=== PATIENT | male | born 1975 | race African-American/Black ===

== ENCOUNTER 2016-12-29 05:11 | Emergency (ER) | payer MEDICARE ==
[~2016-12-29] VITALS: Ht 177.8 cm; Wt 95.0 kg
[~2016-12-29 05:11] MED LIST: ALBU17AE26 IH; ALPR2TAB2 PO; CARI350T PO; DIPH25CA83 PO; FLOV22; INSLAN SQ; INSU100C3 SQ; LEVE1000 PO; LISI40TA4 PO; WARF10TA21 PO
[2016-12-29] MEDS ORDERED: SODIUM CHLORIDE 0.9% 1,000 ML IV ONE (06:04)
[2016-12-29] MEDS ORDERED: LEVETIRACETAM 500MG PREMIX 100 ML IV ONE (06:15)
[2016-12-29] MEDS ORDERED: NITROGLYCERIN OINT 1GM/INCH UDPKT TD ONE (06:15)
[2016-12-29 06:21] LABS: HEMATOCRIT. 30.1 % (42.0-52.0); HEMOGLOBIN. 9.7 g/dL (14.0-18.0); MEAN CORPUSCULAR HEMOGLOBIN 25.3 pg (28.0-32.0); MEAN CORPUSCULAR HGB CONC 32.2 g/dL (31.0-37.0); MEAN CORPUSCULAR VOLUME 78.8 fL (80.0-94.0); RED BLOOD CELL COUNT 3.82 mill/uL (4.7-6.1); RED CELL DISTRIBUTION WIDTH 16.3 % (11.6-14.6); WHITE BLOOD COUNT 7.3 x1000/uL (4.5-11.0)
[2016-12-29 06:34] LABS: DIFFERENTIAL COMMENT 1
[2016-12-29 06:38] LABS: ALANINE AMINOTRANSFERASE 15 IU/L (13-61); ANION GAP 9; CALCIUM 8.6 mg/dL (8.5-10.1); CARBON DIOXIDE 21 mEq/L (21-32); CHLORIDE 113 mEq/L (98-107); INDEX HEMOLYSI 1 (1-3); INDEX ICTERIC 1 (1-4); INDEX LIPEMIC 1 (1-3); LIPASE 235 IU/L (73-393); NT PRO B-TYPE NATRIURETIC PEP 134 pg/mL (5-125); TROPONIN I 0.13 ng/mL (0.00-0.04); UREA NITROGEN BLOOD 30 mg/dL (7-21); eGFR 50 mL/min (>60)
[2016-12-29] MEDS ORDERED: LORAZEPAM 2MG/ML CPJ IV ONE (06:45)
[2016-12-29 07:30] VITALS: BP 156/90
== END 2016-12-29 08:02 | disposition left against medical advice (07) ==
LOC: ER 05:13
DX: R07.89 Other chest pain (principal); C71.9 Malignant neoplasm of brain, unspecified; G40.909 Epilepsy, unspecified, not intractable, without status epilepticus; E11.65 Type 2 diabetes mellitus with hyperglycemia; E11.22 Type 2 diabetes mellitus with diabetic chronic kidney disease; N18.9 Chronic kidney disease, unspecified; I12.9 Hypertensive chronic kidney disease with stage 1 through stage 4 chronic kidney disease, or unspecified chronic kidney disease; I50.9 Heart failure, unspecified; D50.9 Iron deficiency anemia, unspecified; D56.3 Thalassemia minor; E87.8 Other disorders of electrolyte and fluid balance, not elsewhere classified; E87.5 Hyperkalemia; Z88.6 Allergy status to analgesic agent; Z88.8 Allergy status to other drugs, medicaments and biological substances; Z88.5 Allergy status to narcotic agent; Z88.0 Allergy status to penicillin; Z88.1 Allergy status to other antibiotic agents; Z91.012 Allergy to eggs; Z89.611 Acquired absence of right leg above knee; Z79.4 Long term (current) use of insulin; Z79.01 Long term (current) use of anticoagulants; J40 Bronchitis, not specified as acute or chronic; Z79.899 Other long term (current) drug therapy
CPT/HCPCS: 36415; 71010; 80053; 83690; 83880; 84484; 85025; 87804; 93005; 96360; 99285; J1953; J2060; J7030; Z7610

== ENCOUNTER 2017-01-21 18:29 | Observation (INO) | payer MEDICAID, MEDICARE ==
[~2017-01-21] VITALS: Ht 185.4 cm; Wt 119.7 kg
[2017-01-21] MEDS ORDERED: SODIUM CHLORIDE 0.9% 1,000 ML IV ONE (19:13)
[2017-01-21] MEDS ORDERED: METRONIDAZOLE 500 MG PREMIX 100 ML IV ONE (19:15)
[2017-01-21] MEDS ORDERED: AZTREONAM 2 GM in DEXT 5% WATER 100 ML IV ONE (19:15)
[2017-01-21] MEDS ORDERED: VANCOMYCIN 1,500 MG in DEXT 5% WATER 250 ML IV ONE (19:15)
[2017-01-21 19:50] LABS: PROTHROMBIN TIME 10.7 sec
[2017-01-21 19:54] LABS: BASOPHILS % 0.3 % (0.0-2.0); DIFFERENTIAL COMMENT 0; EOSINOPHILS % 0.5 % (0.0-5.0); HEMATOCRIT. 25.9 % (42.0-52.0); HEMOGLOBIN. 8.3 g/dL (14.0-18.0); LYMPHOCYTES % 49.5 % (20.0-50.0); MEAN CORPUSCULAR HEMOGLOBIN 24.4 pg (28.0-32.0); MEAN CORPUSCULAR HGB CONC 32.1 g/dL (31.0-37.0); MEAN CORPUSCULAR VOLUME 75.9 fL (80.0-94.0); NEUTROPHILS % 42.7 % (40.0-76.0); PLATELET 179 x1000/uL (130-400); RED BLOOD CELL COUNT 3.42 mill/uL (4.7-6.1); RED CELL DISTRIBUTION WIDTH 17.2 % (11.6-14.6); WHITE BLOOD COUNT 4.9 x1000/uL (4.5-11.0)
[2017-01-21 19:57] LABS: ALANINE AMINOTRANSFERASE 10 IU/L (13-61); ALBUMIN 2.7 g/dL (3.4-5.0); ANION GAP 13; CALCIUM 8.9 mg/dL (8.5-10.1); CARBON DIOXIDE 24 mEq/L (21-32); CHLORIDE 113 mEq/L (98-107); INDEX HEMOLYSI 1 (1-3); INDEX ICTERIC 1 (1-4); INDEX LIPEMIC 1 (1-3); UREA NITROGEN BLOOD 14 mg/dL (7-21); eGFR > 60 mL/min (>60)
[2017-01-21] MEDS ORDERED: MORPHINE SULFATE 4 MG/ML CPJ (NOT FOR IM USE) IV ONE (20:00)
[2017-01-21] MEDS ORDERED: ONDANSETRON HCL 4MG/2ML VIAL IV ONE (20:00)
[2017-01-21] MEDS ORDERED: LEVETIRACETAM 1,000 MG in SODIUM CHLORIDE 0.9% 100 ML IV ONE (21:00)
[2017-01-21 22:22] LABS: CLARITY URINE CLEAR (CLEAR); COLOR URINE YELLOW (YELLOW); GLUCOSE URINE NEGATIVE (NEGATIVE); KETONES URINE NEGATIVE (NEGATIVE); LEUKOCYTE ESTERASE URINE NEGATIVE (NEGATIVE); NITRITE URINE NEGATIVE (NEGATIVE); OCCULT BLOOD URINE 1+ (NEGATIVE); PROTEIN URINE 3+ (NEGATIVE); SPECIFIC GRAVITY URINE 1.012 (1.005-1.030); UROBILINOGEN URINE 0.2 E.U./dL (0.2-1.0)
[2017-01-21 22:55] LABS: BACTERIA URINE 1+; SQUAMOUS EPITHELIAL CELL URINE NONE SEEN /lpf (RARE/1+)
[2017-01-22] VITALS: BP 130/98
[2017-01-22 00:30] VITALS: BP 130/98
[2017-01-22] MEDS ORDERED: MORP60TA6 PO (00:54)
[2017-01-22] MEDS ORDERED: DEXTROSE 50% WATER 50ML SYRINGE IV PRN (01:15)
[2017-01-22] MEDS: MORPHINE SULFATE 2 MG/ML CPJ (NOT FOR IM USE) IV PRN ×3 (01:50→10:47)
[2017-01-22 04:00] VITALS: BP 111/60
[2017-01-22 06:15] LABS: HEMATOCRIT. 22.7 % (42.0-52.0); HEMOGLOBIN. 7.2 g/dL (14.0-18.0); MEAN CORPUSCULAR HEMOGLOBIN 24.6 pg (28.0-32.0); MEAN CORPUSCULAR HGB CONC 31.9 g/dL (31.0-37.0); MEAN CORPUSCULAR VOLUME 77.3 fL (80.0-94.0); MEAN PLATELET VOLUME 7.3 fl (7.4-10.4); PLATELET 139 x1000/uL (130-400); RED BLOOD CELL COUNT 2.93 mill/uL (4.7-6.1); RED CELL DISTRIBUTION WIDTH 17.2 % (11.6-14.6); WHITE BLOOD COUNT 4.5 x1000/uL (4.5-11.0)
[2017-01-22] MEDS: BLOOD SUGAR DIAGNOSTIC STRIP TEST SCH ×2 (06:17→12:40)
[2017-01-22 07:03] LABS: DIFFERENTIAL COMMENT 1
[2017-01-22] MEDS: INSULIN LISPRO 100 UNITS/ML SUBCUT SCH ×2 (07:25→13:10)
[2017-01-22 08:00] VITALS: BP 152/88
[2017-01-22 08:22] LABS: ALANINE AMINOTRANSFERASE 9 IU/L (13-61); ALBUMIN 2.3 g/dL (3.4-5.0); ANION GAP 11; CALCIUM 8.2 mg/dL (8.5-10.1); CARBON DIOXIDE 26 mEq/L (21-32); CHLORIDE 113 mEq/L (98-107); HDL CHOLESTEROL 24 mg/dL (40-59); INDEX HEMOLYSI 1 (1-3); INDEX ICTERIC 1 (1-4); INDEX LIPEMIC 1 (1-3); LDL CHOLESTEROL 65 mg/dL (5-100); TRIGLYCERIDE 111 mg/dL (0-150); UREA NITROGEN BLOOD 13 mg/dL (7-21); eGFR > 60 mL/min (>60)
[2017-01-22] MEDS ORDERED: ENOXAPARIN 30MG/0.3ML SYR SUBCUT SCH (09:00)
[2017-01-22] MEDS ORDERED: ASPIRIN 81MG TABLET PO SCH (09:00)
[2017-01-22] MEDS ORDERED: CELECOXIB 200MG CAPSULE PO SCH (09:00)
[2017-01-22] MEDS ORDERED: LEVETIRACETAM 500MG TABLET PO SCH (09:00)
[2017-01-22 11:21] LABS: ANISOCYTOSIS 2+; PLATELET ESTIMATE NORMAL
[2017-01-22 11:22] LABS: HYPOCHROMASIA 1+
[2017-01-22] MEDS ORDERED: PIPERACILLIN SODIUM/TAZOBACTAM 4.5 G in DEXT 5% WATER 100 ML IV SCH (11:30)
[2017-01-22 12:00] VITALS: BP 152/99
[2017-01-22] MEDS ORDERED: MEROPENEM 500 MG in SODIUM CHLORIDE 0.9% 50 ML IV SCH (13:30)
[2017-01-22] MEDS ORDERED: VANCOMYCIN 2,000 MG in DEXT 5% WATER 500 ML IV SCH (14:00)
== END 2017-01-22 14:00 | disposition left against medical advice (07) ==
LOC: ER 18:30 → 7WST 21:07 → INTOOBSV 21:07
PROVIDERS: ADMIT Internal Medicine; ATTEND Internal Medicine
DX: G40.909 Epilepsy, unspecified, not intractable, without status epilepticus (principal); J44.9 Chronic obstructive pulmonary disease, unspecified; J45.909 Unspecified asthma, uncomplicated; I50.9 Heart failure, unspecified; I11.0 Hypertensive heart disease with heart failure; E11.628 Type 2 diabetes mellitus with other skin complications; L08.9 Local infection of the skin and subcutaneous tissue, unspecified; D64.9 Anemia, unspecified; I73.9 Peripheral vascular disease, unspecified; Z86.718 Personal history of other venous thrombosis and embolism
CPT/HCPCS: 36415; 71010; 73630; 80053; 80061; 81001; 82962; 83036; 83605; 85025; 85610; 86850; 86900; 86901; 86920; 87040; 87086; 93005; 96365; 96366; 96367; 96375; 96376; 99285; G0378; J1953; J2185; J2270; J2405; J3370; J3490; J7030; J7050; J7060

== ENCOUNTER 2017-02-17 20:15 | Emergency (ER) | payer MEDICAID, MEDICARE ==
[~2017-02-17] VITALS: Ht 185.4 cm; Wt 118.0 kg
[~2017-02-17 20:15] MED LIST changes: +MORP60TA6 PO
[2017-02-17 22:25] VITALS: BP 170/81
[2017-02-17] MEDS ORDERED: VANCOMYCIN 1 G PREMIX 200 ML IV SCH (22:45)
== END 2017-02-18 00:32 | disposition left against medical advice (07) ==
LOC: ER 20:15
DX: R55 Syncope and collapse (principal); E11.9 Type 2 diabetes mellitus without complications; J45.909 Unspecified asthma, uncomplicated; J44.9 Chronic obstructive pulmonary disease, unspecified; I11.0 Hypertensive heart disease with heart failure; I50.9 Heart failure, unspecified; R51 Headache; Z79.4 Long term (current) use of insulin; Z79.01 Long term (current) use of anticoagulants; Z88.0 Allergy status to penicillin; Z88.5 Allergy status to narcotic agent; Z88.1 Allergy status to other antibiotic agents; Z88.6 Allergy status to analgesic agent; Z91.012 Allergy to eggs; W05.0XXA Fall from non-moving wheelchair, initial encounter; Y93.89 Activity, other specified; Y99.8 Other external cause status; Y92.89 Other specified places as the place of occurrence of the external cause
CPT/HCPCS: 70450; 93005; 99284; Z7610; 80053; 85610

== ENCOUNTER 2017-02-24 18:43 | Emergency (ER) | payer MEDICARE ==
[~2017-02-24] VITALS: Ht 157.5 cm; Wt 100.0 kg
[2017-02-24] MEDS ORDERED: MORPHINE SULFATE 4 MG/ML CPJ (NOT FOR IM USE) IV STA (23:13)
[2017-02-24] MEDS ORDERED: ONDANSETRON HCL 4MG/2ML VIAL IV STA (23:13)
[2017-02-24] MEDS ORDERED: CLINDAMYCIN 600 MG in DEXTROSE 5% WATER 50 ML IV ONE (23:15)
[2017-02-24 23:52] LABS: DIFFERENTIAL COMMENT 1; HEMATOCRIT. 24.6 % (42.0-52.0); MEAN CORPUSCULAR HEMOGLOBIN 25.3 pg (28.0-32.0); MEAN CORPUSCULAR HGB CONC 32.4 g/dL (31.0-37.0); MEAN PLATELET VOLUME 7.7 fl (7.4-10.4); PLATELET 121 x1000/uL (130-400); RED BLOOD CELL COUNT 3.15 mill/uL (4.7-6.1); RED CELL DISTRIBUTION WIDTH 17.1 % (11.6-14.6); WHITE BLOOD COUNT 5.5 x1000/uL (4.5-11.0)
[2017-02-25 00:03] LABS: PROTHROMBIN TIME 10.6 sec
[2017-02-25 00:06] LABS: ALANINE AMINOTRANSFERASE 19 IU/L (13-61); ALBUMIN 2.6 g/dL (3.4-5.0); ANION GAP 10; CALCIUM 8.3 mg/dL (8.5-10.1); CARBON DIOXIDE 24 mEq/L (21-32); CHLORIDE 113 mEq/L (98-107); INDEX HEMOLYSI 1 (1-3); INDEX ICTERIC 1 (1-4); INDEX LIPEMIC 1 (1-3); TROPONIN I 0.16 ng/mL (0.00-0.04); UREA NITROGEN BLOOD 17 mg/dL (7-21); eGFR 50 mL/min (>60)
[2017-02-25 00:15] LABS: HYPOCHROMASIA 1+; PLATELET ESTIMATE DECREASED
[2017-02-25 00:16] LABS: ANISOCYTOSIS 1+
[2017-02-25 01:30] VITALS: BP 140/90
[2017-02-25] MEDS ORDERED: DIPHENHYDRAMINE 50MG/ML VIAL IM ONE (02:45)
== END 2017-02-25 06:15 | disposition home or self-care (01) ==
LOC: ER 18:51
DX: R55 Syncope and collapse (principal); L97.429 Non-pressure chronic ulcer of left heel and midfoot with unspecified severity; E11.9 Type 2 diabetes mellitus without complications; I10 Essential (primary) hypertension; J44.9 Chronic obstructive pulmonary disease, unspecified; I50.9 Heart failure, unspecified; J45.909 Unspecified asthma, uncomplicated; Z89.611 Acquired absence of right leg above knee; Z88.0 Allergy status to penicillin; Z88.6 Allergy status to analgesic agent; Z91.013 Allergy to seafood; Z79.4 Long term (current) use of insulin; Z86.73 Personal history of transient ischemic attack (TIA), and cerebral infarction without residual deficits
CPT/HCPCS: 36415; 70450; 71010; 73620; 80053; 83605; 84484; 85025; 85610; 87040; 93005; 96365; 96372; 96375; 99285; J1200; J2270; J2405; J3490; Z7610; J7060

== ENCOUNTER 2017-03-31 09:37 | Observation (INO) | payer MEDICAID, MEDICARE ==
[~2017-03-31] VITALS: Ht 180.3 cm; Wt 94.3 kg
[2017-03-31] MEDS ORDERED: MORPHINE SULFATE 4 MG/ML CPJ (NOT FOR IM USE) IV STA (09:49)
[2017-03-31] MEDS ORDERED: ONDANSETRON HCL 4MG/2ML VIAL IV STA (09:49)
[2017-03-31] MEDS ORDERED: NITROGLYCERIN OINT 1GM/INCH UDPKT TD STA (09:49)
[2017-03-31 10:18] LABS: BASOPHILS % 0.5 % (0.0-2.0); EOSINOPHILS % 2.5 % (0.0-5.0); HEMATOCRIT. 24.5 % (42.0-52.0); HEMOGLOBIN. 7.9 g/dL (14.0-18.0); LYMPHOCYTES % 52.6 % (20.0-50.0); MEAN CORPUSCULAR HEMOGLOBIN 26.2 pg (28.0-32.0); MEAN CORPUSCULAR VOLUME 81.1 fL (80.0-94.0); MEAN PLATELET VOLUME 7.3 fl (7.4-10.4); MONOCYTES % 8.2 % (2.0-8.0); NEUTROPHILS % 36.2 % (40.0-76.0); PLATELET 192 x1000/uL (130-400); RED BLOOD CELL COUNT 3.02 mill/uL (4.7-6.1); RED CELL DISTRIBUTION WIDTH 18.1 % (11.6-14.6)
[2017-03-31 10:22] LABS: CHLORIDE 110 mEq/L (98-107)
[2017-03-31 10:25] LABS: INR 1.1; PARTIAL THROMBOPLASTIN TIME 25.4 sec (24.0-34.0); PROTHROMBIN TIME 11.4 sec
[2017-03-31 10:36] LABS: CARBON DIOXIDE 23 mEq/L (21-32); CREATINE KINASE 75 IU/L (39-308); CREATINE KINASE MB FRACTION 4.5 ng/mL (0.5-3.6)
[2017-03-31 10:44] LABS: TROPONIN I 0.63 ng/mL (0.00-0.04)
[2017-03-31] MEDS ORDERED: FUROSEMIDE 20MG/2ML VIAL IVP ONE (11:30)
[2017-03-31 16:38] VITALS: BP 119/72
[2017-03-31] MEDS ORDERED: IPRATROPIUM/ALBUTEROL 0.5-3(2.5)MG/3ML NEB INH PRN (18:15)
[2017-03-31] MEDS ORDERED: CLONIDINE 0.1MG TABLET PO PRN (18:15)
[2017-03-31] MEDS: ENOXAPARIN 40MG/0.4ML SYR SUBCUT SCH (19:43)
[2017-03-31 20:00] VITALS: BP 137/83
[2017-03-31] MEDS ORDERED: ONDANSETRON HCL 4MG/2ML VIAL IV PRN (21:00)
[2017-03-31] MEDS ORDERED: ACETAMINOPHEN 650MG/20.3ML UDC PO PRN (21:00)
[2017-03-31 23:52] LABS: TROPONIN I 0.54 ng/mL (0.00-0.04)
[2017-04-01] VITALS: BP 140/91
[2017-04-01 04:00] VITALS: BP 160/92
[2017-04-01 08:00] VITALS: BP 142/91
[2017-04-01 08:10] LABS: BASOPHILS % 0.5 % (0.0-2.0); EOSINOPHILS % 2.5 % (0.0-5.0); HEMATOCRIT. 22.5 % (42.0-52.0); HEMOGLOBIN. 7.4 g/dL (14.0-18.0); LYMPHOCYTES % 45.3 % (20.0-50.0); MEAN CORPUSCULAR HEMOGLOBIN 26.2 pg (28.0-32.0); MEAN CORPUSCULAR VOLUME 79.8 fL (80.0-94.0); MEAN PLATELET VOLUME 7.1 fl (7.4-10.4); MONOCYTES % 6.1 % (2.0-8.0); NEUTROPHILS % 45.6 % (40.0-76.0); PLATELET 136 x1000/uL (130-400); RED BLOOD CELL COUNT 2.82 mill/uL (4.7-6.1); RED CELL DISTRIBUTION WIDTH 17.8 % (11.6-14.6)
[2017-04-01 08:23] LABS: CREATINE KINASE 48 IU/L (39-308); HDL CHOLESTEROL 28 mg/dL (40-59); LDL CHOLESTEROL 48 mg/dL (5-100); T4 FREE 1.54 ng/dL (0.76-1.46)
[2017-04-01 08:39] LABS: TROPONIN I 0.71 ng/mL (0.00-0.04)
[2017-04-01] MEDS: ENOXAPARIN 40MG/0.4ML SYR SUBCUT SCH (09:00)
[2017-04-01 12:00] VITALS: BP 158/83
[2017-04-01 13:10] VITALS: BP 158/83
== END 2017-04-01 13:45 | disposition home or self-care (01) ==
LOC: ER 09:51 → INTOOBSV 11:51 → 5WST 11:51 → EDBEDREQ 11:53 → ENRESERV 15:51 → CANBEDREQ 16:03 → 5WST 18:01
PROVIDERS: ADMIT Internal Medicine; ATTEND Internal Medicine
DX: R07.89 Other chest pain (principal); E11.22 Type 2 diabetes mellitus with diabetic chronic kidney disease; I13.0 Hypertensive heart and chronic kidney disease with heart failure and stage 1 through stage 4 chronic kidney disease, or unspecified chronic kidney disease; I50.9 Heart failure, unspecified; J44.9 Chronic obstructive pulmonary disease, unspecified; N18.9 Chronic kidney disease, unspecified; D63.8 Anemia in other chronic diseases classified elsewhere; E11.51 Type 2 diabetes mellitus with diabetic peripheral angiopathy without gangrene; Z79.4 Long term (current) use of insulin; Z86.711 Personal history of pulmonary embolism; Z86.718 Personal history of other venous thrombosis and embolism; Z86.73 Personal history of transient ischemic attack (TIA), and cerebral infarction without residual deficits; Z91.19 Patient's noncompliance with other medical treatment and regimen; Z82.49 Family history of ischemic heart disease and other diseases of the circulatory system
CPT/HCPCS: 36415; 71010; 80048; 80053; 80061; 80307; 82550; 82553; 82962; 83690; 83880; 84439; 84443; 84484; 85025; 85610; 85730; 93005; 96374; 96375; 96376; 99285; G0378; J1940; J2270; J2405; J7050

== ENCOUNTER 2017-05-21 22:54 | Emergency (ER) | payer MEDICAID, MEDICARE ==
[~2017-05-21] VITALS: Ht 188 cm; Wt 112.0 kg
[2017-05-22] MEDS ORDERED: MORPHINE SULFATE 4 MG/ML CPJ (NOT FOR IM USE) IV STA (00:55)
[2017-05-22] MEDS ORDERED: ONDANSETRON HCL 4MG/2ML VIAL IV STA (00:55)
[2017-05-22 01:20] LABS: BASOPHILS % 0.4 % (0.0-2.0); HEMATOCRIT. 25.3 % (42.0-52.0); HEMOGLOBIN. 8.2 g/dL (14.0-18.0); LYMPHOCYTES % 56.3 % (20.0-50.0); MEAN CORPUSCULAR HEMOGLOBIN 25.9 pg (28.0-32.0); MEAN CORPUSCULAR VOLUME 79.3 fL (80.0-94.0); MEAN PLATELET VOLUME 7.6 fl (7.4-10.4); MONOCYTES % 6.7 % (2.0-8.0); NEUTROPHILS % 35.6 % (40.0-76.0); PLATELET 141 x1000/uL (130-400); RED BLOOD CELL COUNT 3.18 mill/uL (4.7-6.1); RED CELL DISTRIBUTION WIDTH 16.9 % (11.6-14.6)
[2017-05-22 01:37] LABS: CARBON DIOXIDE 17 mEq/L (21-32); CHLORIDE 112 mEq/L (98-107); TROPONIN I 0.28 ng/mL (0.00-0.04)
[2017-05-22 06:05] VITALS: BP 143/84
== END 2017-05-22 06:21 | disposition home or self-care (01) ==
LOC: ER 22:54
DX: R07.9 Chest pain, unspecified (principal); R11.0 Nausea; J45.909 Unspecified asthma, uncomplicated; E11.9 Type 2 diabetes mellitus without complications; I11.0 Hypertensive heart disease with heart failure; I50.9 Heart failure, unspecified; Z91.013 Allergy to seafood; Z88.8 Allergy status to other drugs, medicaments and biological substances; Z91.018 Allergy to other foods; Z88.0 Allergy status to penicillin; Z88.6 Allergy status to analgesic agent; Z88.4 Allergy status to anesthetic agent; Z88.1 Allergy status to other antibiotic agents; Z91.012 Allergy to eggs; Z79.01 Long term (current) use of anticoagulants; Z79.4 Long term (current) use of insulin
CPT/HCPCS: 36415; 71010; 80053; 84484; 85025; 93005; 96374; 96375; 99285; J2270; J2405; Z7610

== ENCOUNTER 2018-07-16 15:27 | Inpatient (IN) | payer OTHER, MEDICAID ==
[~2018-07-16] VITALS: Ht 177.8 cm; Wt 85.7 kg
[~2018-07-16 15:27] MED LIST changes: -CARI350T PO; +S350 PO
[2018-07-16] MEDS ORDERED: SODIUM CHLORIDE 0.9% 1000ML BAG (SEPSIS BOLUS) IV ONE (16:00)
[2018-07-16] MEDS ORDERED: MEROPENEM 1,000 MG in SODIUM CHLORIDE 0.9% 100 ML IV ONE (17:00)
[2018-07-16] MEDS ORDERED: VANCOMYCIN 1 G PREMIX 200 ML IV ONE (17:00)
[2018-07-16] MEDS ORDERED: MORPHINE SULFATE 4 MG/ML CPJ (NOT FOR IM USE) IV STA ×2 (18:17→20:36)
[2018-07-16 18:26] LABS: BG BASE EXCESS -1.5 mmol/L (-2.0-2.0); BG CARBOXYHEMOGLOBIN 0.4 % (0.5-1.5); BG DEOXYHEMOGLOBIN 3.4 % (0.0-5.0); BG FRACTION INSPIRED OXYGEN 21; BG HCO3 ACT 23.3 mmol/L (22.0-26.0); BG METHEMOGLOBIN 0.3 % (0.0-1.5); BG OXYGEN SATURATION 96.6 % (92.0-98.5); BG OXYHEMOGLOBIN 95.9 % (94.0-97.0); BG PCO2 39.4 mmHg (35.0-45.0); BG PO2 97.5 mmHg (75.0-100.0); BG SAMPLE SITE RIGHT BRACHIAL; BG TOTAL HEMOGLOBIN 8.4 g/dL (12.0-18.0); BG VENT MODE ROOM AIR
[2018-07-16 18:45] LABS: CHLORIDE 98 mEq/L (98-107)
[2018-07-16 18:46] LABS: BASOPHILS % 0.7 % (0.0-2.0); HEMOGLOBIN. 7.3 g/dL (14.0-18.0); LYMPHOCYTES % 40.6 % (20.0-50.0); MEAN CORPUSCULAR HEMOGLOBIN 29.7 pg (28.0-32.0); MEAN PLATELET VOLUME 7.4 fl (7.4-10.4); MONOCYTES % 7.9 % (2.0-8.0); NEUTROPHILS % 49.8 % (40.0-76.0); PLATELET 139 x1000/uL (130-400); RED BLOOD CELL COUNT 2.47 mill/uL (4.7-6.1); RED CELL DISTRIBUTION WIDTH 14.8 % (11.6-14.6)
[2018-07-16 18:47] LABS: INR 1.3; PROTHROMBIN TIME 12.9 sec (9.1-11.1)
[2018-07-16 18:49] LABS: ETHANOL BLOOD < 10 mg/dL
[2018-07-16] MEDS ORDERED: DEXTROSE 50% WATER 50ML SYRINGE IV ONE (19:15)
[2018-07-16] MEDS ORDERED: CLONIDINE 0.1MG TABLET PO PRN (20:30)
[2018-07-16] MEDS ORDERED: GUAIFENESIN 200MG/10ML SUGAR FREE UDC PO PRN (20:30)
[2018-07-16] MEDS ORDERED: MAGNESIUM/ALUMINUM HYDROXIDE/SIMETHICONE 30ML UDC PO PRN (20:30)
[2018-07-16] MEDS ORDERED: VANCOMYCIN 1 G PREMIX 200 ML IV SCH (20:30)
[2018-07-16 22:17] LABS: BG BASE EXCESS -5.4 mmol/L (-2.0-2.0); BG CARBOXYHEMOGLOBIN 0.4 % (0.5-1.5); BG DEOXYHEMOGLOBIN 3.5 % (0.0-5.0); BG FRACTION INSPIRED OXYGEN 28; BG METHEMOGLOBIN 0.3 % (0.0-1.5); BG OXYGEN SATURATION 96.5 % (92.0-98.5); BG OXYHEMOGLOBIN 95.8 % (94.0-97.0); BG PCO2 38.1 mmHg (35.0-45.0); BG PH 7.337 (7.350-7.450); BG PO2 101.6 mmHg (75.0-100.0); BG SAMPLE SITE RIGHT BRACHIAL; BG TOTAL HEMOGLOBIN 7.8 g/dL (12.0-18.0); BG VENT MODE NASAL CANNULA
[2018-07-16] MEDS ORDERED: ENOXAPARIN 40MG/0.4ML SYR SUBCUT SCH (22:30)
[2018-07-16] MEDS ORDERED: ENOXAPARIN 30MG/0.3ML SYR SUBCUT SCH (22:32)
[2018-07-16] MEDS ORDERED: DEXTROSE 50% WATER 50ML SYRINGE IV PRN (23:30)
[2018-07-17] VITALS: BP 126/88
[2018-07-17] MEDS ORDERED: VANCOMYCIN 2,000 MG in DEXT 5% WATER 500 ML IV NR ×2
[2018-07-17 00:44] VITALS: BP 118/51
[2018-07-17] MEDS: HYDROMORPHONE HCL/PF 2MG/ML CPJ IV PRN ×4 (01:21→20:46)
[2018-07-17] MEDS: CLINDAMYCIN 600MG PREMIX 50 ML IV SCH ×3 (01:21→17:53)
[2018-07-17 03:36] LABS: CLARITY URINE CLEAR (CLEAR); COLOR URINE YELLOW (YELLOW); KETONES URINE NEGATIVE (NEGATIVE); LEUKOCYTE ESTERASE URINE 2+ (NEGATIVE); NITRITE URINE NEGATIVE (NEGATIVE); OCCULT BLOOD URINE 1+ (NEGATIVE); PROTEIN URINE 2+ (NEGATIVE); SPECIFIC GRAVITY URINE 1.016 (1.005-1.030); UROBILINOGEN URINE 0.2 E.U./dL (0.2-1.0)
[2018-07-17 04:00] VITALS: BP 131/80
[2018-07-17 04:05] LABS: *AMPHETAMINES SCREEN URINE NEGATIVE (NEGATIVE); *BARBITURATES SCREEN URINE NEGATIVE (NEGATIVE); *BENZODIAZEPINES SCREEN URINE NEGATIVE (NEGATIVE); *COCAINE SCREEN URINE NEGATIVE (NEGATIVE); METHADONE URINE SCREEN NEGATIVE (NEGATIVE); OPIATES URINE SCREEN PRESUMTIVE POSITIVE (NEGATIVE)
[2018-07-17 04:06] LABS: CANNABINOID URINE SCREEN NEGATIVE (NEGATIVE); PHENCYCLIDINE URINE SCREEN NEGATIVE (NEGATIVE)
[2018-07-17] MEDS: BLOOD SUGAR DIAGNOSTIC STRIP TEST SCH ×4 (06:25→20:57)
[2018-07-17] MEDS: INSULIN LISPRO 100 UNITS/ML SUBCUT SCH ×4 (08:06→21:03)
[2018-07-17] MEDS: DOCUSATE SODIUM 100MG CAPSULE PO SCH (08:08)
[2018-07-17] MEDS ORDERED: FLUCONAZOLE 200MG TABLET PO NR (09:00)
[2018-07-17] MEDS: DIPHENHYDRAMINE 50MG/ML VIAL IV PRN ×3 (09:19→20:52)
[2018-07-17 10:30] LABS: BASOPHILS % 0.6 % (0.0-2.0); EOSINOPHILS % 1.8 % (0.0-5.0); HEMATOCRIT. 22.3 % (42.0-52.0); HEMOGLOBIN. 7.7 g/dL (14.0-18.0); MEAN CORPUSCULAR HEMOGLOBIN 30.7 pg (28.0-32.0); MEAN CORPUSCULAR VOLUME 89.5 fL (80.0-94.0); MEAN PLATELET VOLUME 7.6 fl (7.4-10.4); MONOCYTES % 6.7 % (2.0-8.0); NEUTROPHILS % 61.9 % (40.0-76.0); PLATELET 129 x1000/uL (130-400); RED CELL DISTRIBUTION WIDTH 14.6 % (11.6-14.6)
[2018-07-17 11:16] LABS: CHLORIDE 97 mEq/L (98-107)
[2018-07-17 12:00] VITALS: BP 104/59
[2018-07-17 12:53] LABS: HEPATITIS B SURFACE ANTIGEN NEGATIVE
[2018-07-17 13:23] LABS: HEPATITIS A AB IGM NEGATIVE (NEGATIVE)
[2018-07-17 16:00] VITALS: BP 150/95
[2018-07-17] MEDS: IPRATROPIUM/ALBUTEROL 0.5-3(2.5)MG/3ML NEB HHN SCH ×3 (18:03→23:51)
[2018-07-17 20:18] VITALS: BP 92/36
[2018-07-17] MEDS: ACETAMINOPHEN 325MG TABLET PO PRN (20:47)
[2018-07-18] VITALS (10 sets, daily range): BP systolic 86–134; BP diastolic 41–68
[2018-07-18] MEDS: CLINDAMYCIN 600MG PREMIX 50 ML IV SCH ×3 (02:00→22:16)
[2018-07-18] MEDS: IPRATROPIUM/ALBUTEROL 0.5-3(2.5)MG/3ML NEB HHN SCH ×5 (04:00→20:38)
[2018-07-18] MEDS: DIPHENHYDRAMINE 50MG/ML VIAL IV PRN ×3 (05:36→22:16)
[2018-07-18] MEDS: HYDROMORPHONE HCL/PF 2MG/ML CPJ IV PRN ×2 (05:37→10:49)
[2018-07-18] MEDS: BLOOD SUGAR DIAGNOSTIC STRIP TEST SCH ×4 (06:00→20:00)
[2018-07-18 06:44] LABS: BASOPHILS % 0.2 % (0.0-2.0); EOSINOPHILS % 4.8 % (0.0-5.0); LYMPHOCYTES % 36.4 % (20.0-50.0); MEAN CORPUSCULAR HEMOGLOBIN 30.5 pg (28.0-32.0); MEAN CORPUSCULAR VOLUME 89.1 fL (80.0-94.0); MEAN PLATELET VOLUME 7.9 fl (7.4-10.4); MONOCYTES % 7.8 % (2.0-8.0); NEUTROPHILS % 50.8 % (40.0-76.0); PLATELET 131 x1000/uL (130-400); RED BLOOD CELL COUNT 2.03 mill/uL (4.7-6.1); RED CELL DISTRIBUTION WIDTH 14.3 % (11.6-14.6)
[2018-07-18 07:07] LABS: CHLORIDE 95 mEq/L (98-107)
[2018-07-18 07:38] LABS: HEMATOCRIT. 18.1 % (42.0-52.0); HEMOGLOBIN. 6.2 g/dL (14.0-18.0)
[2018-07-18] MEDS: INSULIN LISPRO 100 UNITS/ML SUBCUT SCH ×3 (07:50→17:50)
[2018-07-18] MEDS ORDERED: LIDOCAINE HCL 1% 20ML VIAL (Pyxis) INJ ONE (07:59)
[2018-07-18] MEDS: DOCUSATE SODIUM 100MG CAPSULE PO SCH (09:00)
[2018-07-18 09:19] LABS: TOTAL IRON BINDING CAPACITY 116 ug/dL (250-450)
[2018-07-18] MEDS: CALCIUM CARBONATE 1250MG TABLET (500MG ELEMENTAL CALCIUM) PO SCH (10:48)
[2018-07-18] MEDS: FOLIC ACID/VITAMIN B COMP W-C TABLET PO SCH (10:48)
[2018-07-18] MEDS ORDERED: INSULIN GLARGINE UD 100 UNITS/ML SYR SUBCUT SCH (11:00)
[2018-07-18 23:41] LABS: HEMATOCRIT 25.3 % (42.0-52.0); HEMOGLOBIN 8.6 g/dL (14.0-18.0)
[2018-07-19] VITALS: BP 161/76
[2018-07-19] MEDS: IPRATROPIUM/ALBUTEROL 0.5-3(2.5)MG/3ML NEB HHN SCH ×5 (00:20→20:33)
[2018-07-19] MEDS: INSULIN LISPRO 100 UNITS/ML SUBCUT SCH ×5 (00:44→20:32)
[2018-07-19] MEDS: HYDROMORPHONE HCL/PF 2MG/ML CPJ IV PRN ×4 (00:49→20:20)
[2018-07-19 04:00] VITALS: BP 127/63
[2018-07-19] MEDS: CLINDAMYCIN 600MG PREMIX 50 ML IV SCH ×3 (06:04→21:20)
[2018-07-19] MEDS: BLOOD SUGAR DIAGNOSTIC STRIP TEST SCH ×4 (07:29→20:39)
[2018-07-19 08:00] VITALS: BP 128/68
[2018-07-19] MEDS: FOLIC ACID/VITAMIN B COMP W-C TABLET PO SCH (08:01)
[2018-07-19] MEDS: CALCIUM CARBONATE 1250MG TABLET (500MG ELEMENTAL CALCIUM) PO SCH (08:01)
[2018-07-19] MEDS: DIPHENHYDRAMINE 50MG/ML VIAL IV PRN ×3 (08:01→21:19)
[2018-07-19] MEDS: DOCUSATE SODIUM 100MG CAPSULE PO SCH (08:11)
[2018-07-19] MEDS: INSULIN GLARGINE UD 100 UNITS/ML SYR SUBCUT SCH (09:48)
[2018-07-19 10:29] LABS: BASOPHILS % 0.4 % (0.0-2.0); EOSINOPHILS % 7.2 % (0.0-5.0); HEMATOCRIT. 26.2 % (42.0-52.0); HEMOGLOBIN. 8.9 g/dL (14.0-18.0); MEAN CORPUSCULAR HEMOGLOBIN 29.2 pg (28.0-32.0); MEAN CORPUSCULAR VOLUME 86.1 fL (80.0-94.0); MEAN PLATELET VOLUME 7.8 fl (7.4-10.4); MONOCYTES % 7.1 % (2.0-8.0); NEUTROPHILS % 61.3 % (40.0-76.0); PLATELET 162 x1000/uL (130-400); RED BLOOD CELL COUNT 3.05 mill/uL (4.7-6.1); RED CELL DISTRIBUTION WIDTH 17.5 % (11.6-14.6)
[2018-07-19 11:54] LABS: CHLORIDE 100 mEq/L (98-107)
[2018-07-19 12:00] VITALS: BP 116/59
[2018-07-19 12:19] LABS: CREATINE KINASE 1709 IU/L (39-308)
[2018-07-19] MEDS: FERROUS SULFATE 325MG TABLET PO SCH ×2 (13:33→18:27)
[2018-07-19] MEDS ORDERED: OSELTAMIVIR 30MG CAPSULE PO SCH ×2 (15:42→15:44)
[2018-07-19 16:00] VITALS: BP 98/50
[2018-07-19] MEDS ORDERED: OSELTAMIVIR 30MG CAPSULE PO NR (17:00)
[2018-07-19] MEDS: FLUCONAZOLE 100MG TABLET PO SCH (18:28)
[2018-07-19 20:00] VITALS: BP 115/56
[2018-07-19] MEDS: EPOETIN ALFA 10000UNITS/ML VIAL SUBCUT SCH (20:20)
[2018-07-20] VITALS: BP 100/50
[2018-07-20] MEDS: IPRATROPIUM/ALBUTEROL 0.5-3(2.5)MG/3ML NEB HHN SCH ×7 (00:16→21:14)
[2018-07-20 04:00] VITALS: BP 127/62
[2018-07-20] MEDS: HYDROMORPHONE HCL/PF 2MG/ML CPJ IV PRN ×5 (04:41→23:40)
[2018-07-20] MEDS: CLINDAMYCIN 600MG PREMIX 50 ML IV SCH (05:10)
[2018-07-20] MEDS: DIPHENHYDRAMINE 50MG/ML VIAL IV PRN ×3 (06:26→20:02)
[2018-07-20 06:28] LABS: BASOPHILS % 0.5 % (0.0-2.0); EOSINOPHILS % 9.6 % (0.0-5.0); HEMATOCRIT. 23.9 % (42.0-52.0); HEMOGLOBIN. 8.2 g/dL (14.0-18.0); LYMPHOCYTES % 40.8 % (20.0-50.0); MEAN CORPUSCULAR HEMOGLOBIN 29.8 pg (28.0-32.0); MEAN CORPUSCULAR VOLUME 86.8 fL (80.0-94.0); MEAN PLATELET VOLUME 7.8 fl (7.4-10.4); MONOCYTES % 9.4 % (2.0-8.0); NEUTROPHILS % 39.7 % (40.0-76.0); PLATELET 153 x1000/uL (130-400); RED BLOOD CELL COUNT 2.75 mill/uL (4.7-6.1); RED CELL DISTRIBUTION WIDTH 16.8 % (11.6-14.6)
[2018-07-20] MEDS: FERROUS SULFATE 325MG TABLET PO SCH ×3 (07:50→17:50)
[2018-07-20] MEDS: BLOOD SUGAR DIAGNOSTIC STRIP TEST SCH ×4 (07:50→21:27)
[2018-07-20] MEDS: INSULIN LISPRO 100 UNITS/ML SUBCUT SCH ×4 (07:50→21:31)
[2018-07-20] MEDS: DOCUSATE SODIUM 100MG CAPSULE PO SCH (09:00)
[2018-07-20] MEDS ORDERED: NITROGLYCERIN 0.4MG TABLET SL SL PRN (09:30)
[2018-07-20] MEDS: FOLIC ACID/VITAMIN B COMP W-C TABLET PO SCH (09:36)
[2018-07-20] MEDS: FLUCONAZOLE 100MG TABLET PO SCH (09:36)
[2018-07-20] MEDS: CALCIUM CARBONATE 1250MG TABLET (500MG ELEMENTAL CALCIUM) PO SCH (09:37)
[2018-07-20] MEDS: INSULIN GLARGINE UD 100 UNITS/ML SYR SUBCUT SCH (10:00)
[2018-07-20 12:00] VITALS: BP 135/79
[2018-07-20] MEDS ORDERED: VANCOMYCIN 750 MG PREMIX 150 ML IV SCH (18:00)
[2018-07-20 20:00] VITALS: BP 127/74
[2018-07-21] MEDS: DIPHENHYDRAMINE 50MG/ML VIAL IV PRN ×4 (02:11→21:01)
[2018-07-21] MEDS: IPRATROPIUM/ALBUTEROL 0.5-3(2.5)MG/3ML NEB HHN SCH ×5 (04:00→20:59)
[2018-07-21 04:03] VITALS: BP 114/63
[2018-07-21] MEDS: BLOOD SUGAR DIAGNOSTIC STRIP TEST SCH ×5 (06:27→22:05)
[2018-07-21] MEDS: HYDROMORPHONE HCL/PF 2MG/ML CPJ IV PRN ×4 (06:27→19:59)
[2018-07-21 06:54] LABS: BASOPHILS % 0.5 % (0.0-2.0); EOSINOPHILS % 9.6 % (0.0-5.0); LYMPHOCYTES % 39.9 % (20.0-50.0); MEAN CORPUSCULAR HEMOGLOBIN 29.1 pg (28.0-32.0); MEAN PLATELET VOLUME 7.5 fl (7.4-10.4); MONOCYTES % 9.5 % (2.0-8.0); NEUTROPHILS % 40.5 % (40.0-76.0); PLATELET 191 x1000/uL (130-400); RED BLOOD CELL COUNT 3.27 mill/uL (4.7-6.1); RED CELL DISTRIBUTION WIDTH 17.2 % (11.6-14.6)
[2018-07-21 07:08] LABS: HEMATOCRIT. 28.5 % (42.0-52.0); HEMOGLOBIN. 9.5 g/dL (14.0-18.0)
[2018-07-21] MEDS: FERROUS SULFATE 325MG TABLET PO SCH ×3 (07:55→17:16)
[2018-07-21] MEDS: INSULIN LISPRO 100 UNITS/ML SUBCUT SCH ×4 (07:56→22:05)
[2018-07-21 08:00] VITALS: BP 101/60
[2018-07-21] MEDS: FLUCONAZOLE 100MG TABLET PO SCH (08:25)
[2018-07-21] MEDS: FOLIC ACID/VITAMIN B COMP W-C TABLET PO SCH (08:25)
[2018-07-21] MEDS: DOCUSATE SODIUM 100MG CAPSULE PO SCH ×2 (08:25→08:28)
[2018-07-21] MEDS: CALCIUM CARBONATE 1250MG TABLET (500MG ELEMENTAL CALCIUM) PO SCH (08:25)
[2018-07-21] MEDS: INSULIN GLARGINE UD 100 UNITS/ML SYR SUBCUT SCH (10:16)
[2018-07-21 12:00] VITALS: BP 93/51
[2018-07-21 16:00] VITALS: BP 94/54
[2018-07-21] MEDS ORDERED: GABAPENTIN 300MG CAPSULE PO SCH (17:00)
[2018-07-21] MEDS: PREGABALIN 50 MG CAPSULE PO SCH (17:16)
[2018-07-21 18:36] LABS: CLARITY URINE CLEAR (CLEAR); COLOR URINE YELLOW (YELLOW); KETONES URINE NEGATIVE (NEGATIVE); LEUKOCYTE ESTERASE URINE 1+ (NEGATIVE); NITRITE URINE NEGATIVE (NEGATIVE); OCCULT BLOOD URINE 1+ (NEGATIVE); PH URINE 5.5 (4.5-8.0); PROTEIN URINE 2+ (NEGATIVE); SPECIFIC GRAVITY URINE 1.015 (1.005-1.030); UROBILINOGEN URINE 0.2 E.U./dL (0.2-1.0)
[2018-07-21 20:00] VITALS: BP 126/57
[2018-07-22] VITALS (8 sets, daily range): BP systolic 85–109; BP diastolic 40–57
[2018-07-22] MEDS: HYDROMORPHONE HCL/PF 2MG/ML CPJ IV PRN ×2 (01:17→09:06)
[2018-07-22] MEDS: PREGABALIN 50 MG CAPSULE PO SCH ×3 (01:25→17:50)
[2018-07-22] MEDS: EPOETIN ALFA 10000UNITS/ML VIAL SUBCUT SCH (01:27)
[2018-07-22] MEDS: DIPHENHYDRAMINE 50MG/ML VIAL IV PRN ×2 (02:53→09:06)
[2018-07-22] MEDS: IPRATROPIUM/ALBUTEROL 0.5-3(2.5)MG/3ML NEB HHN SCH ×6 (04:40→21:36)
[2018-07-22 06:52] LABS: BASOPHILS % 0.8 % (0.0-2.0); EOSINOPHILS % 8.5 % (0.0-5.0); HEMATOCRIT. 25.5 % (42.0-52.0); HEMOGLOBIN. 8.8 g/dL (14.0-18.0); LYMPHOCYTES % 38.7 % (20.0-50.0); MEAN CORPUSCULAR HEMOGLOBIN 29.9 pg (28.0-32.0); MEAN CORPUSCULAR VOLUME 87.1 fL (80.0-94.0); MEAN PLATELET VOLUME 7.4 fl (7.4-10.4); MONOCYTES % 10.5 % (2.0-8.0); NEUTROPHILS % 41.5 % (40.0-76.0); PLATELET 191 x1000/uL (130-400); RED BLOOD CELL COUNT 2.93 mill/uL (4.7-6.1); RED CELL DISTRIBUTION WIDTH 16.7 % (11.6-14.6)
[2018-07-22] MEDS: BLOOD SUGAR DIAGNOSTIC STRIP TEST SCH ×4 (07:10→21:51)
[2018-07-22] MEDS ORDERED: FLUCONAZOLE 200 MG/100ML BAG 100 ML IV ONE (08:00)
[2018-07-22] MEDS: CALCIUM CARBONATE 1250MG TABLET (500MG ELEMENTAL CALCIUM) PO SCH (08:54)
[2018-07-22] MEDS: FLUCONAZOLE 100MG TABLET PO SCH (08:54)
[2018-07-22] MEDS: FERROUS SULFATE 325MG TABLET PO SCH ×3 (08:55→17:50)
[2018-07-22] MEDS: FOLIC ACID/VITAMIN B COMP W-C TABLET PO SCH (08:55)
[2018-07-22] MEDS: TAMSULOSIN HCL 0.4MG SR CAPSULE PO SCH (08:55)
[2018-07-22] MEDS: INSULIN LISPRO 100 UNITS/ML SUBCUT SCH ×4 (08:56→22:17)
[2018-07-22] MEDS: DOCUSATE SODIUM 100MG CAPSULE PO SCH (08:56)
[2018-07-22] MEDS: INSULIN GLARGINE UD 100 UNITS/ML SYR SUBCUT SCH (11:05)
[2018-07-22] MEDS ORDERED: PREGABALIN 75MG CAPSULE PO SCH (18:00)
[2018-07-23] VITALS: BP 82/42
[2018-07-23] MEDS: DIPHENHYDRAMINE 50MG/ML VIAL IV PRN ×2 (00:14→10:35)
[2018-07-23] MEDS: IPRATROPIUM/ALBUTEROL 0.5-3(2.5)MG/3ML NEB HHN SCH ×4 (02:10→20:50)
[2018-07-23 04:00] VITALS: BP 92/50
[2018-07-23] MEDS: BLOOD SUGAR DIAGNOSTIC STRIP TEST SCH ×4 (06:04→20:16)
[2018-07-23] MEDS: PREGABALIN 50 MG CAPSULE PO SCH ×2 (06:26→17:55)
[2018-07-23] MEDS: INSULIN LISPRO 100 UNITS/ML SUBCUT SCH ×4 (07:50→20:34)
[2018-07-23] MEDS ORDERED: FLUCONAZOLE 100MG TABLET PO SCH (09:00)
[2018-07-23] MEDS: FLUCONAZOLE 100MG TABLET PO SCH (09:00)
[2018-07-23 09:04] VITALS: BP 90/47
[2018-07-23] MEDS: FOLIC ACID/VITAMIN B COMP W-C TABLET PO SCH (09:58)
[2018-07-23] MEDS: DOCUSATE SODIUM 100MG CAPSULE PO SCH (09:58)
[2018-07-23] MEDS: FERROUS SULFATE 325MG TABLET PO SCH ×3 (09:58→17:55)
[2018-07-23] MEDS: TAMSULOSIN HCL 0.4MG SR CAPSULE PO SCH (10:35)
[2018-07-23] MEDS: CALCIUM CARBONATE 1250MG TABLET (500MG ELEMENTAL CALCIUM) PO SCH (10:35)
[2018-07-23] MEDS: INSULIN GLARGINE UD 100 UNITS/ML SYR SUBCUT SCH (10:57)
[2018-07-23 11:27] LABS: BASOPHILS % 0.6 % (0.0-2.0); HEMATOCRIT. 28.3 % (42.0-52.0); HEMOGLOBIN. 9.5 g/dL (14.0-18.0); LYMPHOCYTES % 31.5 % (20.0-50.0); MEAN CORPUSCULAR HEMOGLOBIN 29.4 pg (28.0-32.0); MEAN CORPUSCULAR VOLUME 87.2 fL (80.0-94.0); MEAN PLATELET VOLUME 7.5 fl (7.4-10.4); MONOCYTES % 8.3 % (2.0-8.0); NEUTROPHILS % 53.6 % (40.0-76.0); PLATELET 188 x1000/uL (130-400); RED BLOOD CELL COUNT 3.24 mill/uL (4.7-6.1); RED CELL DISTRIBUTION WIDTH 16.4 % (11.6-14.6)
[2018-07-23 12:41] VITALS: BP 95/43
[2018-07-23 17:21] VITALS: BP 120/94
[2018-07-23] MEDS: HYDROMORPHONE HCL/PF 2MG/ML CPJ IV PRN (17:59)
[2018-07-23 19:44] VITALS: BP 92/55
[2018-07-23] MEDS ORDERED: SODIUM CHLORIDE 0.9% 200 ML IV NR (20:15)
[2018-07-23 21:13] LABS: BG BASE EXCESS -0.8 mmol/L (-2.0-2.0); BG DEOXYHEMOGLOBIN 5.4 % (0.0-5.0); BG FRACTION INSPIRED OXYGEN 21; BG METHEMOGLOBIN 0.2 % (0.0-1.5); BG OXYGEN SATURATION 94.6 % (92.0-98.5); BG OXYHEMOGLOBIN 94.4 % (94.0-97.0); BG PCO2 39.9 mmHg (35.0-45.0); BG PH 7.397 (7.350-7.450); BG PO2 81.5 mmHg (75.0-100.0); BG SAMPLE SITE RIGHT BRACHIAL; BG TOTAL HEMOGLOBIN 9.6 g/dL (12.0-18.0); BG VENT MODE ROOM AIR
[2018-07-23] MEDS: EPOETIN ALFA 10000UNITS/ML VIAL SUBCUT SCH (21:38)
[2018-07-24] VITALS (33 sets, daily range): BP systolic 87–194; BP diastolic 42–150
[2018-07-24] MEDS: IPRATROPIUM/ALBUTEROL 0.5-3(2.5)MG/3ML NEB HHN SCH ×6 (00:09→20:05)
[2018-07-24] MEDS ORDERED: LEVETIRACETAM 500 MG in SODIUM CHLORIDE 0.9% 100 ML IV NR (04:00)
[2018-07-24] MEDS: BLOOD SUGAR DIAGNOSTIC STRIP TEST SCH ×4 (06:18→21:52)
[2018-07-24] MEDS: INSULIN LISPRO 100 UNITS/ML SUBCUT SCH ×4 (07:29→21:00)
[2018-07-24] MEDS: FERROUS SULFATE 325MG TABLET PO SCH ×4 (07:50→18:04)
[2018-07-24 08:17] LABS: BASOPHILS % 0.8 % (0.0-2.0); EOSINOPHILS % 4.1 % (0.0-5.0); HEMOGLOBIN. 8.4 g/dL (14.0-18.0); LYMPHOCYTES % 28.8 % (20.0-50.0); MEAN CORPUSCULAR HEMOGLOBIN 29.3 pg (28.0-32.0); MEAN CORPUSCULAR VOLUME 87.1 fL (80.0-94.0); MEAN PLATELET VOLUME 7.8 fl (7.4-10.4); MONOCYTES % 7.6 % (2.0-8.0); NEUTROPHILS % 58.7 % (40.0-76.0); PLATELET 207 x1000/uL (130-400); RED BLOOD CELL COUNT 2.87 mill/uL (4.7-6.1); RED CELL DISTRIBUTION WIDTH 16.4 % (11.6-14.6)
[2018-07-24] MEDS: CALCIUM CARBONATE 1250MG TABLET (500MG ELEMENTAL CALCIUM) PO SCH ×2 (08:21→09:00)
[2018-07-24] MEDS: LEVETIRACETAM 500MG TABLET PO SCH ×2 (08:21→09:00)
[2018-07-24] MEDS: DOCUSATE SODIUM 100MG CAPSULE PO SCH ×2 (08:21→09:00)
[2018-07-24] MEDS: FOLIC ACID/VITAMIN B COMP W-C TABLET PO SCH ×2 (08:21→09:00)
[2018-07-24] MEDS: FLUCONAZOLE 100MG TABLET PO SCH ×2 (08:21→09:00)
[2018-07-24] MEDS: TAMSULOSIN HCL 0.4MG SR CAPSULE PO SCH (09:00)
[2018-07-24] MEDS: INSULIN GLARGINE UD 100 UNITS/ML SYR SUBCUT SCH (10:00)
[2018-07-24 10:01] LABS: CHLORIDE 100 mEq/L (98-107)
[2018-07-24 10:05] LABS: BG BASE EXCESS -5.2 mmol/L (-2.0-2.0); BG CARBOXYHEMOGLOBIN 0.3 % (0.5-1.5); BG DEOXYHEMOGLOBIN 2.2 % (0.0-5.0); BG FRACTION INSPIRED OXYGEN 28; BG HCO3 ACT 19.8 mmol/L (22.0-26.0); BG METHEMOGLOBIN 0.3 % (0.0-1.5); BG OXYGEN SATURATION 97.8 % (92.0-98.5); BG OXYHEMOGLOBIN 97.2 % (94.0-97.0); BG PCO2 36.3 mmHg (35.0-45.0); BG PH 7.355 (7.350-7.450); BG PO2 122.7 mmHg (75.0-100.0); BG SAMPLE SITE RIGHT RADIAL; BG TOTAL HEMOGLOBIN 9.3 g/dL (12.0-18.0); BG VENT MODE NASAL CANNULA
[2018-07-24] MEDS: DEXT 5%/0.45% NACL 1000ML 1,000 ML IV SCH (10:31)
[2018-07-24] MEDS: DIPHENHYDRAMINE 50MG/ML VIAL IV PRN (20:21)
[2018-07-24] MEDS: LEVETIRACETAM 500 MG in SODIUM CHLORIDE 0.9% 100 ML IV SCH (20:22)
[2018-07-24] MEDS: HYDROMORPHONE HCL/PF 2MG/ML CPJ IV PRN (23:21)
[2018-07-25] VITALS (82 sets, daily range): BP systolic 47–157; BP diastolic 16–103
[2018-07-25] MEDS: NOREPINEPHRINE 4 MG in DEXT 5% WATER 246 ML IV PRN ×2 (02:55→12:08)
[2018-07-25] MEDS: DIPHENHYDRAMINE 50MG/ML VIAL IV PRN (03:40)
[2018-07-25] MEDS: HYDROMORPHONE HCL/PF 2MG/ML CPJ IV PRN ×4 (04:26→23:09)
[2018-07-25] MEDS: LEVETIRACETAM 500 MG in SODIUM CHLORIDE 0.9% 100 ML IV SCH ×2 (05:54→17:35)
[2018-07-25] MEDS: BLOOD SUGAR DIAGNOSTIC STRIP TEST SCH ×4 (07:50→21:00)
[2018-07-25] MEDS: IPRATROPIUM/ALBUTEROL 0.5-3(2.5)MG/3ML NEB HHN SCH ×4 (08:00→20:30)
[2018-07-25] MEDS: DEXT 5%/0.45% NACL 1000ML 1,000 ML IV SCH (08:12)
[2018-07-25] MEDS: FLUCONAZOLE 100MG TABLET PO SCH (08:13)
[2018-07-25] MEDS: FERROUS SULFATE 325MG TABLET PO SCH ×3 (08:13→17:40)
[2018-07-25] MEDS: DOCUSATE SODIUM 100MG CAPSULE PO SCH (08:13)
[2018-07-25] MEDS: FOLIC ACID/VITAMIN B COMP W-C TABLET PO SCH (08:13)
[2018-07-25] MEDS: CALCIUM CARBONATE 1250MG TABLET (500MG ELEMENTAL CALCIUM) PO SCH (08:13)
[2018-07-25] MEDS: TAMSULOSIN HCL 0.4MG SR CAPSULE PO SCH (08:13)
[2018-07-25] MEDS: INSULIN LISPRO 100 UNITS/ML SUBCUT SCH ×5 (08:14→23:07)
[2018-07-25 09:10] LABS: BASOPHILS % 0.8 % (0.0-2.0); EOSINOPHILS % 3.3 % (0.0-5.0); HEMATOCRIT. 28.5 % (42.0-52.0); HEMOGLOBIN. 9.6 g/dL (14.0-18.0); LYMPHOCYTES % 33.5 % (20.0-50.0); MEAN CORPUSCULAR HEMOGLOBIN 29.1 pg (28.0-32.0); MEAN CORPUSCULAR VOLUME 86.7 fL (80.0-94.0); MEAN PLATELET VOLUME 7.6 fl (7.4-10.4); NEUTROPHILS % 56.4 % (40.0-76.0); PLATELET 253 x1000/uL (130-400); RED BLOOD CELL COUNT 3.29 mill/uL (4.7-6.1); RED CELL DISTRIBUTION WIDTH 16.4 % (11.6-14.6)
[2018-07-25] MEDS: INSULIN GLARGINE UD 100 UNITS/ML SYR SUBCUT SCH (10:27)
[2018-07-25] MEDS: MIDODRINE HCL 5MG TABLET PO SCH ×2 (18:51→18:56)
[2018-07-26] VITALS (59 sets, daily range): BP systolic 74–144; BP diastolic 13–109
[2018-07-26] MEDS: IPRATROPIUM/ALBUTEROL 0.5-3(2.5)MG/3ML NEB HHN SCH ×5 (00:20→19:55)
[2018-07-26] MEDS: NOREPINEPHRINE 4 MG in DEXT 5% WATER 246 ML IV PRN (02:39)
[2018-07-26] MEDS: HYDROMORPHONE HCL/PF 2MG/ML CPJ IV PRN ×4 (05:31→21:41)
[2018-07-26] MEDS: LEVETIRACETAM 500 MG in SODIUM CHLORIDE 0.9% 100 ML IV SCH ×2 (05:31→18:03)
[2018-07-26] MEDS: DIPHENHYDRAMINE 50MG/ML VIAL IV PRN ×3 (06:07→18:00)
[2018-07-26] MEDS: BLOOD SUGAR DIAGNOSTIC STRIP TEST SCH ×4 (07:50→21:52)
[2018-07-26] MEDS ORDERED: MIDODRINE HCL 5MG TABLET PO SCH (09:00)
[2018-07-26 09:23] LABS: BASOPHILS % 0.7 % (0.0-2.0); EOSINOPHILS % 4.2 % (0.0-5.0); HEMATOCRIT. 27.3 % (42.0-52.0); HEMOGLOBIN. 9.1 g/dL (14.0-18.0); LYMPHOCYTES % 31.8 % (20.0-50.0); MEAN CORPUSCULAR HEMOGLOBIN 29.1 pg (28.0-32.0); MEAN CORPUSCULAR VOLUME 87.2 fL (80.0-94.0); MEAN PLATELET VOLUME 7.4 fl (7.4-10.4); MONOCYTES % 7.7 % (2.0-8.0); NEUTROPHILS % 55.6 % (40.0-76.0); PLATELET 244 x1000/uL (130-400); RED BLOOD CELL COUNT 3.13 mill/uL (4.7-6.1); RED CELL DISTRIBUTION WIDTH 16.5 % (11.6-14.6)
[2018-07-26 09:38] LABS: PHOSPHORUS 7.7 mg/dL (2.5-4.9)
[2018-07-26] MEDS: INSULIN GLARGINE UD 100 UNITS/ML SYR SUBCUT SCH (10:00)
[2018-07-26] MEDS: MIDODRINE HCL 5MG TABLET PO SCH ×4 (10:51→23:00)
[2018-07-26] MEDS: FOLIC ACID/VITAMIN B COMP W-C TABLET PO SCH (10:52)
[2018-07-26] MEDS: TAMSULOSIN HCL 0.4MG SR CAPSULE PO SCH (10:52)
[2018-07-26] MEDS: CALCIUM CARBONATE 1250MG TABLET (500MG ELEMENTAL CALCIUM) PO SCH (10:52)
[2018-07-26] MEDS: FLUCONAZOLE 100MG TABLET PO SCH (10:53)
[2018-07-26] MEDS: INSULIN LISPRO 100 UNITS/ML SUBCUT SCH ×4 (10:54→21:52)
[2018-07-26] MEDS: FERROUS SULFATE 325MG TABLET PO SCH ×3 (11:00→18:00)
[2018-07-26] MEDS: DOCUSATE SODIUM 100MG CAPSULE PO SCH (11:00)
[2018-07-26] MEDS: SEVELAMER CARBONATE 800 MG TABLET PO SCH ×2 (13:20→18:00)
[2018-07-26] MEDS ORDERED: HYDROMORPHONE HCL/PF 2MG/ML CPJ IV PRN (23:00)
[2018-07-26] MEDS ORDERED: INSULIN GLARGINE UD 100 UNITS/ML SYR SUBCUT NR (23:30)
[2018-07-27] VITALS (45 sets, daily range): BP systolic 2–188; BP diastolic 22–144
[2018-07-27] MEDS ORDERED: PREGABALIN 50 MG CAPSULE PO NR
[2018-07-27] MEDS: ONDANSETRON HCL 4MG/2ML INJ IV PRN (02:16)
[2018-07-27] MEDS: DIPHENHYDRAMINE 50MG/ML VIAL IV PRN (02:16)
[2018-07-27] MEDS: NOREPINEPHRINE 4 MG in DEXT 5% WATER 246 ML IV PRN ×2 (02:18→09:01)
[2018-07-27] MEDS: IPRATROPIUM/ALBUTEROL 0.5-3(2.5)MG/3ML NEB HHN SCH ×3 (04:00→21:04)
[2018-07-27] MEDS: LEVETIRACETAM 500 MG in SODIUM CHLORIDE 0.9% 100 ML IV SCH (06:09)
[2018-07-27] MEDS: BLOOD SUGAR DIAGNOSTIC STRIP TEST SCH ×4 (08:12→21:27)
[2018-07-27] MEDS: FERROUS SULFATE 325MG TABLET PO SCH ×3 (08:20→18:20)
[2018-07-27] MEDS ORDERED: DIPHENHYDRAMINE 25MG CAPSULE PO PRN (08:45)
[2018-07-27] MEDS ORDERED: NOREPINEPHRINE BITARTRATE 1MG/ML 4ML IV ONE (08:50)
[2018-07-27] MEDS: FOLIC ACID/VITAMIN B COMP W-C TABLET PO SCH (09:00)
[2018-07-27] MEDS: DOCUSATE SODIUM 100MG CAPSULE PO SCH (09:00)
[2018-07-27] MEDS: CALCIUM CARBONATE 1250MG TABLET (500MG ELEMENTAL CALCIUM) PO SCH (09:00)
[2018-07-27] MEDS: TAMSULOSIN HCL 0.4MG SR CAPSULE PO SCH (09:00)
[2018-07-27] MEDS: INSULIN LISPRO 100 UNITS/ML SUBCUT SCH ×4 (09:04→21:39)
[2018-07-27] MEDS: SEVELAMER CARBONATE 800 MG TABLET PO SCH ×3 (09:08→17:42)
[2018-07-27] MEDS: PREGABALIN 50 MG CAPSULE PO SCH (09:09)
[2018-07-27] MEDS: MIDODRINE HCL 5MG TABLET PO SCH ×3 (09:09→17:43)
[2018-07-27] MEDS: LEVETIRACETAM 500MG TABLET PO SCH ×2 (10:50→21:40)
[2018-07-27] MEDS: INSULIN GLARGINE UD 100 UNITS/ML SYR SUBCUT SCH (10:50)
[2018-07-27 12:35] LABS: HEMATOCRIT. 25.8 % (42.0-52.0); HEMOGLOBIN. 8.9 g/dL (14.0-18.0); LYMPHOCYTES % 34.1 % (20.0-50.0); MEAN CORPUSCULAR HEMOGLOBIN 29.6 pg (28.0-32.0); MEAN CORPUSCULAR VOLUME 85.8 fL (80.0-94.0); MEAN PLATELET VOLUME 7.3 fl (7.4-10.4); MONOCYTES % 6.1 % (2.0-8.0); NEUTROPHILS % 54.8 % (40.0-76.0); PLATELET 202 x1000/uL (130-400); RED BLOOD CELL COUNT 3.01 mill/uL (4.7-6.1); RED CELL DISTRIBUTION WIDTH 16.3 % (11.6-14.6)
[2018-07-27] MEDS: LIDOCAINE HCL 4% CREAM 76GM TUBE TP SCH ×2 (14:00→21:40)
[2018-07-28] VITALS (30 sets, daily range): BP systolic 81–149; BP diastolic 22–106
[2018-07-28] MEDS: IPRATROPIUM/ALBUTEROL 0.5-3(2.5)MG/3ML NEB HHN SCH ×6 (00:40→21:54)
[2018-07-28] MEDS: NOREPINEPHRINE 4 MG in DEXT 5% WATER 246 ML IV PRN (00:51)
[2018-07-28] MEDS: LIDOCAINE HCL 4% CREAM 76GM TUBE TP SCH ×4 (05:44→21:33)
[2018-07-28] MEDS: MIDODRINE HCL 5MG TABLET PO SCH ×4 (05:45→21:32)
[2018-07-28 05:57] LABS: BASOPHILS % 0.7 % (0.0-2.0); EOSINOPHILS % 3.1 % (0.0-5.0); HEMATOCRIT. 26.6 % (42.0-52.0); LYMPHOCYTES % 32.9 % (20.0-50.0); MEAN CORPUSCULAR HEMOGLOBIN 29.1 pg (28.0-32.0); MEAN PLATELET VOLUME 7.4 fl (7.4-10.4); MONOCYTES % 5.1 % (2.0-8.0); NEUTROPHILS % 58.2 % (40.0-76.0); PLATELET 195 x1000/uL (130-400); RED BLOOD CELL COUNT 3.09 mill/uL (4.7-6.1); RED CELL DISTRIBUTION WIDTH 16.3 % (11.6-14.6)
[2018-07-28] MEDS: FERROUS SULFATE 325MG TABLET PO SCH ×3 (08:11→17:39)
[2018-07-28] MEDS: LEVETIRACETAM 500MG TABLET PO SCH ×2 (08:11→21:33)
[2018-07-28] MEDS: CALCIUM CARBONATE 1250MG TABLET (500MG ELEMENTAL CALCIUM) PO SCH (08:11)
[2018-07-28] MEDS: DOCUSATE SODIUM 100MG CAPSULE PO SCH (08:11)
[2018-07-28] MEDS: PREGABALIN 50 MG CAPSULE PO SCH (08:11)
[2018-07-28] MEDS: FOLIC ACID/VITAMIN B COMP W-C TABLET PO SCH (08:11)
[2018-07-28] MEDS: SEVELAMER CARBONATE 800 MG TABLET PO SCH ×3 (08:11→17:40)
[2018-07-28] MEDS: BLOOD SUGAR DIAGNOSTIC STRIP TEST SCH ×4 (08:11→21:33)
[2018-07-28] MEDS: TAMSULOSIN HCL 0.4MG SR CAPSULE PO SCH (08:11)
[2018-07-28] MEDS: INSULIN LISPRO 100 UNITS/ML SUBCUT SCH ×4 (08:53→21:34)
[2018-07-28] MEDS: INSULIN GLARGINE UD 100 UNITS/ML SYR SUBCUT SCH (10:00)
[2018-07-28] MEDS: HYDROMORPHONE HCL 2MG TABLET PO PRN (21:34)
[2018-07-29] VITALS: BP 115/40
[2018-07-29 04:00] VITALS: BP 97/39
[2018-07-29] MEDS: IPRATROPIUM/ALBUTEROL 0.5-3(2.5)MG/3ML NEB HHN SCH ×5 (05:07→19:33)
[2018-07-29] MEDS: LIDOCAINE HCL 4% CREAM 76GM TUBE TP SCH ×3 (06:30→20:52)
[2018-07-29] MEDS: MIDODRINE HCL 5MG TABLET PO SCH ×3 (06:30→20:52)
[2018-07-29] MEDS: BLOOD SUGAR DIAGNOSTIC STRIP TEST SCH ×4 (06:37→20:52)
[2018-07-29 08:00] VITALS: BP 107/27
[2018-07-29] MEDS: FERROUS SULFATE 325MG TABLET PO SCH ×3 (08:10→17:41)
[2018-07-29] MEDS: SEVELAMER CARBONATE 800 MG TABLET PO SCH ×3 (08:10→17:41)
[2018-07-29] MEDS: LEVETIRACETAM 500MG TABLET PO SCH ×2 (08:52→20:52)
[2018-07-29] MEDS: INSULIN LISPRO 100 UNITS/ML SUBCUT SCH ×4 (08:53→20:53)
[2018-07-29] MEDS: TAMSULOSIN HCL 0.4MG SR CAPSULE PO SCH (09:00)
[2018-07-29] MEDS: PREGABALIN 50 MG CAPSULE PO SCH ×2 (09:00→14:36)
[2018-07-29] MEDS: DOCUSATE SODIUM 100MG CAPSULE PO SCH (09:00)
[2018-07-29] MEDS: CALCIUM CARBONATE 1250MG TABLET (500MG ELEMENTAL CALCIUM) PO SCH (09:00)
[2018-07-29] MEDS: FOLIC ACID/VITAMIN B COMP W-C TABLET PO SCH (09:00)
[2018-07-29] MEDS: INSULIN GLARGINE UD 100 UNITS/ML SYR SUBCUT SCH (10:00)
[2018-07-29 12:00] VITALS: BP 96/26
[2018-07-29 16:00] VITALS: BP 109/30
[2018-07-29 19:50] LABS: BG BASE EXCESS -4.7 mmol/L (-2.0-2.0); BG CARBOXYHEMOGLOBIN 0.3 % (0.5-1.5); BG DEOXYHEMOGLOBIN 4.4 % (0.0-5.0); BG FRACTION INSPIRED OXYGEN 21; BG HCO3 ACT 19.9 mmol/L (22.0-26.0); BG METHEMOGLOBIN 0.4 % (0.0-1.5); BG OXYGEN SATURATION 95.6 % (92.0-98.5); BG OXYHEMOGLOBIN 94.9 % (94.0-97.0); BG PCO2 34.8 mmHg (35.0-45.0); BG PH 7.376 (7.350-7.450); BG PO2 89.8 mmHg (75.0-100.0); BG SAMPLE SITE RIGHT RADIAL; BG VENT MODE ROOM AIR
[2018-07-29] MEDS: HYDROMORPHONE HCL 2MG TABLET PO PRN (22:33)
[2018-07-29 23:43] VITALS: BP 118/38
[2018-07-30] VITALS (7 sets, daily range): BP systolic 98–144; BP diastolic 39–66
[2018-07-30] MEDS: IPRATROPIUM/ALBUTEROL 0.5-3(2.5)MG/3ML NEB HHN SCH ×5 (00:19→21:24)
[2018-07-30] MEDS: ACETAMINOPHEN 325MG TABLET PO PRN (04:34)
[2018-07-30 05:09] LABS: BASOPHILS % 0.7 % (0.0-2.0); EOSINOPHILS % 2.1 % (0.0-5.0); HEMATOCRIT. 21.5 % (42.0-52.0); HEMOGLOBIN. 7.3 g/dL (14.0-18.0); LYMPHOCYTES % 35.5 % (20.0-50.0); MEAN CORPUSCULAR HEMOGLOBIN 29.2 pg (28.0-32.0); MEAN CORPUSCULAR VOLUME 85.9 fL (80.0-94.0); MEAN PLATELET VOLUME 7.7 fl (7.4-10.4); MONOCYTES % 5.9 % (2.0-8.0); NEUTROPHILS % 55.8 % (40.0-76.0); PLATELET 177 x1000/uL (130-400)
[2018-07-30] MEDS: MIDODRINE HCL 5MG TABLET PO SCH ×3 (06:33→21:39)
[2018-07-30] MEDS: LIDOCAINE HCL 4% CREAM 76GM TUBE TP SCH ×3 (06:34→21:39)
[2018-07-30] MEDS: BLOOD SUGAR DIAGNOSTIC STRIP TEST SCH ×4 (06:34→20:57)
[2018-07-30] MEDS: INSULIN LISPRO 100 UNITS/ML SUBCUT SCH ×4 (06:35→21:18)
[2018-07-30] MEDS: PREGABALIN 50 MG CAPSULE PO SCH (09:00)
[2018-07-30] MEDS: SEVELAMER CARBONATE 800 MG TABLET PO SCH ×3 (10:00→18:10)
[2018-07-30] MEDS: FERROUS SULFATE 325MG TABLET PO SCH ×3 (10:02→18:10)
[2018-07-30] MEDS: DOCUSATE SODIUM 100MG CAPSULE PO SCH (10:02)
[2018-07-30] MEDS: LEVETIRACETAM 500MG TABLET PO SCH ×2 (10:02→21:15)
[2018-07-30] MEDS: FOLIC ACID/VITAMIN B COMP W-C TABLET PO SCH (10:02)
[2018-07-30] MEDS: TAMSULOSIN HCL 0.4MG SR CAPSULE PO SCH (10:03)
[2018-07-30] MEDS: CALCIUM CARBONATE 1250MG TABLET (500MG ELEMENTAL CALCIUM) PO SCH (10:03)
[2018-07-30] MEDS ORDERED: DIPHENHYDRAMINE 50MG/ML VIAL IV SCH (10:30)
[2018-07-30] MEDS: INSULIN GLARGINE UD 100 UNITS/ML SYR SUBCUT SCH (10:56)
[2018-07-30] MEDS: HYDROMORPHONE HCL 2MG TABLET PO PRN ×2 (11:06→21:16)
[2018-07-30] MEDS: CLOTRIMAZOLE 1% CREAM 30GM TOP SCH (21:00)
[2018-07-31] MEDS: IPRATROPIUM/ALBUTEROL 0.5-3(2.5)MG/3ML NEB HHN SCH ×7 (00:18→23:56)
[2018-07-31] MEDS: LIDOCAINE HCL 4% CREAM 76GM TUBE TP SCH ×3 (05:46→21:27)
[2018-07-31] MEDS: MIDODRINE HCL 5MG TABLET PO SCH ×3 (05:46→21:21)
[2018-07-31] MEDS: BLOOD SUGAR DIAGNOSTIC STRIP TEST SCH ×4 (07:40→20:41)
[2018-07-31] MEDS: DOCUSATE SODIUM 100MG CAPSULE PO SCH (07:55)
[2018-07-31] MEDS: LEVETIRACETAM 500MG TABLET PO SCH ×2 (07:55→20:33)
[2018-07-31] MEDS: SEVELAMER CARBONATE 800 MG TABLET PO SCH ×3 (07:55→18:03)
[2018-07-31] MEDS: FERROUS SULFATE 325MG TABLET PO SCH ×3 (07:55→18:03)
[2018-07-31] MEDS: CALCIUM CARBONATE 1250MG TABLET (500MG ELEMENTAL CALCIUM) PO SCH (07:55)
[2018-07-31] MEDS: TAMSULOSIN HCL 0.4MG SR CAPSULE PO SCH (07:56)
[2018-07-31 08:00] VITALS: BP_SYST 118; BP_SYST 99; BP_DIAS 48; BP_DIAS 64
[2018-07-31] MEDS: INSULIN LISPRO 100 UNITS/ML SUBCUT SCH ×4 (08:00→20:41)
[2018-07-31] MEDS: PREGABALIN 50 MG CAPSULE PO SCH (08:05)
[2018-07-31] MEDS: FOLIC ACID/VITAMIN B COMP W-C TABLET PO SCH (08:05)
[2018-07-31] MEDS: CLOTRIMAZOLE 1% CREAM 30GM TOP SCH ×2 (09:00→21:27)
[2018-07-31] MEDS: HYDROMORPHONE HCL 2MG TABLET PO PRN ×2 (11:23→21:17)
[2018-07-31] MEDS: INSULIN GLARGINE UD 100 UNITS/ML SYR SUBCUT SCH (11:24)
[2018-07-31 11:52] VITALS: BP 118/65
[2018-07-31 12:28] LABS: BASOPHILS % 0.7 % (0.0-2.0); EOSINOPHILS % 2.9 % (0.0-5.0); HEMATOCRIT. 27.8 % (42.0-52.0); HEMOGLOBIN. 9.4 g/dL (14.0-18.0); LYMPHOCYTES % 30.6 % (20.0-50.0); MEAN PLATELET VOLUME 7.5 fl (7.4-10.4); MONOCYTES % 5.9 % (2.0-8.0); NEUTROPHILS % 59.9 % (40.0-76.0); PLATELET 204 x1000/uL (130-400); RED BLOOD CELL COUNT 3.24 mill/uL (4.7-6.1); RED CELL DISTRIBUTION WIDTH 16.4 % (11.6-14.6)
[2018-07-31] MEDS: DIPHENHYDRAMINE 50MG/ML VIAL IV PRN ×2 (15:12→21:15)
[2018-07-31 16:00] VITALS: BP 123/63
[2018-07-31 20:00] VITALS: BP 143/61
[2018-08-01] VITALS (7 sets, daily range): BP systolic 81–129; BP diastolic 46–66
[2018-08-01] MEDS: DIPHENHYDRAMINE 50MG/ML VIAL IV PRN ×4 (02:33→22:33)
[2018-08-01] MEDS: IPRATROPIUM/ALBUTEROL 0.5-3(2.5)MG/3ML NEB HHN SCH ×5 (03:55→20:08)
[2018-08-01] MEDS: MIDODRINE HCL 5MG TABLET PO SCH ×3 (05:26→22:33)
[2018-08-01] MEDS: LIDOCAINE HCL 4% CREAM 76GM TUBE TP SCH ×3 (05:55→21:37)
[2018-08-01] MEDS: HYDROMORPHONE HCL 2MG TABLET PO PRN (05:57)
[2018-08-01] MEDS: BLOOD SUGAR DIAGNOSTIC STRIP TEST SCH ×4 (06:03→21:41)
[2018-08-01] MEDS: SEVELAMER CARBONATE 800 MG TABLET PO SCH ×3 (08:10→18:10)
[2018-08-01] MEDS: INSULIN LISPRO 100 UNITS/ML SUBCUT SCH ×4 (08:10→21:00)
[2018-08-01] MEDS: FERROUS SULFATE 325MG TABLET PO SCH ×3 (09:21→18:10)
[2018-08-01] MEDS: PREGABALIN 50 MG CAPSULE PO SCH (09:21)
[2018-08-01] MEDS: LEVETIRACETAM 500MG TABLET PO SCH ×2 (09:22→22:33)
[2018-08-01] MEDS: DOCUSATE SODIUM 100MG CAPSULE PO SCH (09:22)
[2018-08-01] MEDS: TAMSULOSIN HCL 0.4MG SR CAPSULE PO SCH (09:22)
[2018-08-01] MEDS: CALCIUM CARBONATE 1250MG TABLET (500MG ELEMENTAL CALCIUM) PO SCH (09:22)
[2018-08-01] MEDS: FOLIC ACID/VITAMIN B COMP W-C TABLET PO SCH (09:22)
[2018-08-01] MEDS: CLOTRIMAZOLE 1% CREAM 30GM TOP SCH ×2 (09:29→21:37)
[2018-08-01] MEDS: INSULIN GLARGINE UD 100 UNITS/ML SYR SUBCUT SCH (09:40)
[2018-08-01 17:19] LABS: BASOPHILS % 0.6 % (0.0-2.0); EOSINOPHILS % 1.3 % (0.0-5.0); HEMATOCRIT. 26.3 % (42.0-52.0); HEMOGLOBIN. 8.7 g/dL (14.0-18.0); LYMPHOCYTES % 27.5 % (20.0-50.0); MEAN CORPUSCULAR HEMOGLOBIN 28.7 pg (28.0-32.0); MEAN CORPUSCULAR VOLUME 86.3 fL (80.0-94.0); MEAN PLATELET VOLUME 7.7 fl (7.4-10.4); MONOCYTES % 5.5 % (2.0-8.0); NEUTROPHILS % 65.1 % (40.0-76.0); PLATELET 213 x1000/uL (130-400); RED BLOOD CELL COUNT 3.05 mill/uL (4.7-6.1); RED CELL DISTRIBUTION WIDTH 16.5 % (11.6-14.6)
[2018-08-02] VITALS: BP 118/56
[2018-08-02] MEDS: IPRATROPIUM/ALBUTEROL 0.5-3(2.5)MG/3ML NEB HHN SCH ×6 (00:22→20:00)
[2018-08-02] MEDS: ONDANSETRON HCL 4MG/2ML INJ IV PRN ×2 (03:25→12:14)
[2018-08-02 04:00] VITALS: BP 134/75
[2018-08-02] MEDS: DIPHENHYDRAMINE 50MG/ML VIAL IV PRN ×4 (04:08→22:09)
[2018-08-02] MEDS: BLOOD SUGAR DIAGNOSTIC STRIP TEST SCH ×4 (06:08→21:57)
[2018-08-02] MEDS: LIDOCAINE HCL 4% CREAM 76GM TUBE TP SCH ×3 (06:08→22:11)
[2018-08-02] MEDS: MIDODRINE HCL 5MG TABLET PO SCH ×3 (06:34→23:36)
[2018-08-02] MEDS: INSULIN LISPRO 100 UNITS/ML SUBCUT SCH ×4 (07:58→21:00)
[2018-08-02 08:09] VITALS: BP 116/64
[2018-08-02] MEDS: CLOTRIMAZOLE 1% CREAM 30GM TOP SCH ×2 (09:00→22:10)
[2018-08-02] MEDS: SEVELAMER CARBONATE 800 MG TABLET PO SCH ×3 (09:04→18:08)
[2018-08-02] MEDS: CALCIUM CARBONATE 1250MG TABLET (500MG ELEMENTAL CALCIUM) PO SCH (09:05)
[2018-08-02] MEDS: FERROUS SULFATE 325MG TABLET PO SCH ×3 (09:05→18:08)
[2018-08-02] MEDS: LEVETIRACETAM 500MG TABLET PO SCH ×2 (09:05→22:10)
[2018-08-02] MEDS: FOLIC ACID/VITAMIN B COMP W-C TABLET PO SCH (09:05)
[2018-08-02] MEDS: DOCUSATE SODIUM 100MG CAPSULE PO SCH (09:06)
[2018-08-02] MEDS: PREGABALIN 50 MG CAPSULE PO SCH (09:06)
[2018-08-02] MEDS: TAMSULOSIN HCL 0.4MG SR CAPSULE PO SCH (09:08)
[2018-08-02 11:59] VITALS: BP 109/53
[2018-08-02] MEDS: LIDOCAINE 5% PATCH TOP SCH (12:22)
[2018-08-02] MEDS: INSULIN GLARGINE UD 100 UNITS/ML SYR SUBCUT SCH (12:24)
[2018-08-02 15:39] LABS: BASOPHILS % 0.7 % (0.0-2.0); EOSINOPHILS % 0.6 % (0.0-5.0); HEMATOCRIT. 25.6 % (42.0-52.0); HEMOGLOBIN. 8.6 g/dL (14.0-18.0); LYMPHOCYTES % 45.5 % (20.0-50.0); MEAN CORPUSCULAR HEMOGLOBIN 28.8 pg (28.0-32.0); MEAN CORPUSCULAR VOLUME 85.7 fL (80.0-94.0); MEAN PLATELET VOLUME 7.9 fl (7.4-10.4); MONOCYTES % 5.3 % (2.0-8.0); NEUTROPHILS % 47.9 % (40.0-76.0); PLATELET 203 x1000/uL (130-400); RED BLOOD CELL COUNT 2.99 mill/uL (4.7-6.1); RED CELL DISTRIBUTION WIDTH 17.4 % (11.6-14.6)
[2018-08-02 16:26] VITALS: BP 98/53
[2018-08-02 20:00] VITALS: BP 118/66
[2018-08-02] MEDS: EPOETIN ALFA 10000UNITS/ML VIAL SUBCUT SCH (22:10)
[2018-08-03] MEDS: IPRATROPIUM/ALBUTEROL 0.5-3(2.5)MG/3ML NEB HHN SCH ×6 (00:16→20:46)
[2018-08-03 00:43] VITALS: BP 107/50
[2018-08-03 04:00] VITALS: BP 116/64
[2018-08-03] MEDS: LIDOCAINE HCL 4% CREAM 76GM TUBE TP SCH ×3 (05:06→22:02)
[2018-08-03] MEDS: MIDODRINE HCL 5MG TABLET PO SCH ×3 (05:06→21:48)
[2018-08-03] MEDS: DIPHENHYDRAMINE 50MG/ML VIAL IV PRN ×5 (05:06→23:12)
[2018-08-03] MEDS: BLOOD SUGAR DIAGNOSTIC STRIP TEST SCH ×4 (06:58→21:00)
[2018-08-03 07:42] VITALS: BP 101/62
[2018-08-03] MEDS: SEVELAMER CARBONATE 800 MG TABLET PO SCH ×3 (08:10→18:10)
[2018-08-03] MEDS: FERROUS SULFATE 325MG TABLET PO SCH ×3 (08:10→18:10)
[2018-08-03] MEDS: INSULIN LISPRO 100 UNITS/ML SUBCUT SCH ×4 (08:10→21:00)
[2018-08-03] MEDS: FOLIC ACID/VITAMIN B COMP W-C TABLET PO SCH (09:00)
[2018-08-03] MEDS: CALCIUM CARBONATE 1250MG TABLET (500MG ELEMENTAL CALCIUM) PO SCH (09:00)
[2018-08-03] MEDS: DOCUSATE SODIUM 100MG CAPSULE PO SCH (09:00)
[2018-08-03] MEDS: LIDOCAINE 5% PATCH TOP SCH (09:17)
[2018-08-03] MEDS: TAMSULOSIN HCL 0.4MG SR CAPSULE PO SCH (09:19)
[2018-08-03] MEDS: LEVETIRACETAM 500MG TABLET PO SCH ×2 (09:19→21:48)
[2018-08-03] MEDS: PREGABALIN 50 MG CAPSULE PO SCH (09:19)
[2018-08-03] MEDS: INSULIN GLARGINE UD 100 UNITS/ML SYR SUBCUT SCH (09:21)
[2018-08-03] MEDS: CLOTRIMAZOLE 1% CREAM 30GM TOP SCH ×2 (09:22→22:02)
[2018-08-03 11:56] VITALS: BP 95/52
[2018-08-03 13:37] LABS: BASOPHILS % 0.7 % (0.0-2.0); EOSINOPHILS % 1.1 % (0.0-5.0); HEMATOCRIT. 23.4 % (42.0-52.0); HEMOGLOBIN. 7.9 g/dL (14.0-18.0); LYMPHOCYTES % 38.9 % (20.0-50.0); MEAN CORPUSCULAR HEMOGLOBIN 28.9 pg (28.0-32.0); MEAN CORPUSCULAR VOLUME 85.8 fL (80.0-94.0); MEAN PLATELET VOLUME 7.5 fl (7.4-10.4); MONOCYTES % 7.8 % (2.0-8.0); NEUTROPHILS % 51.5 % (40.0-76.0); PLATELET 193 x1000/uL (130-400); RED BLOOD CELL COUNT 2.73 mill/uL (4.7-6.1); RED CELL DISTRIBUTION WIDTH 17.2 % (11.6-14.6)
[2018-08-03 16:00] VITALS: BP 115/59
[2018-08-03 17:54] LABS: CLARITY URINE CLOUDY (CLEAR); COLOR URINE DARK YELLOW (YELLOW); KETONES URINE TRACE (NEGATIVE); LEUKOCYTE ESTERASE URINE 2+ (NEGATIVE); NITRITE URINE NEGATIVE (NEGATIVE); OCCULT BLOOD URINE 2+ (NEGATIVE); PROTEIN URINE 2+ (NEGATIVE); SPECIFIC GRAVITY URINE 1.019 (1.005-1.030); UROBILINOGEN URINE 0.2 E.U./dL (0.2-1.0)
[2018-08-03 20:00] VITALS: BP 97/49
[2018-08-04 00:31] VITALS: BP 109/52
[2018-08-04 04:00] VITALS: BP 156/69
[2018-08-04] MEDS: IPRATROPIUM/ALBUTEROL 0.5-3(2.5)MG/3ML NEB HHN SCH ×4 (04:15→20:00)
[2018-08-04] MEDS: MIDODRINE HCL 5MG TABLET PO SCH ×3 (05:07→21:18)
[2018-08-04] MEDS: DIPHENHYDRAMINE 50MG/ML VIAL IV PRN ×3 (05:09→17:43)
[2018-08-04] MEDS: LIDOCAINE HCL 4% CREAM 76GM TUBE TP SCH ×3 (05:10→21:21)
[2018-08-04] MEDS: BLOOD SUGAR DIAGNOSTIC STRIP TEST SCH ×4 (07:40→21:21)
[2018-08-04 08:10] VITALS: BP 125/46
[2018-08-04] MEDS: INSULIN LISPRO 100 UNITS/ML SUBCUT SCH ×4 (08:10→21:00)
[2018-08-04] MEDS: FERROUS SULFATE 325MG TABLET PO SCH ×3 (09:25→17:43)
[2018-08-04] MEDS: PREGABALIN 50 MG CAPSULE PO SCH (09:26)
[2018-08-04] MEDS: CALCIUM CARBONATE 1250MG TABLET (500MG ELEMENTAL CALCIUM) PO SCH (09:26)
[2018-08-04] MEDS: SEVELAMER CARBONATE 800 MG TABLET PO SCH ×3 (09:26→17:43)
[2018-08-04] MEDS: TAMSULOSIN HCL 0.4MG SR CAPSULE PO SCH (09:26)
[2018-08-04] MEDS: FOLIC ACID/VITAMIN B COMP W-C TABLET PO SCH (09:26)
[2018-08-04] MEDS: LEVETIRACETAM 500MG TABLET PO SCH ×2 (09:26→21:18)
[2018-08-04] MEDS: DOCUSATE SODIUM 100MG CAPSULE PO SCH (09:27)
[2018-08-04] MEDS: INSULIN GLARGINE UD 100 UNITS/ML SYR SUBCUT SCH (10:00)
[2018-08-04] MEDS: LIDOCAINE 5% PATCH TOP SCH (10:31)
[2018-08-04] MEDS: CLOTRIMAZOLE 1% CREAM 30GM TOP SCH ×2 (10:32→21:19)
[2018-08-04 11:41] LABS: BASOPHILS % 0.4 % (0.0-2.0); EOSINOPHILS % 0.5 % (0.0-5.0); HEMATOCRIT. 26.2 % (42.0-52.0); HEMOGLOBIN. 8.7 g/dL (14.0-18.0); LYMPHOCYTES % 20.3 % (20.0-50.0); MEAN CORPUSCULAR HEMOGLOBIN 28.6 pg (28.0-32.0); MEAN CORPUSCULAR VOLUME 86.5 fL (80.0-94.0); MONOCYTES % 7.1 % (2.0-8.0); NEUTROPHILS % 71.7 % (40.0-76.0); PLATELET 221 x1000/uL (130-400); RED BLOOD CELL COUNT 3.03 mill/uL (4.7-6.1); RED CELL DISTRIBUTION WIDTH 17.7 % (11.6-14.6)
[2018-08-04 12:00] VITALS: BP 112/57
[2018-08-04] MEDS: ACETAMINOPHEN 325MG TABLET PO PRN (14:35)
[2018-08-04 16:00] VITALS: BP 111/54
[2018-08-04 20:00] VITALS: BP 103/48
[2018-08-04] MEDS: EPOETIN ALFA 10000UNITS/ML VIAL SUBCUT SCH (21:18)
[2018-08-05] VITALS: BP 108/52
[2018-08-05] MEDS: DIPHENHYDRAMINE 50MG/ML VIAL IV PRN ×2 (01:36→15:34)
[2018-08-05 04:00] VITALS: BP 112/56
[2018-08-05] MEDS: IPRATROPIUM/ALBUTEROL 0.5-3(2.5)MG/3ML NEB HHN SCH ×6 (04:00→21:00)
[2018-08-05] MEDS: MIDODRINE HCL 5MG TABLET PO SCH ×3 (06:20→20:53)
[2018-08-05] MEDS: LIDOCAINE HCL 4% CREAM 76GM TUBE TP SCH ×3 (06:20→21:05)
[2018-08-05] MEDS: BLOOD SUGAR DIAGNOSTIC STRIP TEST SCH ×4 (06:39→20:43)
[2018-08-05] MEDS: INSULIN LISPRO 100 UNITS/ML SUBCUT SCH ×4 (08:10→20:43)
[2018-08-05] MEDS ORDERED: HYDROMORPHONE HCL/PF 2MG/ML CPJ IV NR (08:45)
[2018-08-05] MEDS: FOLIC ACID/VITAMIN B COMP W-C TABLET PO SCH (09:03)
[2018-08-05] MEDS: DOCUSATE SODIUM 250MG CAPSULE PO SCH (09:05)
[2018-08-05] MEDS: FERROUS SULFATE 325MG TABLET PO SCH ×3 (09:05→17:28)
[2018-08-05] MEDS: LEVETIRACETAM 500MG TABLET PO SCH ×2 (09:06→20:53)
[2018-08-05] MEDS: PREGABALIN 50 MG CAPSULE PO SCH (09:06)
[2018-08-05] MEDS: LIDOCAINE 5% PATCH TOP SCH (09:08)
[2018-08-05] MEDS: CLOTRIMAZOLE 1% CREAM 30GM TOP SCH ×2 (09:08→20:53)
[2018-08-05] MEDS: INSULIN GLARGINE UD 100 UNITS/ML SYR SUBCUT SCH (09:10)
[2018-08-05] MEDS: TAMSULOSIN HCL 0.4MG SR CAPSULE PO SCH (09:14)
[2018-08-05] MEDS: CALCIUM CARBONATE 1250MG TABLET (500MG ELEMENTAL CALCIUM) PO SCH (09:14)
[2018-08-05] MEDS: SEVELAMER CARBONATE 800 MG TABLET PO SCH ×4 (09:20→18:10)
[2018-08-05 12:00] VITALS: BP 98/52
[2018-08-05 12:53] LABS: BASOPHILS % 0.5 % (0.0-2.0); EOSINOPHILS % 0.8 % (0.0-5.0); HEMATOCRIT. 22.9 % (42.0-52.0); HEMOGLOBIN. 7.6 g/dL (14.0-18.0); LYMPHOCYTES % 30.9 % (20.0-50.0); MEAN CORPUSCULAR HEMOGLOBIN 28.6 pg (28.0-32.0); MEAN CORPUSCULAR VOLUME 85.7 fL (80.0-94.0); MEAN PLATELET VOLUME 8.6 fl (7.4-10.4); MONOCYTES % 6.7 % (2.0-8.0); NEUTROPHILS % 61.1 % (40.0-76.0); PLATELET 199 x1000/uL (130-400); RED BLOOD CELL COUNT 2.67 mill/uL (4.7-6.1)
[2018-08-05] MEDS ORDERED: SODIUM BICARBONATE 8.4% 1 MEQ/ML 50ML SYR IV NR (14:15)
[2018-08-05] MEDS ORDERED: INSULIN REGULAR (HUMULIN R) 300UNITS/3ML SUBCUT ONE (14:15)
[2018-08-05] MEDS ORDERED: INSULIN REGULAR (HUMULIN R) 300UNITS/3ML IV ONE (14:30)
[2018-08-05] MEDS: DEXTROSE 50% WATER 50ML SYRINGE IV NR ×2 (15:26→17:37)
[2018-08-05] MEDS: SODIUM POLYSTYRENE SULFONATE 15 G/60 ML BOT PO NR ×3 (15:30→20:53)
[2018-08-05] MEDS ORDERED: INSULIN REGULAR (HUMULIN R) UD 100 UNITS/ML SYR IV NR (15:30)
[2018-08-05 16:00] VITALS: BP 121/40
[2018-08-05 20:58] VITALS: BP 105/50
[2018-08-06] VITALS: BP 137/62
[2018-08-06] MEDS: IPRATROPIUM/ALBUTEROL 0.5-3(2.5)MG/3ML NEB HHN SCH ×6 (01:00→20:00)
[2018-08-06 04:00] VITALS: BP 124/53
[2018-08-06] MEDS: MIDODRINE HCL 5MG TABLET PO SCH ×4 (06:00→20:44)
[2018-08-06] MEDS: LIDOCAINE HCL 4% CREAM 76GM TUBE TP SCH ×3 (06:24→20:44)
[2018-08-06] MEDS: BLOOD SUGAR DIAGNOSTIC STRIP TEST SCH ×4 (07:40→20:22)
[2018-08-06 08:00] VITALS: BP 91/41
[2018-08-06] MEDS: INSULIN LISPRO 100 UNITS/ML SUBCUT SCH ×4 (08:10→20:22)
[2018-08-06] MEDS: SEVELAMER CARBONATE 800 MG TABLET PO SCH ×3 (08:51→17:55)
[2018-08-06] MEDS: DOCUSATE SODIUM 250MG CAPSULE PO SCH (08:51)
[2018-08-06] MEDS: FOLIC ACID/VITAMIN B COMP W-C TABLET PO SCH (08:52)
[2018-08-06] MEDS: PREGABALIN 50 MG CAPSULE PO SCH (08:52)
[2018-08-06] MEDS: FERROUS SULFATE 325MG TABLET PO SCH ×3 (08:52→17:55)
[2018-08-06] MEDS: CLOTRIMAZOLE 1% CREAM 30GM TOP SCH ×2 (08:53→20:44)
[2018-08-06] MEDS: LEVETIRACETAM 500MG TABLET PO SCH ×2 (08:53→20:44)
[2018-08-06] MEDS: TAMSULOSIN HCL 0.4MG SR CAPSULE PO SCH (08:58)
[2018-08-06] MEDS: CALCIUM CARBONATE 1250MG TABLET (500MG ELEMENTAL CALCIUM) PO SCH (08:59)
[2018-08-06] MEDS: LIDOCAINE 5% PATCH TOP SCH (09:00)
[2018-08-06 09:25] LABS: BASOPHILS % 0.3 % (0.0-2.0); EOSINOPHILS % 0.3 % (0.0-5.0); HEMATOCRIT. 26.8 % (42.0-52.0); HEMOGLOBIN. 8.5 g/dL (14.0-18.0); MEAN CORPUSCULAR HEMOGLOBIN 28.2 pg (28.0-32.0); MEAN CORPUSCULAR VOLUME 88.6 fL (80.0-94.0); MEAN PLATELET VOLUME 9.1 fl (7.4-10.4); MONOCYTES % 6.2 % (2.0-8.0); NEUTROPHILS % 58.2 % (40.0-76.0); PLATELET 179 x1000/uL (130-400); RED BLOOD CELL COUNT 3.02 mill/uL (4.7-6.1); RED CELL DISTRIBUTION WIDTH 18.4 % (11.6-14.6)
[2018-08-06] MEDS: INSULIN GLARGINE UD 100 UNITS/ML SYR SUBCUT SCH (10:00)
[2018-08-06 12:00] VITALS: BP 102/50
[2018-08-06 16:00] VITALS: BP 99/49
[2018-08-06 20:19] VITALS: BP 103/53
[2018-08-06] MEDS: EPOETIN ALFA 10000UNITS/ML VIAL SUBCUT SCH (20:44)
[2018-08-07] VITALS (8 sets, daily range): BP systolic 87–112; BP diastolic 25–60
[2018-08-07] MEDS: IPRATROPIUM/ALBUTEROL 0.5-3(2.5)MG/3ML NEB HHN SCH ×7 (03:33→23:45)
[2018-08-07] MEDS: LIDOCAINE HCL 4% CREAM 76GM TUBE TP SCH ×2 (06:00→14:00)
[2018-08-07] MEDS: BLOOD SUGAR DIAGNOSTIC STRIP TEST SCH ×4 (07:00→21:00)
[2018-08-07] MEDS: MIDODRINE HCL 5MG TABLET PO SCH ×2 (07:01→14:00)
[2018-08-07] MEDS: INSULIN LISPRO 100 UNITS/ML SUBCUT SCH ×4 (07:35→21:00)
[2018-08-07 08:05] LABS: BASOPHILS % 0.4 % (0.0-2.0); EOSINOPHILS % 0.1 % (0.0-5.0); LYMPHOCYTES % 29.7 % (20.0-50.0); MEAN CORPUSCULAR HEMOGLOBIN 28.5 pg (28.0-32.0); MEAN CORPUSCULAR VOLUME 85.1 fL (80.0-94.0); MEAN PLATELET VOLUME 9.3 fl (7.4-10.4); MONOCYTES % 5.8 % (2.0-8.0); PLATELET 181 x1000/uL (130-400); RED BLOOD CELL COUNT 2.43 mill/uL (4.7-6.1); RED CELL DISTRIBUTION WIDTH 18.5 % (11.6-14.6)
[2018-08-07] MEDS: FERROUS SULFATE 325MG TABLET PO SCH ×3 (08:10→18:10)
[2018-08-07] MEDS: SEVELAMER CARBONATE 800 MG TABLET PO SCH ×3 (08:10→18:10)
[2018-08-07 08:15] LABS: HEMOGLOBIN. 6.9 g/dL (14.0-18.0)
[2018-08-07 08:16] LABS: HEMATOCRIT. 20.7 % (42.0-52.0)
[2018-08-07] MEDS: DOCUSATE SODIUM 250MG CAPSULE PO SCH (09:00)
[2018-08-07] MEDS: TAMSULOSIN HCL 0.4MG SR CAPSULE PO SCH (09:00)
[2018-08-07] MEDS: FOLIC ACID/VITAMIN B COMP W-C TABLET PO SCH (09:00)
[2018-08-07] MEDS: CLOTRIMAZOLE 1% CREAM 30GM TOP SCH (09:00)
[2018-08-07] MEDS: PREGABALIN 50 MG CAPSULE PO SCH (09:00)
[2018-08-07] MEDS: LEVETIRACETAM 500MG TABLET PO SCH (09:00)
[2018-08-07] MEDS: CALCIUM CARBONATE 1250MG TABLET (500MG ELEMENTAL CALCIUM) PO SCH (09:00)
[2018-08-07] MEDS: LIDOCAINE 5% PATCH TOP SCH (09:00)
[2018-08-07] MEDS ORDERED: INSULIN REGULAR (HUMULIN R) UD 100 UNITS/ML SYR IV NR (09:41)
[2018-08-07] MEDS ORDERED: CALCIUM GLUCONATE 1,000 MG in DEXT 5% WATER 90 ML IV NR (09:45)
[2018-08-07] MEDS ORDERED: DEXTROSE 50% WATER 50ML SYRINGE IV NR (09:49)
[2018-08-07] MEDS ORDERED: SODIUM POLYSTYRENE SULFONATE 15 G/60 ML BOT PO NR (09:50)
[2018-08-07] MEDS ORDERED: SODIUM BICARBONATE 8.4% 1 MEQ/ML 50ML SYR IV NR (09:50)
[2018-08-07] MEDS: INSULIN GLARGINE UD 100 UNITS/ML SYR SUBCUT SCH (10:00)
[2018-08-08] VITALS (7 sets, daily range): BP systolic 82–117; BP diastolic 49–62
[2018-08-08] MEDS: ACETAMINOPHEN 325MG TABLET PO PRN (00:50)
[2018-08-08] MEDS: LEVETIRACETAM 500MG TABLET PO SCH ×3 (00:50→21:57)
[2018-08-08] MEDS: MIDODRINE HCL 5MG TABLET PO SCH ×4 (01:03→21:57)
[2018-08-08] MEDS: IPRATROPIUM/ALBUTEROL 0.5-3(2.5)MG/3ML NEB HHN SCH ×5 (02:45→20:17)
[2018-08-08] MEDS: CLOTRIMAZOLE 1% CREAM 30GM TOP SCH ×3 (05:52→21:58)
[2018-08-08] MEDS: LIDOCAINE HCL 4% CREAM 76GM TUBE TP SCH ×4 (05:52→21:58)
[2018-08-08] MEDS: BLOOD SUGAR DIAGNOSTIC STRIP TEST SCH ×4 (07:40→21:52)
[2018-08-08] MEDS: SEVELAMER CARBONATE 800 MG TABLET PO SCH ×4 (08:10→18:10)
[2018-08-08] MEDS: FERROUS SULFATE 325MG TABLET PO SCH ×4 (08:10→18:10)
[2018-08-08] MEDS: INSULIN LISPRO 100 UNITS/ML SUBCUT SCH ×4 (08:52→22:06)
[2018-08-08] MEDS: TAMSULOSIN HCL 0.4MG SR CAPSULE PO SCH (09:00)
[2018-08-08] MEDS: FOLIC ACID/VITAMIN B COMP W-C TABLET PO SCH (09:00)
[2018-08-08] MEDS: DOCUSATE SODIUM 250MG CAPSULE PO SCH (09:00)
[2018-08-08] MEDS: CALCIUM CARBONATE 1250MG TABLET (500MG ELEMENTAL CALCIUM) PO SCH (09:00)
[2018-08-08] MEDS: PREGABALIN 50 MG CAPSULE PO SCH (09:40)
[2018-08-08] MEDS: INSULIN GLARGINE UD 100 UNITS/ML SYR SUBCUT SCH (12:43)
[2018-08-08 12:48] LABS: BASOPHILS % 0.2 % (0.0-2.0); EOSINOPHILS % 0.4 % (0.0-5.0); HEMATOCRIT. 29.7 % (42.0-52.0); HEMOGLOBIN. 9.7 g/dL (14.0-18.0); MEAN CORPUSCULAR HEMOGLOBIN 27.9 pg (28.0-32.0); MEAN CORPUSCULAR VOLUME 85.4 fL (80.0-94.0); MONOCYTES % 7.7 % (2.0-8.0); NEUTROPHILS % 73.7 % (40.0-76.0); PLATELET 157 x1000/uL (130-400); RED BLOOD CELL COUNT 3.48 mill/uL (4.7-6.1); RED CELL DISTRIBUTION WIDTH 17.9 % (11.6-14.6)
[2018-08-08] MEDS: LIDOCAINE 5% PATCH TOP SCH (13:26)
[2018-08-08] MEDS ORDERED: SODIUM POLYSTYRENE SULFONATE 15 G/60 ML BOT PO NR (14:30)
[2018-08-08 14:56] LABS: BG BASE EXCESS -5.7 mmol/L (-2.0-2.0); BG CARBOXYHEMOGLOBIN 0.4 % (0.5-1.5); BG DEOXYHEMOGLOBIN 6.8 % (0.0-5.0); BG FRACTION INSPIRED OXYGEN 21; BG HCO3 ACT 17.6 mmol/L (22.0-26.0); BG METHEMOGLOBIN 0.3 % (0.0-1.5); BG OXYGEN SATURATION 93.2 % (92.0-98.5); BG OXYHEMOGLOBIN 92.5 % (94.0-97.0); BG PCO2 27.3 mmHg (35.0-45.0); BG PH 7.427 (7.350-7.450); BG PO2 70.3 mmHg (75.0-100.0); BG SAMPLE SITE RIGHT RADIAL; BG TOTAL HEMOGLOBIN 9.8 g/dL (12.0-18.0); BG VENT MODE ROOM AIR
[2018-08-08] MEDS: ENOXAPARIN 100MG/ML SYR SUBCUT SCH (16:02)
[2018-08-08] MEDS ORDERED: DIATR MEGLU/DIATRIZOATE SOLN 30ML PO NR (17:00)
[2018-08-08] MEDS ORDERED: ENOXAPARIN 30MG/0.3ML SYR SUBCUT SCH (18:00)
[2018-08-08] MEDS ORDERED: MEROPENEM 500 MG in SODIUM CHLORIDE 0.9% 50 ML IV SCH (18:00)
[2018-08-08] MEDS: LINEZOLID 600MG TABLET PO SCH (18:00)
[2018-08-09] VITALS (10 sets, daily range): BP systolic 76–103; BP diastolic 33–65
[2018-08-09] MEDS: IPRATROPIUM/ALBUTEROL 0.5-3(2.5)MG/3ML NEB HHN SCH ×6 (00:57→23:28)
[2018-08-09] MEDS: MIDODRINE HCL 5MG TABLET PO SCH ×3 (05:49→22:36)
[2018-08-09] MEDS: LINEZOLID 600MG TABLET PO SCH (05:50)
[2018-08-09] MEDS: LIDOCAINE HCL 4% CREAM 76GM TUBE TP SCH ×3 (06:21→22:36)
[2018-08-09 06:59] LABS: CLARITY URINE CLOUDY (CLEAR); COLOR URINE DARK YELLOW (YELLOW); KETONES URINE NEGATIVE (NEGATIVE); LEUKOCYTE ESTERASE URINE 2+ (NEGATIVE); NITRITE URINE NEGATIVE (NEGATIVE); OCCULT BLOOD URINE 2+ (NEGATIVE); PH URINE 8.5 (4.5-8.0); PROTEIN URINE 3+ (NEGATIVE); SPECIFIC GRAVITY URINE 1.018 (1.005-1.030); UROBILINOGEN URINE 0.2 E.U./dL (0.2-1.0)
[2018-08-09 07:17] LABS: BASOPHILS % 0.3 % (0.0-2.0); HEMATOCRIT. 23.2 % (42.0-52.0); HEMOGLOBIN. 7.8 g/dL (14.0-18.0); LYMPHOCYTES % 16.5 % (20.0-50.0); MEAN CORPUSCULAR HEMOGLOBIN 28.7 pg (28.0-32.0); MEAN CORPUSCULAR VOLUME 84.9 fL (80.0-94.0); MEAN PLATELET VOLUME 9.8 fl (7.4-10.4); MONOCYTES % 5.4 % (2.0-8.0); NEUTROPHILS % 77.8 % (40.0-76.0); PLATELET 158 x1000/uL (130-400); RED BLOOD CELL COUNT 2.73 mill/uL (4.7-6.1); RED CELL DISTRIBUTION WIDTH 18.3 % (11.6-14.6)
[2018-08-09] MEDS: BLOOD SUGAR DIAGNOSTIC STRIP TEST SCH ×4 (07:50→21:14)
[2018-08-09] MEDS: INSULIN LISPRO 100 UNITS/ML SUBCUT SCH ×4 (07:51→21:25)
[2018-08-09] MEDS: SEVELAMER CARBONATE 800 MG TABLET PO SCH ×3 (07:51→18:00)
[2018-08-09] MEDS: PREGABALIN 50 MG CAPSULE PO SCH (07:51)
[2018-08-09] MEDS: TAMSULOSIN HCL 0.4MG SR CAPSULE PO SCH (07:51)
[2018-08-09] MEDS: DOCUSATE SODIUM 250MG CAPSULE PO SCH (07:51)
[2018-08-09] MEDS: FOLIC ACID/VITAMIN B COMP W-C TABLET PO SCH (07:51)
[2018-08-09] MEDS: FERROUS SULFATE 325MG TABLET PO SCH ×3 (07:51→18:46)
[2018-08-09] MEDS: LEVETIRACETAM 500MG TABLET PO SCH ×2 (07:51→21:22)
[2018-08-09] MEDS: CALCIUM CARBONATE 1250MG TABLET (500MG ELEMENTAL CALCIUM) PO SCH (07:52)
[2018-08-09 07:54] LABS: *AMPHETAMINES SCREEN URINE NEGATIVE (NEGATIVE); *BARBITURATES SCREEN URINE NEGATIVE (NEGATIVE); *COCAINE SCREEN URINE NEGATIVE (NEGATIVE)
[2018-08-09 07:55] LABS: *BENZODIAZEPINES SCREEN URINE NEGATIVE (NEGATIVE); CANNABINOID URINE SCREEN NEGATIVE (NEGATIVE); METHADONE URINE SCREEN NEGATIVE (NEGATIVE); OPIATES URINE SCREEN PRESUMTIVE POSITIVE (NEGATIVE); PHENCYCLIDINE URINE SCREEN NEGATIVE (NEGATIVE)
[2018-08-09] MEDS: ACETAMINOPHEN 650MG SUPP PR PRN (08:28)
[2018-08-09] MEDS: LIDOCAINE 5% PATCH TOP SCH (08:29)
[2018-08-09] MEDS: CLOTRIMAZOLE 1% CREAM 30GM TOP SCH ×2 (08:29→21:22)
[2018-08-09] MEDS: INSULIN GLARGINE UD 100 UNITS/ML SYR SUBCUT SCH (12:06)
[2018-08-09] MEDS ORDERED: SODIUM CHLORIDE 0.9% 100 ML IV ONE (12:45)
[2018-08-09] MEDS ORDERED: SODIUM CHLORIDE 0.9% 200 ML IV NR (12:49)
[2018-08-09] MEDS ORDERED: HEPARIN 100 UNITS/1 ML VIAL IVF PRN (13:30)
[2018-08-09] MEDS: ENOXAPARIN 100MG/ML SYR SUBCUT SCH (14:14)
[2018-08-09] MEDS ORDERED: SODIUM CHLORIDE 0.9% 250 ML IV ONE (14:15)
[2018-08-09] MEDS: DEXT 5%/0.9% NACL 1,000 ML IV SCH (14:15)
[2018-08-09 15:16] LABS: BASOPHILS % 0.2 % (0.0-2.0); HEMATOCRIT. 22.9 % (42.0-52.0); HEMOGLOBIN. 7.4 g/dL (14.0-18.0); LYMPHOCYTES % 9.8 % (20.0-50.0); MEAN CORPUSCULAR HEMOGLOBIN 28.3 pg (28.0-32.0); MEAN CORPUSCULAR VOLUME 87.1 fL (80.0-94.0); MEAN PLATELET VOLUME 9.9 fl (7.4-10.4); MONOCYTES % 4.4 % (2.0-8.0); NEUTROPHILS % 85.6 % (40.0-76.0); PLATELET 169 x1000/uL (130-400); RED BLOOD CELL COUNT 2.63 mill/uL (4.7-6.1); RED CELL DISTRIBUTION WIDTH 17.8 % (11.6-14.6)
[2018-08-09] MEDS: MEROPENEM 500 MG in SODIUM CHLORIDE 0.9% 50 ML IV SCH (18:00)
[2018-08-09] MEDS ORDERED: LINEZOLID 600 MG PREMIX 300 ML IV SCH (20:00)
[2018-08-10] VITALS (19 sets, daily range): BP systolic 74–133; BP diastolic 35–96
[2018-08-10] MEDS: IPRATROPIUM/ALBUTEROL 0.5-3(2.5)MG/3ML NEB HHN SCH ×4 (02:29→20:48)
[2018-08-10] MEDS: MIDODRINE HCL 5MG TABLET PO SCH ×3 (07:31→21:20)
[2018-08-10] MEDS: LIDOCAINE HCL 4% CREAM 76GM TUBE TP SCH ×3 (07:32→21:21)
[2018-08-10] MEDS: DEXT 5%/0.9% NACL 1,000 ML IV SCH ×2 (07:32→17:29)
[2018-08-10 07:49] LABS: BASOPHILS % 0.2 % (0.0-2.0); HEMATOCRIT. 25.1 % (42.0-52.0); HEMOGLOBIN. 8.2 g/dL (14.0-18.0); LYMPHOCYTES % 11.6 % (20.0-50.0); MEAN CORPUSCULAR HEMOGLOBIN 27.9 pg (28.0-32.0); MEAN PLATELET VOLUME 9.8 fl (7.4-10.4); MONOCYTES % 5.9 % (2.0-8.0); NEUTROPHILS % 82.3 % (40.0-76.0); PLATELET 165 x1000/uL (130-400); RED BLOOD CELL COUNT 2.92 mill/uL (4.7-6.1); RED CELL DISTRIBUTION WIDTH 17.9 % (11.6-14.6)
[2018-08-10] MEDS: INSULIN LISPRO 100 UNITS/ML SUBCUT SCH ×4 (08:00→21:23)
[2018-08-10] MEDS: SEVELAMER CARBONATE 800 MG TABLET PO SCH ×3 (08:00→18:07)
[2018-08-10] MEDS: BLOOD SUGAR DIAGNOSTIC STRIP TEST SCH ×4 (08:01→20:53)
[2018-08-10] MEDS: DOCUSATE SODIUM 250MG CAPSULE PO SCH (08:02)
[2018-08-10] MEDS: FERROUS SULFATE 325MG TABLET PO SCH ×3 (08:03→18:07)
[2018-08-10] MEDS: ACETAMINOPHEN 325MG TABLET PO PRN (08:04)
[2018-08-10] MEDS ORDERED: SODIUM BICARBONATE 4% (2.4MEQ) 5ML VIAL IV ONE (08:12)
[2018-08-10] MEDS ORDERED: LIDOCAINE HCL 1% 20ML VIAL (Pyxis) INJ ONE (08:12)
[2018-08-10] MEDS ORDERED: IOHEXOL-300 100 ML BOTTLE ONE (08:13)
[2018-08-10] MEDS: CLOTRIMAZOLE 1% CREAM 30GM TOP SCH ×2 (09:00→21:20)
[2018-08-10] MEDS: TAMSULOSIN HCL 0.4MG SR CAPSULE PO SCH (09:00)
[2018-08-10] MEDS: FOLIC ACID/VITAMIN B COMP W-C TABLET PO SCH (09:00)
[2018-08-10] MEDS: PREGABALIN 50 MG CAPSULE PO SCH (09:00)
[2018-08-10] MEDS: CALCIUM CARBONATE 1250MG TABLET (500MG ELEMENTAL CALCIUM) PO SCH (09:00)
[2018-08-10] MEDS: LEVETIRACETAM 500MG TABLET PO SCH ×2 (10:39→21:19)
[2018-08-10] MEDS: INSULIN GLARGINE UD 100 UNITS/ML SYR SUBCUT SCH (10:47)
[2018-08-10] MEDS: LIDOCAINE 5% PATCH TOP SCH (11:01)
[2018-08-10] MEDS ORDERED: LEVETIRACETAM 500MG in SODIUM CHLORIDE 0.9% 100ML IV NR (11:30)
[2018-08-10] MEDS: ACETAMINOPHEN 650MG SUPP PR PRN (12:38)
[2018-08-10] MEDS ORDERED: LIDOCAINE HCL/EPINEPHRINE 1%-EPI 1:100,000 20 ML VIAL IJ SCH (13:00)
[2018-08-10] MEDS ORDERED: SODIUM CHLORIDE 0.9% 250 ML IV ONE ×2 (13:15→15:15)
[2018-08-10] MEDS ORDERED: ALBUMIN HUMAN 25GM/100ML (25%) IV SCH (14:00)
[2018-08-10] MEDS: ENOXAPARIN 100MG/ML SYR SUBCUT SCH (16:07)
[2018-08-10] MEDS: SODIUM HYPOCHLORITE 0.125% 473ML SOLUTION TOP SCH ×2 (17:28→21:22)
[2018-08-10] MEDS: MEROPENEM 500 MG in SODIUM CHLORIDE 0.9% 50 ML IV SCH (18:09)
[2018-08-10] MEDS: LINEZOLID 600 MG PREMIX 300 ML IV SCH (21:21)
[2018-08-11] VITALS (16 sets, daily range): BP systolic 88–132; BP diastolic 46–75
[2018-08-11] MEDS: IPRATROPIUM/ALBUTEROL 0.5-3(2.5)MG/3ML NEB HHN SCH ×6 (00:42→20:00)
[2018-08-11] MEDS: ACETAMINOPHEN 325MG TABLET PO PRN ×2 (01:10→19:59)
[2018-08-11] MEDS: DEXT 5%/0.9% NACL 1,000 ML IV SCH ×3 (01:32→22:37)
[2018-08-11] MEDS: ACETAMINOPHEN 650MG SUPP PR PRN (04:51)
[2018-08-11] MEDS: MIDODRINE HCL 5MG TABLET PO SCH ×3 (05:54→23:12)
[2018-08-11] MEDS: LIDOCAINE HCL 4% CREAM 76GM TUBE TP SCH ×3 (05:56→22:00)
[2018-08-11] MEDS: BLOOD SUGAR DIAGNOSTIC STRIP TEST SCH ×4 (07:30→21:03)
[2018-08-11] MEDS: PREGABALIN 50 MG CAPSULE PO SCH (09:00)
[2018-08-11] MEDS: DOCUSATE SODIUM 250MG CAPSULE PO SCH (09:00)
[2018-08-11] MEDS: LIDOCAINE 5% PATCH TOP SCH (09:14)
[2018-08-11] MEDS: LINEZOLID 600 MG PREMIX 300 ML IV SCH (09:15)
[2018-08-11] MEDS: CALCIUM CARBONATE 1250MG TABLET (500MG ELEMENTAL CALCIUM) PO SCH (09:16)
[2018-08-11] MEDS: FOLIC ACID/VITAMIN B COMP W-C TABLET PO SCH (09:16)
[2018-08-11] MEDS: FERROUS SULFATE 325MG TABLET PO SCH ×3 (09:16→17:26)
[2018-08-11] MEDS: SEVELAMER CARBONATE 800 MG TABLET PO SCH ×3 (09:16→17:26)
[2018-08-11] MEDS: LACTOBACILLUS GG CAPSULE PO SCH (09:16)
[2018-08-11] MEDS: TAMSULOSIN HCL 0.4MG SR CAPSULE PO SCH (09:17)
[2018-08-11] MEDS: LEVETIRACETAM 500MG TABLET PO SCH ×2 (09:17→21:03)
[2018-08-11] MEDS: SODIUM HYPOCHLORITE 0.125% 473ML SOLUTION TOP SCH ×2 (09:17→22:38)
[2018-08-11] MEDS: CLOTRIMAZOLE 1% CREAM 30GM TOP SCH ×2 (09:17→22:39)
[2018-08-11] MEDS: INSULIN LISPRO 100 UNITS/ML SUBCUT SCH ×4 (09:24→21:11)
[2018-08-11] MEDS: INSULIN GLARGINE UD 100 UNITS/ML SYR SUBCUT SCH (11:18)
[2018-08-11 12:55] LABS: BASOPHILS % 0.3 % (0.0-2.0); LYMPHOCYTES % 9.8 % (20.0-50.0); MEAN CORPUSCULAR HEMOGLOBIN 28.4 pg (28.0-32.0); MEAN CORPUSCULAR VOLUME 84.2 fL (80.0-94.0); MEAN PLATELET VOLUME 8.9 fl (7.4-10.4); MONOCYTES % 2.9 % (2.0-8.0); PLATELET 120 x1000/uL (130-400); RED CELL DISTRIBUTION WIDTH 18.3 % (11.6-14.6)
[2018-08-11 13:10] LABS: HEMATOCRIT. 20.2 % (42.0-52.0); HEMOGLOBIN. 6.8 g/dL (14.0-18.0)
[2018-08-11] MEDS: ENOXAPARIN 100MG/ML SYR SUBCUT SCH (14:30)
[2018-08-11] MEDS: DAPTOMYCIN 375 MG in SODIUM CHLORIDE 0.9% 50 ML IV SCH (17:26)
[2018-08-11] MEDS: MEROPENEM 500 MG in SODIUM CHLORIDE 0.9% 50 ML IV SCH (18:03)
[2018-08-12] VITALS (16 sets, daily range): BP systolic 96–130; BP diastolic 50–95
[2018-08-12 03:44] LABS: BASOPHILS % 0.2 % (0.0-2.0); HEMATOCRIT. 30.2 % (42.0-52.0); HEMOGLOBIN. 10.1 g/dL (14.0-18.0); LYMPHOCYTES % 9.7 % (20.0-50.0); MEAN CORPUSCULAR HEMOGLOBIN 28.6 pg (28.0-32.0); MEAN CORPUSCULAR VOLUME 85.8 fL (80.0-94.0); MEAN PLATELET VOLUME 9.3 fl (7.4-10.4); MONOCYTES % 2.6 % (2.0-8.0); NEUTROPHILS % 87.5 % (40.0-76.0); PLATELET 114 x1000/uL (130-400); RED BLOOD CELL COUNT 3.51 mill/uL (4.7-6.1); RED CELL DISTRIBUTION WIDTH 16.6 % (11.6-14.6)
[2018-08-12 03:55] LABS: INR 2.5; PROTHROMBIN TIME 24.6 sec (9.1-11.1)
[2018-08-12] MEDS: IPRATROPIUM/ALBUTEROL 0.5-3(2.5)MG/3ML NEB HHN SCH ×6 (04:00→20:50)
[2018-08-12] MEDS: LIDOCAINE HCL 4% CREAM 76GM TUBE TP SCH ×3 (05:23→21:57)
[2018-08-12] MEDS: MIDODRINE HCL 5MG TABLET PO SCH ×3 (05:24→21:55)
[2018-08-12] MEDS ORDERED: POTASSIUM CHLORIDE 20MEQ TABLET SR PO SCH (07:45)
[2018-08-12] MEDS: CALCIUM CARBONATE 1250MG TABLET (500MG ELEMENTAL CALCIUM) PO SCH (08:27)
[2018-08-12] MEDS: DOCUSATE SODIUM 250MG CAPSULE PO SCH (08:27)
[2018-08-12] MEDS: FOLIC ACID/VITAMIN B COMP W-C TABLET PO SCH (08:27)
[2018-08-12] MEDS: LACTOBACILLUS GG CAPSULE PO SCH (08:27)
[2018-08-12] MEDS: FERROUS SULFATE 325MG TABLET PO SCH ×3 (08:27→18:15)
[2018-08-12] MEDS: PREGABALIN 50 MG CAPSULE PO SCH (08:27)
[2018-08-12] MEDS: TAMSULOSIN HCL 0.4MG SR CAPSULE PO SCH (08:27)
[2018-08-12] MEDS: LEVETIRACETAM 500MG TABLET PO SCH ×2 (08:28→21:55)
[2018-08-12] MEDS: SEVELAMER CARBONATE 800 MG TABLET PO SCH ×3 (08:29→18:20)
[2018-08-12] MEDS: BLOOD SUGAR DIAGNOSTIC STRIP TEST SCH ×4 (08:29→21:41)
[2018-08-12] MEDS: DEXT 5%/0.9% NACL 1,000 ML IV SCH ×2 (08:29→18:20)
[2018-08-12] MEDS: INSULIN LISPRO 100 UNITS/ML SUBCUT SCH ×4 (08:30→21:59)
[2018-08-12] MEDS: SODIUM HYPOCHLORITE 0.125% 473ML SOLUTION TOP SCH ×2 (08:31→21:56)
[2018-08-12] MEDS: CLOTRIMAZOLE 1% CREAM 30GM TOP SCH ×2 (08:31→21:58)
[2018-08-12] MEDS: LIDOCAINE 5% PATCH TOP SCH (08:34)
[2018-08-12 09:06] LABS: IMMUNOGLOBULIN A 452 mg/dL (90-386); IMMUNOGLOBULIN G 1741 mg/dL (700-1600); IMMUNOGLOBULIN M 97 mg/dL (20-172)
[2018-08-12] MEDS: INSULIN GLARGINE UD 100 UNITS/ML SYR SUBCUT SCH (10:30)
[2018-08-12] MEDS ORDERED: KCL 20MEQ/100ML PREMIX 100 ML IV SCH (11:30)
[2018-08-12] MEDS: ENOXAPARIN 100MG/ML SYR SUBCUT SCH (14:45)
[2018-08-12] MEDS: ONDANSETRON HCL 4MG/2ML INJ IV PRN (16:18)
[2018-08-12] MEDS: MEROPENEM 500 MG in SODIUM CHLORIDE 0.9% 50 ML IV SCH (18:15)
[2018-08-13] VITALS (12 sets, daily range): BP systolic 92–135; BP diastolic 36–74
[2018-08-13] MEDS: IPRATROPIUM/ALBUTEROL 0.5-3(2.5)MG/3ML NEB HHN SCH ×7 (00:35→23:58)
[2018-08-13] MEDS: DEXT 5%/0.9% NACL 1,000 ML IV SCH ×2 (05:32→18:32)
[2018-08-13] MEDS: LIDOCAINE HCL 4% CREAM 76GM TUBE TP SCH ×3 (06:15→21:49)
[2018-08-13] MEDS: MIDODRINE HCL 5MG TABLET PO SCH ×3 (06:15→21:52)
[2018-08-13 07:24] LABS: BASOPHILS % 0.3 % (0.0-2.0); HEMATOCRIT. 26.5 % (42.0-52.0); HEMOGLOBIN. 8.8 g/dL (14.0-18.0); LYMPHOCYTES % 14.8 % (20.0-50.0); MEAN CORPUSCULAR HEMOGLOBIN 28.3 pg (28.0-32.0); MEAN PLATELET VOLUME 9.3 fl (7.4-10.4); MONOCYTES % 4.9 % (2.0-8.0); PLATELET 97 x1000/uL (130-400); RED BLOOD CELL COUNT 3.09 mill/uL (4.7-6.1); RED CELL DISTRIBUTION WIDTH 17.2 % (11.6-14.6)
[2018-08-13 07:32] LABS: INR 2.4; PROTHROMBIN TIME 23.7 sec (9.1-11.1)
[2018-08-13] MEDS: BLOOD SUGAR DIAGNOSTIC STRIP TEST SCH ×4 (07:56→21:50)
[2018-08-13] MEDS: FERROUS SULFATE 325MG TABLET PO SCH ×3 (08:00→18:00)
[2018-08-13] MEDS: DOCUSATE SODIUM 250MG CAPSULE PO SCH (08:19)
[2018-08-13] MEDS: SEVELAMER CARBONATE 800 MG TABLET PO SCH ×3 (08:57→18:00)
[2018-08-13] MEDS: LEVETIRACETAM 500MG TABLET PO SCH ×2 (08:57→21:52)
[2018-08-13] MEDS: PREGABALIN 50 MG CAPSULE PO SCH (08:57)
[2018-08-13] MEDS: LACTOBACILLUS GG CAPSULE PO SCH ×2 (09:00→09:20)
[2018-08-13] MEDS: CALCIUM CARBONATE 1250MG TABLET (500MG ELEMENTAL CALCIUM) PO SCH (09:00)
[2018-08-13] MEDS: FOLIC ACID/VITAMIN B COMP W-C TABLET PO SCH (09:00)
[2018-08-13] MEDS: TAMSULOSIN HCL 0.4MG SR CAPSULE PO SCH (09:00)
[2018-08-13] MEDS: INSULIN LISPRO 100 UNITS/ML SUBCUT SCH ×4 (09:02→21:53)
[2018-08-13] MEDS: CLOTRIMAZOLE 1% CREAM 30GM TOP SCH ×2 (09:05→21:49)
[2018-08-13] MEDS: SODIUM HYPOCHLORITE 0.125% 473ML SOLUTION TOP SCH ×2 (09:06→21:00)
[2018-08-13] MEDS: LIDOCAINE 5% PATCH TOP SCH (09:10)
[2018-08-13] MEDS ORDERED: POTASSIUM CHLORIDE 20MEQ TABLET SR PO SCH (10:00)
[2018-08-13] MEDS: ONDANSETRON HCL 4MG/2ML INJ IV PRN (11:07)
[2018-08-13] MEDS: INSULIN GLARGINE UD 100 UNITS/ML SYR SUBCUT SCH (11:08)
[2018-08-13] MEDS: DAPTOMYCIN 375 MG in SODIUM CHLORIDE 0.9% 50 ML IV SCH (17:43)
[2018-08-13] MEDS: MEROPENEM 500 MG in SODIUM CHLORIDE 0.9% 50 ML IV SCH (18:34)
[2018-08-14] VITALS (12 sets, daily range): BP systolic 96–125; BP diastolic 49–73
[2018-08-14] MEDS: MIDODRINE HCL 5MG TABLET PO SCH ×3 (05:43→21:13)
[2018-08-14] MEDS: ACETAMINOPHEN 650MG SUPP PR PRN (05:44)
[2018-08-14] MEDS: LIDOCAINE HCL 4% CREAM 76GM TUBE TP SCH ×3 (05:46→21:15)
[2018-08-14] MEDS: DEXT 5%/0.9% NACL 1,000 ML IV SCH ×3 (06:01→21:04)
[2018-08-14] MEDS ORDERED: DEXTROSE 50% WATER 50ML SYRINGE IV PRN (07:45)
[2018-08-14] MEDS: SEVELAMER CARBONATE 800 MG TABLET PO SCH ×3 (08:00→18:00)
[2018-08-14] MEDS: FERROUS SULFATE 325MG TABLET PO SCH ×3 (08:00→18:14)
[2018-08-14] MEDS: BLOOD SUGAR DIAGNOSTIC STRIP TEST SCH ×4 (08:01→20:40)
[2018-08-14 08:40] LABS: HEMATOCRIT. 22.4 % (42.0-52.0); HEMOGLOBIN. 7.6 g/dL (14.0-18.0); MEAN CORPUSCULAR HEMOGLOBIN 29.2 pg (28.0-32.0); MEAN CORPUSCULAR VOLUME 86.4 fL (80.0-94.0); MEAN PLATELET VOLUME 9.1 fl (7.4-10.4); PLATELET 88 x1000/uL (130-400); RED BLOOD CELL COUNT 2.59 mill/uL (4.7-6.1); RED CELL DISTRIBUTION WIDTH 16.8 % (11.6-14.6)
[2018-08-14 08:43] LABS: INR 2.6; PROTHROMBIN TIME 26.2 sec (9.1-11.1)
[2018-08-14 08:59] LABS: PHOSPHORUS 2.6 mg/dL (2.5-4.9)
[2018-08-14] MEDS: CALCIUM CARBONATE 1250MG TABLET (500MG ELEMENTAL CALCIUM) PO SCH (09:00)
[2018-08-14] MEDS: FOLIC ACID/VITAMIN B COMP W-C TABLET PO SCH (09:00)
[2018-08-14] MEDS: DOCUSATE SODIUM 250MG CAPSULE PO SCH (09:00)
[2018-08-14] MEDS: INSULIN LISPRO 100 UNITS/ML SUBCUT SCH ×4 (09:24→20:49)
[2018-08-14] MEDS: PREGABALIN 50 MG CAPSULE PO SCH (09:28)
[2018-08-14] MEDS: TAMSULOSIN HCL 0.4MG SR CAPSULE PO SCH (09:28)
[2018-08-14] MEDS: LEVETIRACETAM 500MG TABLET PO SCH ×2 (09:29→21:12)
[2018-08-14] MEDS: LACTOBACILLUS GG CAPSULE PO SCH (09:29)
[2018-08-14 10:27] LABS: NUCLEATED RED BLOOD CELLS 1 /100 WBC
[2018-08-14 10:28] LABS: PLATELET ESTIMATE DECREASED
[2018-08-14] MEDS: LIDOCAINE 5% PATCH TOP SCH (10:56)
[2018-08-14] MEDS: CLOTRIMAZOLE 1% CREAM 30GM TOP SCH ×2 (10:57→20:33)
[2018-08-14] MEDS: SODIUM HYPOCHLORITE 0.125% 473ML SOLUTION TOP SCH ×2 (10:57→20:32)
[2018-08-14] MEDS ORDERED: HYDROMORPHONE HCL/PF 2MG/ML CPJ IV NR (11:00)
[2018-08-14] MEDS: INSULIN GLARGINE UD 100 UNITS/ML SYR SUBCUT SCH (11:09)
[2018-08-14] MEDS: MEROPENEM 500 MG in SODIUM CHLORIDE 0.9% 50 ML IV SCH (18:15)
[2018-08-14] MEDS ORDERED: HYDROMORPHONE HCL/PF 2MG/ML CPJ IV ONE (22:30)
[2018-08-15] VITALS (10 sets, daily range): BP systolic 96–128; BP diastolic 51–74
[2018-08-15 04:13] LABS: OVA & PARASITE EXAM Final report (.)
[2018-08-15] MEDS: MIDODRINE HCL 5MG TABLET PO SCH ×3 (06:03→21:15)
[2018-08-15] MEDS: LIDOCAINE HCL 4% CREAM 76GM TUBE TP SCH (06:04)
[2018-08-15] MEDS: DEXT 5%/0.9% NACL 1,000 ML IV SCH ×2 (06:06→06:43)
[2018-08-15] MEDS: BLOOD SUGAR DIAGNOSTIC STRIP TEST SCH ×4 (07:40→20:56)
[2018-08-15] MEDS: INSULIN LISPRO 100 UNITS/ML SUBCUT SCH ×4 (08:00→20:56)
[2018-08-15] MEDS: PREGABALIN 50 MG CAPSULE PO SCH (08:33)
[2018-08-15] MEDS: LEVETIRACETAM 500MG TABLET PO SCH ×2 (08:33→20:57)
[2018-08-15] MEDS: CALCIUM CARBONATE 1250MG TABLET (500MG ELEMENTAL CALCIUM) PO SCH (08:35)
[2018-08-15] MEDS: FOLIC ACID/VITAMIN B COMP W-C TABLET PO SCH (08:35)
[2018-08-15] MEDS: LACTOBACILLUS GG CAPSULE PO SCH (08:35)
[2018-08-15] MEDS: FERROUS SULFATE 325MG TABLET PO SCH ×3 (08:35→17:47)
[2018-08-15] MEDS: LIDOCAINE 5% PATCH TOP SCH (08:35)
[2018-08-15] MEDS: SODIUM HYPOCHLORITE 0.125% 473ML SOLUTION TOP SCH ×2 (08:36→20:57)
[2018-08-15] MEDS: SEVELAMER CARBONATE 800 MG TABLET PO SCH ×3 (08:36→17:47)
[2018-08-15] MEDS: DOCUSATE SODIUM 250MG CAPSULE PO SCH (08:36)
[2018-08-15] MEDS: TAMSULOSIN HCL 0.4MG SR CAPSULE PO SCH (08:36)
[2018-08-15] MEDS: CLOTRIMAZOLE 1% CREAM 30GM TOP SCH ×2 (08:37→21:07)
[2018-08-15] MEDS ORDERED: DIPHENHYDRAMINE 50MG/ML VIAL IV SCH (09:00)
[2018-08-15 09:17] LABS: BASOPHILS % 0.3 % (0.0-2.0); EOSINOPHILS % 0.7 % (0.0-5.0); HEMATOCRIT. 23.8 % (42.0-52.0); HEMOGLOBIN. 7.9 g/dL (14.0-18.0); MEAN CORPUSCULAR HEMOGLOBIN 28.7 pg (28.0-32.0); MEAN CORPUSCULAR VOLUME 86.7 fL (80.0-94.0); MEAN PLATELET VOLUME 8.7 fl (7.4-10.4); MONOCYTES % 5.5 % (2.0-8.0); NEUTROPHILS % 73.5 % (40.0-76.0); PLATELET 79 x1000/uL (130-400); RED BLOOD CELL COUNT 2.74 mill/uL (4.7-6.1)
[2018-08-15 09:31] LABS: INR 2.4; PROTHROMBIN TIME 23.3 sec (9.1-11.1)
[2018-08-15] MEDS: INSULIN GLARGINE UD 100 UNITS/ML SYR SUBCUT SCH (09:55)
[2018-08-15] MEDS: DAPTOMYCIN 375 MG in SODIUM CHLORIDE 0.9% 50 ML IV SCH (17:46)
[2018-08-15] MEDS: MEROPENEM 500 MG in SODIUM CHLORIDE 0.9% 50 ML IV SCH (18:53)
[2018-08-15] MEDS: ACETAMINOPHEN 325MG TABLET PO PRN ×2 (21:44→21:45)
[2018-08-16] VITALS (12 sets, daily range): BP systolic 96–131; BP diastolic 33–73
[2018-08-16] MEDS: DEXT 5%/0.9% NACL 1,000 ML IV SCH ×3 (02:15→20:38)
[2018-08-16] MEDS: MIDODRINE HCL 5MG TABLET PO SCH ×3 (05:48→20:38)
[2018-08-16] MEDS: BLOOD SUGAR DIAGNOSTIC STRIP TEST SCH ×4 (08:28→20:34)
[2018-08-16] MEDS: TAMSULOSIN HCL 0.4MG SR CAPSULE PO SCH (09:55)
[2018-08-16] MEDS: INSULIN LISPRO 100 UNITS/ML SUBCUT SCH ×4 (09:55→20:34)
[2018-08-16] MEDS: INSULIN GLARGINE UD 100 UNITS/ML SYR SUBCUT SCH (09:55)
[2018-08-16] MEDS: SEVELAMER CARBONATE 800 MG TABLET PO SCH ×3 (09:55→18:00)
[2018-08-16] MEDS: SODIUM HYPOCHLORITE 0.125% 473ML SOLUTION TOP SCH ×2 (09:55→20:34)
[2018-08-16] MEDS: DOCUSATE SODIUM 250MG CAPSULE PO SCH (09:55)
[2018-08-16] MEDS: PREGABALIN 50 MG CAPSULE PO SCH (09:55)
[2018-08-16] MEDS: FERROUS SULFATE 325MG TABLET PO SCH (09:55)
[2018-08-16] MEDS: CLOTRIMAZOLE 1% CREAM 30GM TOP SCH ×2 (09:55→20:34)
[2018-08-16] MEDS: LIDOCAINE 5% PATCH TOP SCH (09:55)
[2018-08-16] MEDS: LEVETIRACETAM 500MG TABLET PO SCH ×2 (09:55→20:37)
[2018-08-16] MEDS: LACTOBACILLUS GG CAPSULE PO SCH (09:55)
[2018-08-16 10:16] LABS: BASOPHILS % 0.2 % (0.0-2.0); EOSINOPHILS % 0.4 % (0.0-5.0); HEMOGLOBIN. 7.1 g/dL (14.0-18.0); LYMPHOCYTES % 24.7 % (20.0-50.0); MEAN CORPUSCULAR HEMOGLOBIN 29.2 pg (28.0-32.0); MEAN CORPUSCULAR VOLUME 85.8 fL (80.0-94.0); MONOCYTES % 5.2 % (2.0-8.0); NEUTROPHILS % 69.5 % (40.0-76.0); PLATELET 63 x1000/uL (130-400); RED BLOOD CELL COUNT 2.42 mill/uL (4.7-6.1); RED CELL DISTRIBUTION WIDTH 16.6 % (11.6-14.6)
[2018-08-16 10:42] LABS: HEMATOCRIT. 20.8 % (42.0-52.0)
[2018-08-16] MEDS: MEROPENEM 500 MG in SODIUM CHLORIDE 0.9% 50 ML IV SCH (19:21)
[2018-08-17] VITALS (14 sets, daily range): BP systolic 98–137; BP diastolic 40–71
[2018-08-17] MEDS: MIDODRINE HCL 5MG TABLET PO SCH ×3 (05:15→21:03)
[2018-08-17] MEDS: BLOOD SUGAR DIAGNOSTIC STRIP TEST SCH ×4 (07:30→21:03)
[2018-08-17] MEDS: INSULIN LISPRO 100 UNITS/ML SUBCUT SCH ×4 (08:00→21:00)
[2018-08-17] MEDS: SEVELAMER CARBONATE 800 MG TABLET PO SCH ×3 (08:00→17:50)
[2018-08-17] MEDS: CLOTRIMAZOLE 1% CREAM 30GM TOP SCH ×2 (09:00→21:04)
[2018-08-17] MEDS: LEVETIRACETAM 500MG TABLET PO SCH ×2 (09:00→21:03)
[2018-08-17] MEDS: PREGABALIN 50 MG CAPSULE PO SCH (09:00)
[2018-08-17] MEDS: TAMSULOSIN HCL 0.4MG SR CAPSULE PO SCH (09:00)
[2018-08-17] MEDS: DOCUSATE SODIUM 250MG CAPSULE PO SCH (09:00)
[2018-08-17] MEDS: SODIUM HYPOCHLORITE 0.125% 473ML SOLUTION TOP SCH ×3 (09:00→21:04)
[2018-08-17] MEDS: LACTOBACILLUS GG CAPSULE PO SCH (09:00)
[2018-08-17] MEDS: LIDOCAINE 5% PATCH TOP SCH (09:00)
[2018-08-17] MEDS: INSULIN GLARGINE UD 100 UNITS/ML SYR SUBCUT SCH (10:00)
[2018-08-17 10:20] LABS: BASOPHILS % 0.4 % (0.0-2.0); EOSINOPHILS % 0.7 % (0.0-5.0); LYMPHOCYTES % 25.8 % (20.0-50.0); MEAN CORPUSCULAR VOLUME 85.9 fL (80.0-94.0); MEAN PLATELET VOLUME 8.9 fl (7.4-10.4); NEUTROPHILS % 67.1 % (40.0-76.0); PLATELET 63 x1000/uL (130-400); RED BLOOD CELL COUNT 2.28 mill/uL (4.7-6.1); RED CELL DISTRIBUTION WIDTH 16.8 % (11.6-14.6)
[2018-08-17] MEDS: DEXT 5%/0.9% NACL 1,000 ML IV SCH ×2 (10:24→21:03)
[2018-08-17 10:45] LABS: HEMATOCRIT. 19.6 % (42.0-52.0); HEMOGLOBIN. 6.6 g/dL (14.0-18.0)
[2018-08-17] MEDS: DAPTOMYCIN 375 MG in SODIUM CHLORIDE 0.9% 50 ML IV SCH (17:48)
[2018-08-17] MEDS: MEROPENEM 500 MG in SODIUM CHLORIDE 0.9% 50 ML IV SCH (17:49)
[2018-08-17] MEDS: EPOETIN ALFA 10000UNITS/ML VIAL SUBCUT SCH (21:00)
[2018-08-18] VITALS (16 sets, daily range): BP systolic 96–144; BP diastolic 41–80
[2018-08-18] MEDS: DEXT 5%/0.9% NACL 1,000 ML IV SCH ×2 (04:15→12:27)
[2018-08-18] MEDS: MIDODRINE HCL 5MG TABLET PO SCH ×4 (05:31→20:40)
[2018-08-18] MEDS: BLOOD SUGAR DIAGNOSTIC STRIP TEST SCH ×4 (07:30→20:33)
[2018-08-18] MEDS: SEVELAMER CARBONATE 800 MG TABLET PO SCH ×3 (08:00→18:00)
[2018-08-18] MEDS: INSULIN LISPRO 100 UNITS/ML SUBCUT SCH ×4 (08:00→20:34)
[2018-08-18] MEDS: LEVETIRACETAM 500MG TABLET PO SCH ×3 (09:00→20:40)
[2018-08-18] MEDS: LIDOCAINE 5% PATCH TOP SCH (09:00)
[2018-08-18] MEDS: LACTOBACILLUS GG CAPSULE PO SCH (09:00)
[2018-08-18] MEDS: DOCUSATE SODIUM 250MG CAPSULE PO SCH (09:00)
[2018-08-18] MEDS: TAMSULOSIN HCL 0.4MG SR CAPSULE PO SCH (09:00)
[2018-08-18] MEDS: CLOTRIMAZOLE 1% CREAM 30GM TOP SCH ×2 (09:00→20:34)
[2018-08-18] MEDS: SODIUM HYPOCHLORITE 0.125% 473ML SOLUTION TOP SCH ×2 (09:00→20:34)
[2018-08-18] MEDS: PREGABALIN 50 MG CAPSULE PO SCH (09:00)
[2018-08-18 09:17] LABS: BASOPHILS % 0.7 % (0.0-2.0); EOSINOPHILS % 0.6 % (0.0-5.0); LYMPHOCYTES % 33.9 % (20.0-50.0); MEAN CORPUSCULAR HEMOGLOBIN 28.7 pg (28.0-32.0); MEAN CORPUSCULAR VOLUME 84.3 fL (80.0-94.0); MEAN PLATELET VOLUME 8.7 fl (7.4-10.4); MONOCYTES % 3.8 % (2.0-8.0); PLATELET 71 x1000/uL (130-400); RED BLOOD CELL COUNT 2.33 mill/uL (4.7-6.1); RED CELL DISTRIBUTION WIDTH 17.1 % (11.6-14.6)
[2018-08-18 09:21] LABS: HEMATOCRIT. 19.7 % (42.0-52.0); HEMOGLOBIN. 6.7 g/dL (14.0-18.0)
[2018-08-18] MEDS: INSULIN GLARGINE UD 100 UNITS/ML SYR SUBCUT SCH ×2 (10:00→12:14)
[2018-08-18] MEDS: DIPHENHYDRAMINE 50MG/ML VIAL IV PRN (12:05)
[2018-08-18] MEDS: MEROPENEM 500 MG in SODIUM CHLORIDE 0.9% 50 ML IV SCH (18:56)
[2018-08-19] VITALS (12 sets, daily range): BP systolic 114–148; BP diastolic 59–80
[2018-08-19] MEDS: DEXT 5%/0.9% NACL 1,000 ML IV SCH ×2 (00:15→12:14)
[2018-08-19] MEDS: DIPHENHYDRAMINE 50MG/ML VIAL IV PRN ×4 (03:17→21:29)
[2018-08-19] MEDS: MIDODRINE HCL 5MG TABLET PO SCH ×3 (06:08→21:23)
[2018-08-19] MEDS ORDERED: POTASSIUM CHLORIDE 20MEQ TABLET SR PO NR (07:30)
[2018-08-19] MEDS: BLOOD SUGAR DIAGNOSTIC STRIP TEST SCH ×4 (07:48→21:23)
[2018-08-19] MEDS: INSULIN LISPRO 100 UNITS/ML SUBCUT SCH ×4 (08:00→21:00)
[2018-08-19] MEDS: DOCUSATE SODIUM 250MG CAPSULE PO SCH (08:42)
[2018-08-19] MEDS: SEVELAMER CARBONATE 800 MG TABLET PO SCH ×3 (08:57→17:34)
[2018-08-19] MEDS: PREGABALIN 50 MG CAPSULE PO SCH (08:57)
[2018-08-19] MEDS: LEVETIRACETAM 500MG TABLET PO SCH ×2 (08:58→21:23)
[2018-08-19] MEDS: LACTOBACILLUS GG CAPSULE PO SCH (08:58)
[2018-08-19] MEDS: SODIUM HYPOCHLORITE 0.125% 473ML SOLUTION TOP SCH ×2 (08:59→21:22)
[2018-08-19] MEDS: LIDOCAINE 5% PATCH TOP SCH (08:59)
[2018-08-19] MEDS: CLOTRIMAZOLE 1% CREAM 30GM TOP SCH ×2 (09:00→21:24)
[2018-08-19] MEDS: TAMSULOSIN HCL 0.4MG SR CAPSULE PO SCH (09:03)
[2018-08-19 10:40] LABS: BASOPHILS % 0.8 % (0.0-2.0); EOSINOPHILS % 0.2 % (0.0-5.0); HEMATOCRIT. 21.5 % (42.0-52.0); HEMOGLOBIN. 7.3 g/dL (14.0-18.0); LYMPHOCYTES % 32.4 % (20.0-50.0); MEAN CORPUSCULAR HEMOGLOBIN 28.9 pg (28.0-32.0); MEAN PLATELET VOLUME 8.7 fl (7.4-10.4); MONOCYTES % 6.1 % (2.0-8.0); NEUTROPHILS % 60.5 % (40.0-76.0); PLATELET 63 x1000/uL (130-400); RED BLOOD CELL COUNT 2.53 mill/uL (4.7-6.1); RED CELL DISTRIBUTION WIDTH 16.3 % (11.6-14.6)
[2018-08-19] MEDS: DAPTOMYCIN 375 MG in SODIUM CHLORIDE 0.9% 50 ML IV SCH (17:35)
[2018-08-19] MEDS: MEROPENEM 500 MG in SODIUM CHLORIDE 0.9% 50 ML IV SCH (17:35)
[2018-08-19] MEDS: EPOETIN ALFA 10000UNITS/ML VIAL SUBCUT SCH (21:24)
[2018-08-20] VITALS (15 sets, daily range): BP systolic 107–139; BP diastolic 53–79
[2018-08-20] MEDS: MIDODRINE HCL 5MG TABLET PO SCH ×3 (05:37→21:11)
[2018-08-20] MEDS: BLOOD SUGAR DIAGNOSTIC STRIP TEST SCH ×4 (05:37→21:13)
[2018-08-20] MEDS: SEVELAMER CARBONATE 800 MG TABLET PO SCH ×4 (08:00→17:54)
[2018-08-20] MEDS: INSULIN LISPRO 100 UNITS/ML SUBCUT SCH ×4 (08:00→21:06)
[2018-08-20] MEDS: DIPHENHYDRAMINE 50MG/ML VIAL IV PRN ×2 (08:34→17:33)
[2018-08-20] MEDS: DEXT 5%/0.9% NACL 1,000 ML IV SCH (08:57)
[2018-08-20] MEDS: LEVETIRACETAM 500MG TABLET PO SCH ×2 (09:00→21:00)
[2018-08-20] MEDS: LIDOCAINE 5% PATCH TOP SCH (09:00)
[2018-08-20] MEDS: PREGABALIN 50 MG CAPSULE PO SCH (09:00)
[2018-08-20] MEDS: SODIUM HYPOCHLORITE 0.125% 473ML SOLUTION TOP SCH ×2 (09:00→21:00)
[2018-08-20] MEDS: LACTOBACILLUS GG CAPSULE PO SCH (09:00)
[2018-08-20] MEDS: CLOTRIMAZOLE 1% CREAM 30GM TOP SCH ×2 (09:00→21:00)
[2018-08-20 09:07] LABS: BASOPHILS % 0.3 % (0.0-2.0); EOSINOPHILS % 0.3 % (0.0-5.0); HEMOGLOBIN. 7.1 g/dL (14.0-18.0); LYMPHOCYTES % 40.5 % (20.0-50.0); MEAN CORPUSCULAR HEMOGLOBIN 28.9 pg (28.0-32.0); MEAN CORPUSCULAR VOLUME 84.9 fL (80.0-94.0); MONOCYTES % 5.6 % (2.0-8.0); NEUTROPHILS % 53.3 % (40.0-76.0); PLATELET 62 x1000/uL (130-400); RED BLOOD CELL COUNT 2.47 mill/uL (4.7-6.1); RED CELL DISTRIBUTION WIDTH 15.9 % (11.6-14.6)
[2018-08-20 09:13] LABS: HEMATOCRIT. 20.9 % (42.0-52.0)
[2018-08-20] MEDS: INSULIN GLARGINE UD 100 UNITS/ML SYR SUBCUT SCH (10:00)
[2018-08-20 12:34] LABS: PLT FUNCT COLLAGEN/EPINEPHRINE > 300 CT(SEC) (76-176); PTLFUNC COLLAGEN/ADP > 300 CT(SEC) (60-115)
[2018-08-20] MEDS: MEROPENEM 500 MG in SODIUM CHLORIDE 0.9% 50 ML IV SCH (17:28)
[2018-08-20] MEDS: ACETAMINOPHEN 325MG TABLET PO PRN (17:52)
[2018-08-21] VITALS (12 sets, daily range): BP systolic 102–141; BP diastolic 49–80
[2018-08-21] MEDS: DIPHENHYDRAMINE 50MG/ML VIAL IV PRN ×2 (00:04→09:30)
[2018-08-21] MEDS: MIDODRINE HCL 5MG TABLET PO SCH ×3 (05:59→20:38)
[2018-08-21] MEDS: BLOOD SUGAR DIAGNOSTIC STRIP TEST SCH ×4 (07:30→21:00)
[2018-08-21] MEDS: INSULIN LISPRO 100 UNITS/ML SUBCUT SCH ×4 (08:00→21:00)
[2018-08-21 08:56] LABS: BASOPHILS % 0.4 % (0.0-2.0); EOSINOPHILS % 0.2 % (0.0-5.0); HEMOGLOBIN. 7.9 g/dL (14.0-18.0); LYMPHOCYTES % 35.6 % (20.0-50.0); MEAN CORPUSCULAR HEMOGLOBIN 29.2 pg (28.0-32.0); MEAN CORPUSCULAR VOLUME 84.8 fL (80.0-94.0); NEUTROPHILS % 57.8 % (40.0-76.0); PLATELET 59 x1000/uL (130-400); RED BLOOD CELL COUNT 2.71 mill/uL (4.7-6.1); RED CELL DISTRIBUTION WIDTH 15.5 % (11.6-14.6)
[2018-08-21] MEDS: LIDOCAINE 5% PATCH TOP SCH (09:00)
[2018-08-21] MEDS: SODIUM HYPOCHLORITE 0.125% 473ML SOLUTION TOP SCH ×2 (09:00→21:00)
[2018-08-21] MEDS: LACTOBACILLUS GG CAPSULE PO SCH (09:17)
[2018-08-21] MEDS: PREGABALIN 50 MG CAPSULE PO SCH (09:17)
[2018-08-21] MEDS: SEVELAMER CARBONATE 800 MG TABLET PO SCH ×3 (09:17→17:53)
[2018-08-21] MEDS: LEVETIRACETAM 500MG TABLET PO SCH ×2 (09:17→20:37)
[2018-08-21] MEDS: DEXT 5%/0.9% NACL 1,000 ML IV SCH (09:18)
[2018-08-21] MEDS: CLOTRIMAZOLE 1% CREAM 30GM TOP SCH ×2 (09:18→21:00)
[2018-08-21] MEDS: INSULIN GLARGINE UD 100 UNITS/ML SYR SUBCUT SCH (10:51)
[2018-08-21] MEDS: POTASSIUM CHLORIDE 20MEQ/PACKET PO SCH (12:40)
[2018-08-21 13:21] LABS: PHOSPHORUS 3.5 mg/dL (2.5-4.9)
[2018-08-21] MEDS: DAPTOMYCIN 375 MG in SODIUM CHLORIDE 0.9% 50 ML IV SCH (17:51)
[2018-08-21] MEDS: MEROPENEM 500 MG in SODIUM CHLORIDE 0.9% 50 ML IV SCH (17:51)
[2018-08-21] MEDS: EPOETIN ALFA 10000UNITS/ML VIAL SUBCUT SCH (20:38)
[2018-08-22] VITALS (13 sets, daily range): BP systolic 104–143; BP diastolic 52–78
[2018-08-22] MEDS: MIDODRINE HCL 5MG TABLET PO SCH ×3 (05:15→21:01)
[2018-08-22] MEDS: DEXT 5%/0.9% NACL 1,000 ML IV SCH (05:15)
[2018-08-22] MEDS: DIPHENHYDRAMINE 50MG/ML VIAL IV PRN ×2 (05:15→11:08)
[2018-08-22] MEDS: LACTOBACILLUS GG CAPSULE PO SCH (09:00)
[2018-08-22] MEDS: POTASSIUM CHLORIDE 20MEQ/PACKET PO SCH (09:00)
[2018-08-22] MEDS: LEVETIRACETAM 500MG TABLET PO SCH ×2 (09:00→21:01)
[2018-08-22] MEDS: SODIUM HYPOCHLORITE 0.125% 473ML SOLUTION TOP SCH ×2 (09:00→21:00)
[2018-08-22] MEDS: LIDOCAINE 5% PATCH TOP SCH (09:00)
[2018-08-22] MEDS: CLOTRIMAZOLE 1% CREAM 30GM TOP SCH ×2 (09:00→21:00)
[2018-08-22] MEDS: PREGABALIN 50 MG CAPSULE PO SCH (09:00)
[2018-08-22] MEDS: INSULIN LISPRO 100 UNITS/ML SUBCUT SCH ×4 (09:41→21:00)
[2018-08-22] MEDS: SEVELAMER CARBONATE 800 MG TABLET PO SCH ×3 (09:41→18:00)
[2018-08-22] MEDS: BLOOD SUGAR DIAGNOSTIC STRIP TEST SCH ×4 (09:41→21:00)
[2018-08-22] MEDS: INSULIN GLARGINE UD 100 UNITS/ML SYR SUBCUT SCH (09:43)
[2018-08-22] MEDS ORDERED: GENTAMICIN SULFATE 160 MG in SODIUM CHLORIDE 0.9% 100 ML IV SCH (16:00)
[2018-08-22] MEDS: METRONIDAZOLE 250MG TABLET PO SCH ×2 (18:00→23:03)
[2018-08-22] MEDS: ACETAMINOPHEN 325MG TABLET PO PRN (21:00)
[2018-08-23] VITALS (11 sets, daily range): BP systolic 114–141; BP diastolic 54–78
[2018-08-23] MEDS: DIPHENHYDRAMINE 50MG/ML VIAL IV PRN ×4 (00:43→23:18)
[2018-08-23] MEDS: DEXT 5%/0.9% NACL 1,000 ML IV SCH ×2 (00:43→14:22)
[2018-08-23] MEDS: METRONIDAZOLE 250MG TABLET PO SCH ×3 (05:19→17:51)
[2018-08-23] MEDS: MIDODRINE HCL 5MG TABLET PO SCH ×3 (05:25→22:00)
[2018-08-23] MEDS: BLOOD SUGAR DIAGNOSTIC STRIP TEST SCH ×4 (07:30→21:00)
[2018-08-23] MEDS: SEVELAMER CARBONATE 800 MG TABLET PO SCH ×2 (08:00→13:00)
[2018-08-23] MEDS: FERROUS SULFATE 325MG TABLET PO SCH ×3 (08:00→17:21)
[2018-08-23] MEDS: INSULIN LISPRO 100 UNITS/ML SUBCUT SCH ×4 (08:00→21:00)
[2018-08-23] MEDS: POTASSIUM CHLORIDE 20MEQ/PACKET PO SCH (09:00)
[2018-08-23] MEDS: LIDOCAINE 5% PATCH TOP SCH (09:00)
[2018-08-23] MEDS: PREGABALIN 50 MG CAPSULE PO SCH (09:00)
[2018-08-23] MEDS: FOLIC ACID/VITAMIN B COMP W-C TABLET PO SCH (09:00)
[2018-08-23] MEDS: LACTOBACILLUS GG CAPSULE PO SCH (09:00)
[2018-08-23] MEDS: LEVETIRACETAM 500MG TABLET PO SCH ×2 (09:00→21:00)
[2018-08-23] MEDS ORDERED: ONDANSETRON HCL 4MG/2ML INJ IV PRN (09:15)
[2018-08-23] MEDS ORDERED: PANTOPRAZOLE 40MG DR TABLET PO NR (09:15)
[2018-08-23] MEDS: PANTOPRAZOLE 40MG DR TABLET PO SCH (09:30)
[2018-08-23] MEDS: INSULIN GLARGINE UD 100 UNITS/ML SYR SUBCUT SCH (10:00)
[2018-08-23] MEDS: SODIUM HYPOCHLORITE 0.125% 473ML SOLUTION TOP SCH ×2 (11:22→21:00)
[2018-08-23] MEDS: CLOTRIMAZOLE 1% CREAM 30GM TOP SCH ×2 (11:22→21:00)
[2018-08-23] MEDS: EPOETIN ALFA 10000UNITS/ML VIAL SUBCUT SCH (21:00)
[2018-08-24] VITALS: BP 105/64
[2018-08-24 04:00] VITALS: BP 105/52
[2018-08-24] MEDS: METRONIDAZOLE 250MG TABLET PO SCH ×5 (05:04→17:59)
[2018-08-24] MEDS: DIPHENHYDRAMINE 50MG/ML VIAL IV PRN ×3 (05:20→18:00)
[2018-08-24] MEDS: BLOOD SUGAR DIAGNOSTIC STRIP TEST SCH ×4 (06:26→21:42)
[2018-08-24] MEDS: FERROUS SULFATE 325MG TABLET PO SCH ×3 (07:50→16:57)
[2018-08-24] MEDS: INSULIN LISPRO 100 UNITS/ML SUBCUT SCH ×4 (07:50→21:00)
[2018-08-24 08:00] VITALS: BP 105/70
[2018-08-24] MEDS: LEVETIRACETAM 500MG TABLET PO SCH (08:23)
[2018-08-24] MEDS: POTASSIUM CHLORIDE 20MEQ/PACKET PO SCH (08:23)
[2018-08-24] MEDS: FOLIC ACID/VITAMIN B COMP W-C TABLET PO SCH (08:23)
[2018-08-24] MEDS: LACTOBACILLUS GG CAPSULE PO SCH (08:23)
[2018-08-24] MEDS: PREGABALIN 50 MG CAPSULE PO SCH (08:23)
[2018-08-24] MEDS: CLOTRIMAZOLE 1% CREAM 30GM TOP SCH ×2 (08:24→21:00)
[2018-08-24] MEDS: SODIUM HYPOCHLORITE 0.125% 473ML SOLUTION TOP SCH ×2 (08:24→21:00)
[2018-08-24] MEDS: LIDOCAINE 5% PATCH TOP SCH (08:24)
[2018-08-24] MEDS: PANTOPRAZOLE 40MG DR TABLET PO SCH (08:24)
[2018-08-24 08:52] LABS: MEAN CORPUSCULAR VOLUME 85.3 fL (80.0-94.0); MEAN PLATELET VOLUME 9.2 fl (7.4-10.4); PLATELET 65 x1000/uL (130-400); RED BLOOD CELL COUNT 2.46 mill/uL (4.7-6.1); RED CELL DISTRIBUTION WIDTH 15.8 % (11.6-14.6)
[2018-08-24 08:59] LABS: HEMOGLOBIN. 7.1 g/dL (14.0-18.0)
[2018-08-24 09:00] LABS: GENTAMICIN RANDOM 1.5 ug/mL
[2018-08-24] MEDS: INSULIN GLARGINE UD 100 UNITS/ML SYR SUBCUT SCH ×2 (10:00→10:22)
[2018-08-24] MEDS: DEXT 5%/0.9% NACL 1,000 ML IV SCH (13:02)
[2018-08-24 16:00] VITALS: BP 117/64
[2018-08-24 16:02] LABS: PLATELET ESTIMATE DECREASED
[2018-08-24 19:07] LABS: HLA CLASS 1 ANTIBODY Negative (Negative); IIb/IIIa ANTIBODY Negative (Negative); Ia/IIa ANTIBODY Negative (Negative); Ib/IX ANTIBODY Negative (Negative)
[2018-08-24 20:00] VITALS: BP 126/65
[2018-08-25 00:12] VITALS: BP 111/64
[2018-08-25 04:00] VITALS: BP 133/70
[2018-08-25] MEDS: METRONIDAZOLE 250MG TABLET PO SCH ×4 (05:32→17:51)
[2018-08-25] MEDS: DIPHENHYDRAMINE 50MG/ML VIAL IV PRN ×4 (06:11→19:45)
[2018-08-25] MEDS: BLOOD SUGAR DIAGNOSTIC STRIP TEST SCH ×4 (06:20→21:00)
[2018-08-25] MEDS: FERROUS SULFATE 325MG TABLET PO SCH ×3 (07:50→17:50)
[2018-08-25] MEDS: INSULIN LISPRO 100 UNITS/ML SUBCUT SCH ×4 (07:50→21:00)
[2018-08-25 08:00] VITALS: BP 123/63
[2018-08-25] MEDS: POTASSIUM CHLORIDE 20MEQ/PACKET PO SCH (09:00)
[2018-08-25] MEDS: PANTOPRAZOLE 40MG DR TABLET PO SCH (09:00)
[2018-08-25] MEDS: FOLIC ACID/VITAMIN B COMP W-C TABLET PO SCH (09:00)
[2018-08-25] MEDS: LIDOCAINE 5% PATCH TOP SCH (09:00)
[2018-08-25] MEDS: SODIUM HYPOCHLORITE 0.125% 473ML SOLUTION TOP SCH ×2 (09:00→21:00)
[2018-08-25] MEDS: LACTOBACILLUS GG CAPSULE PO SCH (09:00)
[2018-08-25] MEDS: CLOTRIMAZOLE 1% CREAM 30GM TOP SCH ×2 (09:00→21:00)
[2018-08-25] MEDS: DEXT 5%/0.9% NACL 1,000 ML IV SCH (09:08)
[2018-08-25] MEDS: INSULIN GLARGINE UD 100 UNITS/ML SYR SUBCUT SCH (09:37)
[2018-08-25 12:00] VITALS: BP 148/79
[2018-08-25 13:03] LABS: BASOPHILS % 0.3 % (0.0-2.0); EOSINOPHILS % 0.4 % (0.0-5.0); HEMATOCRIT. 21.1 % (42.0-52.0); HEMOGLOBIN. 7.3 g/dL (14.0-18.0); LYMPHOCYTES % 40.1 % (20.0-50.0); MEAN CORPUSCULAR HEMOGLOBIN 28.8 pg (28.0-32.0); MEAN CORPUSCULAR VOLUME 83.5 fL (80.0-94.0); MONOCYTES % 5.1 % (2.0-8.0); NEUTROPHILS % 54.1 % (40.0-76.0); PLATELET 66 x1000/uL (130-400); RED BLOOD CELL COUNT 2.53 mill/uL (4.7-6.1); RED CELL DISTRIBUTION WIDTH 16.4 % (11.6-14.6)
[2018-08-25] MEDS ORDERED: GENTAMICIN SULFATE 140 MG in SODIUM CHLORIDE 0.9% 100 ML IV SCH (15:00)
[2018-08-25 16:00] VITALS: BP 150/80
[2018-08-25 20:00] VITALS: BP 114/61
[2018-08-25] MEDS: EPOETIN ALFA 10000UNITS/ML VIAL SUBCUT SCH (21:00)
[2018-08-26] VITALS: BP 123/48
[2018-08-26 04:00] VITALS: BP 92/52
[2018-08-26] MEDS: DIPHENHYDRAMINE 50MG/ML VIAL IV PRN ×2 (04:13→17:30)
[2018-08-26] MEDS: DEXT 5%/0.9% NACL 1,000 ML IV SCH (04:13)
[2018-08-26] MEDS: BLOOD SUGAR DIAGNOSTIC STRIP TEST SCH ×4 (05:27→20:47)
[2018-08-26] MEDS: METRONIDAZOLE 250MG TABLET PO SCH ×4 (05:27→17:27)
[2018-08-26] MEDS: INSULIN LISPRO 100 UNITS/ML SUBCUT SCH ×4 (07:50→20:48)
[2018-08-26 08:00] VITALS: BP 115/71
[2018-08-26] MEDS: LACTOBACILLUS GG CAPSULE PO SCH (08:48)
[2018-08-26] MEDS: POTASSIUM CHLORIDE 20MEQ/PACKET PO SCH (08:48)
[2018-08-26] MEDS: PANTOPRAZOLE 40MG DR TABLET PO SCH (08:48)
[2018-08-26] MEDS: FERROUS SULFATE 325MG TABLET PO SCH ×3 (08:48→17:27)
[2018-08-26] MEDS: FOLIC ACID/VITAMIN B COMP W-C TABLET PO SCH (08:48)
[2018-08-26] MEDS: LIDOCAINE 5% PATCH TOP SCH (08:50)
[2018-08-26] MEDS: CLOTRIMAZOLE 1% CREAM 30GM TOP SCH ×2 (08:50→21:00)
[2018-08-26] MEDS: MORPHINE SULFATE 4 MG/ML CPJ (NOT FOR IM USE) IV PRN ×2 (08:52→17:31)
[2018-08-26] MEDS: SODIUM HYPOCHLORITE 0.125% 473ML SOLUTION TOP SCH ×2 (09:00→21:00)
[2018-08-26] MEDS: INSULIN GLARGINE UD 100 UNITS/ML SYR SUBCUT SCH (10:17)
[2018-08-26 12:00] VITALS: BP 95/59
[2018-08-26 20:00] VITALS: BP 102/59
[2018-08-27] MEDS: DEXT 5%/0.9% NACL 1,000 ML IV SCH (01:14)
[2018-08-27] MEDS: MORPHINE SULFATE 4 MG/ML CPJ (NOT FOR IM USE) IV PRN ×3 (02:52→17:07)
[2018-08-27 04:00] VITALS: BP 117/64
[2018-08-27] MEDS: BLOOD SUGAR DIAGNOSTIC STRIP TEST SCH ×4 (05:32→22:00)
[2018-08-27] MEDS: METRONIDAZOLE 250MG TABLET PO SCH ×4 (05:41→17:23)
[2018-08-27] MEDS: DIPHENHYDRAMINE 50MG/ML VIAL IV PRN ×3 (05:41→17:07)
[2018-08-27] MEDS: INSULIN LISPRO 100 UNITS/ML SUBCUT SCH ×4 (07:50→21:00)
[2018-08-27 08:00] VITALS: BP 131/71
[2018-08-27 08:58] LABS: RED BLOOD CELL COUNT 2.09 mill/uL (4.7-6.1)
[2018-08-27 09:00] LABS: HEMATOCRIT. 17.9 % (42.0-52.0); MEAN CORPUSCULAR HEMOGLOBIN 28.8 pg (28.0-32.0); MEAN CORPUSCULAR VOLUME 85.6 fL (80.0-94.0); MEAN PLATELET VOLUME 9.1 fl (7.4-10.4); NEUTROPHILS % 57.1 % (40.0-76.0); PLATELET 60 x1000/uL (130-400)
[2018-08-27] MEDS: PANTOPRAZOLE 40MG DR TABLET PO SCH (09:00)
[2018-08-27] MEDS: POTASSIUM CHLORIDE 20MEQ/PACKET PO SCH (09:00)
[2018-08-27] MEDS: FOLIC ACID/VITAMIN B COMP W-C TABLET PO SCH (09:00)
[2018-08-27 09:01] LABS: BASOPHILS % 0.5 % (0.0-2.0); EOSINOPHILS % 0.6 % (0.0-5.0); LYMPHOCYTES % 35.3 % (20.0-50.0); MONOCYTES % 6.5 % (2.0-8.0)
[2018-08-27 09:14] LABS: GENTAMICIN RANDOM 2.8 ug/mL
[2018-08-27] MEDS: LIDOCAINE 5% PATCH TOP SCH (09:39)
[2018-08-27] MEDS: LACTOBACILLUS GG CAPSULE PO SCH (09:39)
[2018-08-27] MEDS: FERROUS SULFATE 325MG TABLET PO SCH ×3 (09:40→17:23)
[2018-08-27] MEDS: CLOTRIMAZOLE 1% CREAM 30GM TOP SCH ×2 (09:40→20:37)
[2018-08-27] MEDS: SODIUM HYPOCHLORITE 0.125% 473ML SOLUTION TOP SCH ×2 (09:40→21:00)
[2018-08-27] MEDS: INSULIN GLARGINE UD 100 UNITS/ML SYR SUBCUT SCH (10:00)
[2018-08-27 12:00] VITALS: BP 131/65
[2018-08-27 13:00] VITALS: BP 120/60
[2018-08-27] MEDS ORDERED: GENTAMICIN 80MG PREMIX 100 ML IV SCH (13:00)
[2018-08-27 16:00] VITALS: BP 119/63
[2018-08-27 20:00] VITALS: BP 109/57
[2018-08-27] MEDS: ACETAMINOPHEN 325MG TABLET PO PRN (20:36)
[2018-08-27] MEDS: EPOETIN ALFA 10000UNITS/ML VIAL SUBCUT SCH (21:00)
[2018-08-28] VITALS (7 sets, daily range): BP systolic 85–140; BP diastolic 47–72
[2018-08-28] MEDS: DIPHENHYDRAMINE 50MG/ML VIAL IV PRN ×2 (03:02→11:22)
[2018-08-28] MEDS: MORPHINE SULFATE 4 MG/ML CPJ (NOT FOR IM USE) IV PRN ×4 (03:13→23:39)
[2018-08-28] MEDS: METRONIDAZOLE 250MG TABLET PO SCH ×5 (06:00→23:49)
[2018-08-28] MEDS: BLOOD SUGAR DIAGNOSTIC STRIP TEST SCH ×4 (07:20→21:00)
[2018-08-28] MEDS: FERROUS SULFATE 325MG TABLET PO SCH ×3 (07:50→17:49)
[2018-08-28] MEDS: INSULIN LISPRO 100 UNITS/ML SUBCUT SCH ×4 (07:50→21:00)
[2018-08-28] MEDS: LIDOCAINE 5% PATCH TOP SCH (09:00)
[2018-08-28] MEDS: SODIUM HYPOCHLORITE 0.125% 473ML SOLUTION TOP SCH ×2 (09:00→21:00)
[2018-08-28] MEDS: FOLIC ACID/VITAMIN B COMP W-C TABLET PO SCH (09:00)
[2018-08-28] MEDS: LACTOBACILLUS GG CAPSULE PO SCH (09:00)
[2018-08-28] MEDS: POTASSIUM CHLORIDE 20MEQ/PACKET PO SCH (09:00)
[2018-08-28] MEDS: PANTOPRAZOLE 40MG DR TABLET PO SCH (09:00)
[2018-08-28 17:09] LABS: BASOPHILS % 0.4 % (0.0-2.0); EOSINOPHILS % 0.7 % (0.0-5.0); HEMATOCRIT. 22.3 % (42.0-52.0); HEMOGLOBIN. 7.5 g/dL (14.0-18.0); LYMPHOCYTES % 29.7 % (20.0-50.0); MEAN CORPUSCULAR HEMOGLOBIN 28.6 pg (28.0-32.0); MEAN CORPUSCULAR VOLUME 84.5 fL (80.0-94.0); MEAN PLATELET VOLUME 9.3 fl (7.4-10.4); MONOCYTES % 5.5 % (2.0-8.0); NEUTROPHILS % 63.7 % (40.0-76.0); PLATELET 59 x1000/uL (130-400); RED BLOOD CELL COUNT 2.63 mill/uL (4.7-6.1); RED CELL DISTRIBUTION WIDTH 15.8 % (11.6-14.6)
[2018-08-28] MEDS: DEXT 5%/0.9% NACL 1,000 ML IV SCH (19:51)
[2018-08-29 04:00] VITALS: BP 169/97
[2018-08-29] MEDS: METRONIDAZOLE 250MG TABLET PO SCH ×3 (05:30→17:58)
[2018-08-29] MEDS: MORPHINE SULFATE 4 MG/ML CPJ (NOT FOR IM USE) IV PRN ×2 (05:34→12:29)
[2018-08-29] MEDS: BLOOD SUGAR DIAGNOSTIC STRIP TEST SCH ×4 (06:22→20:48)
[2018-08-29] MEDS: FERROUS SULFATE 325MG TABLET PO SCH ×3 (07:50→17:50)
[2018-08-29] MEDS: INSULIN LISPRO 100 UNITS/ML SUBCUT SCH ×4 (07:50→20:48)
[2018-08-29 08:00] VITALS: BP 96/58
[2018-08-29] MEDS: SODIUM HYPOCHLORITE 0.125% 473ML SOLUTION TOP SCH ×2 (09:00→09:53)
[2018-08-29] MEDS: PANTOPRAZOLE 40MG DR TABLET PO SCH (09:40)
[2018-08-29] MEDS: POTASSIUM CHLORIDE 20MEQ/PACKET PO SCH (09:40)
[2018-08-29] MEDS: FOLIC ACID/VITAMIN B COMP W-C TABLET PO SCH (09:40)
[2018-08-29] MEDS: LACTOBACILLUS GG CAPSULE PO SCH (09:40)
[2018-08-29] MEDS: ACETAMINOPHEN 325MG TABLET PO PRN (09:40)
[2018-08-29] MEDS: LIDOCAINE 5% PATCH TOP SCH (09:41)
[2018-08-29 12:00] VITALS: BP 68/44
[2018-08-29 16:00] VITALS: BP 119/67
[2018-08-29] MEDS ORDERED: MIDODRINE HCL 5MG TABLET PO SCH (17:00)
[2018-08-29] MEDS: DEXT 5%/0.9% NACL 1,000 ML IV SCH (18:01)
[2018-08-29 20:00] VITALS: BP 110/57
[2018-08-30] VITALS: BP 84/48
[2018-08-30] MEDS ORDERED: SODIUM CHLORIDE 0.9% 500 ML IV ONE (01:15)
[2018-08-30] MEDS: MIDODRINE HCL 5MG TABLET PO SCH ×2 (03:04→17:00)
[2018-08-30 04:00] VITALS: BP 104/68
[2018-08-30] MEDS: MORPHINE SULFATE 4 MG/ML CPJ (NOT FOR IM USE) IV PRN ×3 (04:35→21:55)
[2018-08-30] MEDS: DEXT 5%/0.9% NACL 1,000 ML IV SCH ×2 (06:32→09:41)
[2018-08-30] MEDS: BLOOD SUGAR DIAGNOSTIC STRIP TEST SCH ×4 (06:36→21:10)
[2018-08-30] MEDS: INSULIN LISPRO 100 UNITS/ML SUBCUT SCH ×4 (07:50→21:59)
[2018-08-30] MEDS: FERROUS SULFATE 325MG TABLET PO SCH ×3 (07:50→17:50)
[2018-08-30 08:00] VITALS: BP 111/68
[2018-08-30] MEDS ORDERED: LIDOCAINE HCL/EPINEPHRINE 1%-EPI 1:100,000 20 ML VIAL INFIL NR ×2 (08:15)
[2018-08-30] MEDS: DIPHENHYDRAMINE 25MG CAPSULE PO PRN ×2 (08:54→08:59)
[2018-08-30] MEDS: FOLIC ACID/VITAMIN B COMP W-C TABLET PO SCH (09:00)
[2018-08-30] MEDS: POTASSIUM CHLORIDE 20MEQ/PACKET PO SCH (09:00)
[2018-08-30] MEDS: LACTOBACILLUS GG CAPSULE PO SCH (09:00)
[2018-08-30] MEDS: LIDOCAINE 5% PATCH TOP SCH (09:00)
[2018-08-30] MEDS: PANTOPRAZOLE 40MG DR TABLET PO SCH (09:00)
[2018-08-30] MEDS: SODIUM HYPOCHLORITE 0.125% 473ML SOLUTION TOP SCH ×2 (10:01→17:00)
[2018-08-30 11:59] LABS: BASOPHILS % 0.3 % (0.0-2.0); EOSINOPHILS % 0.5 % (0.0-5.0); HEMOGLOBIN. 7.6 g/dL (14.0-18.0); LYMPHOCYTES % 30.2 % (20.0-50.0); MEAN CORPUSCULAR HEMOGLOBIN 29.2 pg (28.0-32.0); MEAN CORPUSCULAR VOLUME 84.7 fL (80.0-94.0); MEAN PLATELET VOLUME 9.2 fl (7.4-10.4); MONOCYTES % 4.6 % (2.0-8.0); NEUTROPHILS % 64.4 % (40.0-76.0); PLATELET 74 x1000/uL (130-400); RED CELL DISTRIBUTION WIDTH 15.4 % (11.6-14.6)
[2018-08-30 12:00] VITALS: BP 116/63
[2018-08-30 12:12] LABS: GENTAMICIN RANDOM 1.2 ug/mL
[2018-08-30] MEDS ORDERED: GENTAMICIN 80MG PREMIX 100 ML IV NR (14:00)
[2018-08-30 16:00] VITALS: BP 99/52
[2018-08-30 20:00] VITALS: BP 102/51
[2018-08-31] VITALS: BP 110/65
[2018-08-31] MEDS: DEXT 5%/0.9% NACL 1,000 ML IV SCH (02:40)
[2018-08-31 04:00] VITALS: BP 101/60
[2018-08-31] MEDS: MORPHINE SULFATE 4 MG/ML CPJ (NOT FOR IM USE) IV PRN (05:32)
[2018-08-31] MEDS: BLOOD SUGAR DIAGNOSTIC STRIP TEST SCH ×4 (05:38→21:31)
[2018-08-31 08:00] VITALS: BP 91/71
[2018-08-31] MEDS: POTASSIUM CHLORIDE 20MEQ/PACKET PO SCH (08:50)
[2018-08-31] MEDS: FERROUS SULFATE 325MG TABLET PO SCH ×3 (08:50→17:50)
[2018-08-31] MEDS: LACTOBACILLUS GG CAPSULE PO SCH (08:50)
[2018-08-31] MEDS: FOLIC ACID/VITAMIN B COMP W-C TABLET PO SCH (08:50)
[2018-08-31] MEDS: MIDODRINE HCL 5MG TABLET PO SCH (08:51)
[2018-08-31] MEDS: SODIUM HYPOCHLORITE 0.125% 473ML SOLUTION TOP SCH ×2 (09:00→17:22)
[2018-08-31] MEDS: PANTOPRAZOLE 40MG DR TABLET PO SCH (09:00)
[2018-08-31] MEDS: INSULIN LISPRO 100 UNITS/ML SUBCUT SCH ×4 (09:01→21:00)
[2018-08-31 12:00] VITALS: BP 94/51
[2018-08-31 16:00] VITALS: BP 110/54
[2018-08-31] MEDS: MIDODRINE HCL 2.5MG TABLET PO SCH (17:15)
[2018-08-31] MEDS: ACETAMINOPHEN 325MG TABLET PO PRN (17:16)
[2018-08-31 20:00] VITALS: BP 147/66
[2018-09-01] VITALS (11 sets, daily range): BP systolic 95–152; BP diastolic 43–71
[2018-09-01] MEDS: DEXT 5%/0.9% NACL 1,000 ML IV SCH ×2 (03:10→20:57)
[2018-09-01] MEDS: BLOOD SUGAR DIAGNOSTIC STRIP TEST SCH ×4 (07:20→21:00)
[2018-09-01] MEDS: FERROUS SULFATE 325MG TABLET PO SCH ×3 (07:50→16:50)
[2018-09-01 08:53] LABS: BASOPHILS % 0.9 % (0.0-2.0); EOSINOPHILS % 0.5 % (0.0-5.0); LYMPHOCYTES % 25.4 % (20.0-50.0); MEAN CORPUSCULAR HEMOGLOBIN 29.1 pg (28.0-32.0); MEAN CORPUSCULAR VOLUME 84.4 fL (80.0-94.0); MEAN PLATELET VOLUME 8.8 fl (7.4-10.4); MONOCYTES % 7.3 % (2.0-8.0); NEUTROPHILS % 65.9 % (40.0-76.0); PLATELET 83 x1000/uL (130-400); RED BLOOD CELL COUNT 2.13 mill/uL (4.7-6.1); RED CELL DISTRIBUTION WIDTH 15.7 % (11.6-14.6)
[2018-09-01] MEDS: SODIUM HYPOCHLORITE 0.125% 473ML SOLUTION TOP SCH ×2 (09:00→16:51)
[2018-09-01] MEDS: PANTOPRAZOLE 40MG DR TABLET PO SCH (09:00)
[2018-09-01] MEDS: FOLIC ACID/VITAMIN B COMP W-C TABLET PO SCH (09:00)
[2018-09-01] MEDS: POTASSIUM CHLORIDE 20MEQ/PACKET PO SCH (09:00)
[2018-09-01] MEDS: LACTOBACILLUS GG CAPSULE PO SCH (09:00)
[2018-09-01 09:02] LABS: HEMOGLOBIN. 6.2 g/dL (14.0-18.0)
[2018-09-01 09:11] LABS: GENTAMICIN RANDOM 2.6 ug/mL
[2018-09-01] MEDS: MIDODRINE HCL 2.5MG TABLET PO SCH ×2 (09:16→16:50)
[2018-09-01] MEDS: INSULIN LISPRO 100 UNITS/ML SUBCUT SCH ×4 (09:21→23:38)
[2018-09-01] MEDS ORDERED: POTASSIUM CHLORIDE 20MEQ TABLET SR PO SCH (10:00)
[2018-09-01] MEDS ORDERED: GENTAMICIN 80MG PREMIX 100 ML IV NR (16:00)
[2018-09-01] MEDS: CLINDAMYCIN 600 MG in DEXTROSE 5% WATER 50 ML IV SCH (17:58)
[2018-09-02] VITALS: BP 124/66
[2018-09-02] MEDS: CLINDAMYCIN 600 MG in DEXTROSE 5% WATER 50 ML IV SCH ×4 (02:59→18:00)
[2018-09-02 04:00] VITALS: BP 117/66
[2018-09-02] MEDS: BLOOD SUGAR DIAGNOSTIC STRIP TEST SCH ×4 (07:48→20:25)
[2018-09-02] MEDS: FERROUS SULFATE 325MG TABLET PO SCH ×3 (07:50→17:10)
[2018-09-02 08:00] VITALS: BP 122/81
[2018-09-02] MEDS: INSULIN LISPRO 100 UNITS/ML SUBCUT SCH ×4 (08:37→21:39)
[2018-09-02] MEDS: FOLIC ACID/VITAMIN B COMP W-C TABLET PO SCH (09:00)
[2018-09-02] MEDS: MIDODRINE HCL 2.5MG TABLET PO SCH ×2 (09:00→17:00)
[2018-09-02] MEDS: LACTOBACILLUS GG CAPSULE PO SCH (09:00)
[2018-09-02] MEDS: POTASSIUM CHLORIDE 20MEQ/PACKET PO SCH (09:00)
[2018-09-02] MEDS: PANTOPRAZOLE 40MG DR TABLET PO SCH (09:00)
[2018-09-02] MEDS: SODIUM HYPOCHLORITE 0.125% 473ML SOLUTION TOP SCH ×2 (10:38→18:23)
[2018-09-02 12:00] VITALS: BP 107/54
[2018-09-02 16:00] VITALS: BP 126/69
[2018-09-02] MEDS: DEXT 5%/0.9% NACL 1,000 ML IV SCH (16:57)
[2018-09-02 20:00] VITALS: BP 121/65
[2018-09-03] VITALS (8 sets, daily range): BP systolic 90–152; BP diastolic 41–79
[2018-09-03] MEDS: CLINDAMYCIN 600 MG in DEXTROSE 5% WATER 50 ML IV SCH ×3 (02:01→17:39)
[2018-09-03] MEDS: DEXT 5%/0.9% NACL 1,000 ML IV SCH ×2 (02:02→17:40)
[2018-09-03] MEDS: BLOOD SUGAR DIAGNOSTIC STRIP TEST SCH ×4 (07:17→21:00)
[2018-09-03] MEDS: INSULIN LISPRO 100 UNITS/ML SUBCUT SCH ×4 (07:50→21:00)
[2018-09-03] MEDS: FERROUS SULFATE 325MG TABLET PO SCH ×3 (07:50→17:12)
[2018-09-03] MEDS: LACTOBACILLUS GG CAPSULE PO SCH (09:00)
[2018-09-03] MEDS: POTASSIUM CHLORIDE 20MEQ/PACKET PO SCH (09:00)
[2018-09-03] MEDS: PANTOPRAZOLE 40MG DR TABLET PO SCH (09:00)
[2018-09-03] MEDS: FOLIC ACID/VITAMIN B COMP W-C TABLET PO SCH (09:00)
[2018-09-03] MEDS: MIDODRINE HCL 2.5MG TABLET PO SCH ×3 (09:07→22:46)
[2018-09-03] MEDS: SODIUM HYPOCHLORITE 0.125% 473ML SOLUTION TOP SCH ×2 (09:09→17:44)
[2018-09-03 19:14] LABS: BASOPHILS % 0.2 % (0.0-2.0); LYMPHOCYTES % 13.1 % (20.0-50.0); MEAN CORPUSCULAR HEMOGLOBIN 29.4 pg (28.0-32.0); MEAN CORPUSCULAR VOLUME 82.9 fL (80.0-94.0); MEAN PLATELET VOLUME 8.5 fl (7.4-10.4); NEUTROPHILS % 82.7 % (40.0-76.0); PLATELET 70 x1000/uL (130-400); RED BLOOD CELL COUNT 2.26 mill/uL (4.7-6.1)
[2018-09-03 19:20] LABS: HEMATOCRIT. 18.8 % (42.0-52.0); HEMOGLOBIN. 6.6 g/dL (14.0-18.0)
[2018-09-04] VITALS (112 sets, daily range): BP systolic 67–172; BP diastolic 33–105
[2018-09-04] MEDS: CLINDAMYCIN 600 MG in DEXTROSE 5% WATER 50 ML IV SCH ×2 (04:26→14:04)
[2018-09-04] MEDS ORDERED: DOPAMINE 400MG PREMIX 250 ML IV PRN (07:00)
[2018-09-04] MEDS ORDERED: NOREPINEPHRINE 4MG/250ML PMX 250 ML IV ONE (07:00)
[2018-09-04] MEDS ORDERED: LIDOCAINE HCL/EPINEPHRINE 1%-EPI 1:100,000 20 ML VIAL INFIL SCH (07:00)
[2018-09-04] MEDS: BLOOD SUGAR DIAGNOSTIC STRIP TEST SCH ×4 (07:00→23:12)
[2018-09-04] MEDS: INSULIN LISPRO 100 UNITS/ML SUBCUT SCH ×4 (07:00→23:13)
[2018-09-04 07:35] LABS: BG BASE EXCESS -14.7 mmol/L (-2.0-2.0); BG CARBOXYHEMOGLOBIN 1.3 % (0.5-1.5); BG DEOXYHEMOGLOBIN 19.2 % (0.0-5.0); BG FRACTION INSPIRED OXYGEN 100; BG HCO3 ACT 15.6 mmol/L (22.0-26.0); BG METHEMOGLOBIN 0.3 % (0.0-1.5); BG OXYGEN SATURATION 80.5 % (92.0-98.5); BG OXYHEMOGLOBIN 79.2 % (94.0-97.0); BG PCO2 60.1 mmHg (35.0-45.0); BG PH 7.031 (7.350-7.450); BG PO2 64.8 mmHg (75.0-100.0); BG SAMPLE SITE RIGHT RADIAL; BG TIDAL VOLUME(mL) 550 mL; BG TOTAL HEMOGLOBIN 8.8 g/dL (12.0-18.0); BG VENT MODE VENT - A/C; BG VENT RATE 14 set
[2018-09-04 07:59] LABS: MEAN CORPUSCULAR HEMOGLOBIN 28.7 pg (28.0-32.0); MEAN CORPUSCULAR VOLUME 86.2 fL (80.0-94.0); PLATELET 69 x1000/uL (130-400); RED BLOOD CELL COUNT 3.13 mill/uL (4.7-6.1); RED CELL DISTRIBUTION WIDTH 15.3 % (11.6-14.6)
[2018-09-04] MEDS ORDERED: SODIUM BICARBONATE 8.4% 1 MEQ/ML 50ML SYR IV SCH (08:00)
[2018-09-04 08:05] LABS: CHLORIDE 106 mEq/L (98-107)
[2018-09-04] MEDS: FERROUS SULFATE 325MG TABLET PO SCH ×3 (08:06→18:20)
[2018-09-04 08:11] LABS: PHOSPHORUS 6.5 mg/dL (2.5-4.9)
[2018-09-04] MEDS ORDERED: DOPAMINE 800MG PREMIX 250 ML IV PRN ×2 (08:15)
[2018-09-04 08:38] LABS: INR 2.5; PARTIAL THROMBOPLASTIN TIME 44.1 sec (23.4-31.0); PROTHROMBIN TIME 24.7 sec (9.1-11.1)
[2018-09-04] MEDS: NOREPINEPHRINE 8 MG in DEXT 5% WATER 242 ML IV PRN ×3 (08:49→20:39)
[2018-09-04] MEDS: MIDODRINE HCL 2.5MG TABLET PO SCH ×2 (09:00→16:31)
[2018-09-04] MEDS: PHENYLEPHRINE 40 MG in DEXT 5% WATER 246 ML IV PRN ×2 (10:12→19:01)
[2018-09-04 10:43] LABS: BG BASE EXCESS -9.6 mmol/L (-2.0-2.0); BG CARBOXYHEMOGLOBIN 0.3 % (0.5-1.5); BG DEOXYHEMOGLOBIN 0.8 % (0.0-5.0); BG FRACTION INSPIRED OXYGEN 100; BG HCO3 ACT 15.2 mmol/L (22.0-26.0); BG METHEMOGLOBIN 0.5 % (0.0-1.5); BG OXYGEN SATURATION 99.2 % (92.0-98.5); BG OXYHEMOGLOBIN 98.4 % (94.0-97.0); BG PCO2 29.4 mmHg (35.0-45.0); BG PH 7.331 (7.350-7.450); BG PO2 406.4 mmHg (75.0-100.0); BG SAMPLE SITE RIGHT RADIAL; BG TIDAL VOLUME(mL) 550 mL; BG TOTAL HEMOGLOBIN 10.3 g/dL (12.0-18.0); BG VENT MODE VENT - A/C; BG VENT RATE 20 set
[2018-09-04] MEDS: LACTOBACILLUS GG CAPSULE PO SCH (11:24)
[2018-09-04] MEDS: POTASSIUM CHLORIDE 20MEQ/PACKET PO SCH (11:24)
[2018-09-04] MEDS: PANTOPRAZOLE 40MG DR TABLET PO SCH (11:24)
[2018-09-04] MEDS: FOLIC ACID/VITAMIN B COMP W-C TABLET PO SCH (11:24)
[2018-09-04] MEDS ORDERED: POTASSIUM CHLORIDE 20MEQ/PACKET NG SCH (11:45)
[2018-09-04] MEDS ORDERED: SODIUM BICARBONATE 7.5% 0.9 MEQ/ML 50ML SYR IV ONE (12:16)
[2018-09-04] MEDS ORDERED: CALCIUM CHLORIDE 1GM/10ML SYR IV ONE (12:16)
[2018-09-04] MEDS ORDERED: ATROPINE SULFATE 1MG/10ML SYR ONE (12:16)
[2018-09-04] MEDS: SODIUM HYPOCHLORITE 0.125% 473ML SOLUTION TOP SCH ×2 (14:05→16:31)
[2018-09-04 15:59] LABS: NUCLEATED RED BLOOD CELLS 4 /100 WBC; PLATELET ESTIMATE DECREASED
[2018-09-04] MEDS ORDERED: AMIKACIN SULFATE 300 MG in SODIUM CHLORIDE 0.9% 100 ML IV NR (17:00)
[2018-09-04] MEDS: MEROPENEM 500 MG in SODIUM CHLORIDE 0.9% 50 ML IV SCH (18:59)
[2018-09-04] MEDS ORDERED: VANCOMYCIN 1,750 MG in DEXT 5% WATER 250 ML IV NR (20:00)
[2018-09-04] MEDS ORDERED: VASOPRESSIN 10 UNIT in SODIUM CHLORIDE 0.9% 99.5 ML IV PRN (20:30)
[2018-09-04] MEDS ORDERED: PHENYLEPHRINE 80 MG in DEXT 5% WATER 492 ML IV PRN (22:30)
[2018-09-05] VITALS (95 sets, daily range): BP systolic 77–167; BP diastolic 43–113
[2018-09-05] MEDS: NOREPINEPHRINE 16 MG in DEXT 5% WATER 484 ML IV PRN ×2 (01:26→12:31)
[2018-09-05] MEDS ORDERED: PHENYLEPHRINE 80 MG in DEXT 5% WATER 492 ML IV PRN (04:00)
[2018-09-05] MEDS: INSULIN LISPRO 100 UNITS/ML SUBCUT SCH ×3 (06:00→18:01)
[2018-09-05] MEDS: BLOOD SUGAR DIAGNOSTIC STRIP TEST SCH ×2 (06:06→12:22)
[2018-09-05] MEDS: MIDODRINE HCL 2.5MG TABLET PO SCH ×2 (08:48→18:00)
[2018-09-05 08:55] LABS: BG BASE EXCESS -6.2 mmol/L (-2.0-2.0); BG CARBOXYHEMOGLOBIN 0.1 % (0.5-1.5); BG DEOXYHEMOGLOBIN 1.6 % (0.0-5.0); BG FRACTION INSPIRED OXYGEN 40; BG HCO3 ACT 16.9 mmol/L (22.0-26.0); BG METHEMOGLOBIN 0.1 % (0.0-1.5); BG OXYGEN SATURATION 98.4 % (92.0-98.5); BG OXYHEMOGLOBIN 98.2 % (94.0-97.0); BG PCO2 25.5 mmHg (35.0-45.0); BG PH 7.438 (7.350-7.450); BG PO2 136.5 mmHg (75.0-100.0); BG SAMPLE SITE RIGHT RADIAL; BG TIDAL VOLUME(mL) 550 mL; BG TOTAL HEMOGLOBIN 9.6 g/dL (12.0-18.0); BG VENT MODE VENT - A/C; BG VENT RATE 20 set
[2018-09-05] MEDS: SODIUM HYPOCHLORITE 0.125% 473ML SOLUTION TOP SCH ×2 (09:00→17:49)
[2018-09-05 09:11] LABS: HEMATOCRIT. 27.4 % (42.0-52.0); HEMOGLOBIN. 9.3 g/dL (14.0-18.0); MEAN CORPUSCULAR HEMOGLOBIN 28.3 pg (28.0-32.0); MEAN CORPUSCULAR VOLUME 83.5 fL (80.0-94.0); MEAN PLATELET VOLUME 10.2 fl (7.4-10.4); RED BLOOD CELL COUNT 3.28 mill/uL (4.7-6.1); RED CELL DISTRIBUTION WIDTH 15.7 % (11.6-14.6)
[2018-09-05] MEDS: FOLIC ACID/VITAMIN B COMP W-C TABLET PO SCH (10:34)
[2018-09-05] MEDS: FERROUS SULFATE 300MG/5ML UDC PO SCH ×3 (10:34→18:00)
[2018-09-05] MEDS: LACTOBACILLUS GG CAPSULE PO SCH (10:34)
[2018-09-05] MEDS: POTASSIUM CHLORIDE 20MEQ/PACKET PO SCH (10:34)
[2018-09-05] MEDS: PANTOPRAZOLE 40MG DR TABLET PO SCH (10:35)
[2018-09-05 11:13] LABS: PLATELET 38 x1000/uL (130-400); PLATELET ESTIMATE MARKEDLY DECREASED
[2018-09-05] MEDS: MEROPENEM 500 MG in SODIUM CHLORIDE 0.9% 50 ML IV SCH (17:50)
[2018-09-06] VITALS (39 sets, daily range): BP systolic 115–141; BP diastolic 69–85
[2018-09-06] MEDS: NOREPINEPHRINE 16 MG in DEXT 5% WATER 484 ML IV PRN (01:21)
[2018-09-06 06:48] LABS: HEMATOCRIT. 25.9 % (42.0-52.0); HEMOGLOBIN. 9.1 g/dL (14.0-18.0); MEAN CORPUSCULAR HEMOGLOBIN 28.7 pg (28.0-32.0); MEAN PLATELET VOLUME 10.2 fl (7.4-10.4); PLATELET 11 x1000/uL (130-400); RED BLOOD CELL COUNT 3.16 mill/uL (4.7-6.1); RED CELL DISTRIBUTION WIDTH 15.4 % (11.6-14.6)
[2018-09-06] MEDS: FERROUS SULFATE 300MG/5ML UDC PO SCH (08:20)
[2018-09-06] MEDS ORDERED: PANTOPRAZOLE SODIUM 40 MG/VIAL IV SCH (09:00)
[2018-09-06] MEDS: FOLIC ACID/VITAMIN B COMP W-C TABLET PO SCH (09:48)
[2018-09-06] MEDS: MIDODRINE HCL 2.5MG TABLET PO SCH (09:48)
[2018-09-06] MEDS: LACTOBACILLUS GG CAPSULE PO SCH (09:48)
[2018-09-06] MEDS: POTASSIUM CHLORIDE 20MEQ/PACKET PO SCH (09:49)
[2018-09-06] MEDS: SODIUM HYPOCHLORITE 0.125% 473ML SOLUTION TOP SCH (09:50)
[2018-09-06 09:54] LABS: BG BASE EXCESS -2.4 mmol/L (-2.0-2.0); BG CARBOXYHEMOGLOBIN 0.3 % (0.5-1.5); BG DEOXYHEMOGLOBIN 1.8 % (0.0-5.0); BG FRACTION INSPIRED OXYGEN 40; BG HCO3 ACT 19.6 mmol/L (22.0-26.0); BG METHEMOGLOBIN 0.1 % (0.0-1.5); BG OXYGEN SATURATION 98.2 % (92.0-98.5); BG OXYHEMOGLOBIN 97.8 % (94.0-97.0); BG PH 7.513 (7.350-7.450); BG PO2 147.3 mmHg (75.0-100.0); BG SAMPLE SITE RIGHT RADIAL; BG TIDAL VOLUME(mL) 550 mL; BG TOTAL HEMOGLOBIN 9.7 g/dL (12.0-18.0); BG VENT MODE VENT - A/C; BG VENT RATE 20 set
[2018-09-06] MEDS ORDERED: POTASSIUM CHLORIDE INJ 40 MEQ in DEXT 5% WATER 250 ML IV NR (10:00)
[2018-09-06 10:09] LABS: PLATELET ESTIMATE MARKEDLY DECREASED
[2018-09-06] MEDS ORDERED: LEVETIRACETAM 500 MG in SODIUM CHLORIDE 0.9% 100 ML IV SCH (11:00)
[2018-09-06] MEDS ORDERED: MORPHINE SULFATE 100 MG in DEXT 5% WATER 90 ML IV PRN (11:15)
== END 2018-09-06 13:31 | disposition expired | DRG 720 ==
LOC: ER 15:27 → 6WST 19:27 → EDBEDREQSVC 19:41 → EDBEDREQTM 19:41 → EDBEDREQ 19:41 → ENRESERV 20:36 → CVICU 07-24 08:58 → 7WST 07-28 09:37 → 5EST 08-09 16:53 → 6EST 08-23 14:50 → CVICU 09-04 07:00
PROVIDERS: ADMIT Internal Medicine Geriatric Medicine; ATTEND Internal Medicine Geriatric Medicine
PROC: 30233N1 Transfusion of Nonautologous Red Blood Cells into Peripheral Vein, Percutaneous Approach (ICD-10-PCS; 2018-07-18)
PROC: 06HY33Z Insertion of Infusion Device into Lower Vein, Percutaneous Approach (ICD-10-PCS; 2018-07-18)
PROC: B54BZZZ Ultrasonography of Right Lower Extremity Veins (ICD-10-PCS; 2018-07-18)
PROC: 06HY33Z Insertion of Infusion Device into Lower Vein, Percutaneous Approach (ICD-10-PCS; 2018-07-24)
PROC: B54CZZZ Ultrasonography of Left Lower Extremity Veins (ICD-10-PCS; 2018-07-24)
PROC: 5A1D70Z Performance of Urinary Filtration, Intermittent, Less than 6 Hours Per Day (ICD-10-PCS; principal; 2018-07-25)
PROC: 5A1D70Z Performance of Urinary Filtration, Intermittent, Less than 6 Hours Per Day (ICD-10-PCS; 2018-07-27)
PROC: 5A1D70Z Performance of Urinary Filtration, Intermittent, Less than 6 Hours Per Day (ICD-10-PCS; 2018-07-30)
PROC: 5A1D70Z Performance of Urinary Filtration, Intermittent, Less than 6 Hours Per Day (ICD-10-PCS; 2018-08-01)
PROC: 5A1D70Z Performance of Urinary Filtration, Intermittent, Less than 6 Hours Per Day (ICD-10-PCS; 2018-08-03)
PROC: 5A1D70Z Performance of Urinary Filtration, Intermittent, Less than 6 Hours Per Day (ICD-10-PCS; 2018-08-05)
PROC: 5A1D70Z Performance of Urinary Filtration, Intermittent, Less than 6 Hours Per Day (ICD-10-PCS; 2018-08-07)
PROC: 5A1D70Z Performance of Urinary Filtration, Intermittent, Less than 6 Hours Per Day (ICD-10-PCS; 2018-08-08)
PROC: 02HV33Z Insertion of Infusion Device into Superior Vena Cava, Percutaneous Approach (ICD-10-PCS; 2018-08-09)
PROC: B5181ZA Fluoroscopy of Superior Vena Cava using Low Osmolar Contrast, Guidance (ICD-10-PCS; 2018-08-09)
PROC: B548ZZA Ultrasonography of Superior Vena Cava, Guidance (ICD-10-PCS; 2018-08-09)
PROC: 5A1D70Z Performance of Urinary Filtration, Intermittent, Less than 6 Hours Per Day (ICD-10-PCS; 2018-08-10)
PROC: 06H03DZ Insertion of Intraluminal Device into Inferior Vena Cava, Percutaneous Approach (ICD-10-PCS; 2018-08-10)
PROC: B5191ZZ Fluoroscopy of Inferior Vena Cava using Low Osmolar Contrast (ICD-10-PCS; 2018-08-10)
PROC: B549ZZZ Ultrasonography of Inferior Vena Cava (ICD-10-PCS; 2018-08-10)
PROC: 06HY33Z Insertion of Infusion Device into Lower Vein, Percutaneous Approach (ICD-10-PCS; 2018-08-10)
PROC: B51C1ZZ Fluoroscopy of Left Lower Extremity Veins using Low Osmolar Contrast (ICD-10-PCS; 2018-08-10)
PROC: 5A1D70Z Performance of Urinary Filtration, Intermittent, Less than 6 Hours Per Day (ICD-10-PCS; 2018-08-13)
PROC: 5A1D70Z Performance of Urinary Filtration, Intermittent, Less than 6 Hours Per Day (ICD-10-PCS; 2018-08-16)
PROC: 5A1D70Z Performance of Urinary Filtration, Intermittent, Less than 6 Hours Per Day (ICD-10-PCS; 2018-08-17)
PROC: 5A1D70Z Performance of Urinary Filtration, Intermittent, Less than 6 Hours Per Day (ICD-10-PCS; 2018-08-18)
PROC: 5A1D70Z Performance of Urinary Filtration, Intermittent, Less than 6 Hours Per Day (ICD-10-PCS; 2018-08-19)
PROC: 5A1D70Z Performance of Urinary Filtration, Intermittent, Less than 6 Hours Per Day (ICD-10-PCS; 2018-08-20)
PROC: 5A1D70Z Performance of Urinary Filtration, Intermittent, Less than 6 Hours Per Day (ICD-10-PCS; 2018-08-23)
PROC: 5A1D70Z Performance of Urinary Filtration, Intermittent, Less than 6 Hours Per Day (ICD-10-PCS; 2018-08-25)
PROC: 5A1D70Z Performance of Urinary Filtration, Intermittent, Less than 6 Hours Per Day (ICD-10-PCS; 2018-08-26)
PROC: 5A1D70Z Performance of Urinary Filtration, Intermittent, Less than 6 Hours Per Day (ICD-10-PCS; 2018-08-29)
PROC: 5A1D70Z Performance of Urinary Filtration, Intermittent, Less than 6 Hours Per Day (ICD-10-PCS; 2018-08-31)
PROC: 5A1D70Z Performance of Urinary Filtration, Intermittent, Less than 6 Hours Per Day (ICD-10-PCS; 2018-09-02)
PROC: 5A1945Z Respiratory Ventilation, 24-96 Consecutive Hours (ICD-10-PCS; 2018-09-04)
PROC: 0BH17EZ Insertion of Endotracheal Airway into Trachea, Via Natural or Artificial Opening (ICD-10-PCS; 2018-09-04)
PROC: 5A12012 Performance of Cardiac Output, Single, Manual (ICD-10-PCS; 2018-09-04)
DX: A41.51 Sepsis due to Escherichia coli [E. coli] (principal); J96.00 Acute respiratory failure, unspecified whether with hypoxia or hypercapnia; E43 Unspecified severe protein-calorie malnutrition; R65.21 Severe sepsis with septic shock; G92 Toxic encephalopathy; J18.9 Pneumonia, unspecified organism; I46.9 Cardiac arrest, cause unspecified; I13.2 Hypertensive heart and chronic kidney disease with heart failure and with stage 5 chronic kidney disease, or end stage renal disease; E11.22 Type 2 diabetes mellitus with diabetic chronic kidney disease; B37.49 Other urogenital candidiasis; E11.51 Type 2 diabetes mellitus with diabetic peripheral angiopathy without gangrene; I50.9 Heart failure, unspecified; J44.0 Chronic obstructive pulmonary disease with (acute) lower respiratory infection; N18.6 End stage renal disease; M60.9 Myositis, unspecified; D63.8 Anemia in other chronic diseases classified elsewhere; D69.6 Thrombocytopenia, unspecified; E11.40 Type 2 diabetes mellitus with diabetic neuropathy, unspecified; E87.5 Hyperkalemia; E87.6 Hypokalemia; F32.9 Major depressive disorder, single episode, unspecified; G40.909 Epilepsy, unspecified, not intractable, without status epilepticus; I82.403 Acute embolism and thrombosis of unspecified deep veins of lower extremity, bilateral; I95.9 Hypotension, unspecified; L02.31 Cutaneous abscess of buttock; L89.150 Pressure ulcer of sacral region, unstageable; E83.51 Hypocalcemia; N31.9 Neuromuscular dysfunction of bladder, unspecified; Z66 Do not resuscitate; Z79.01 Long term (current) use of anticoagulants; Z79.4 Long term (current) use of insulin; Z79.51 Long term (current) use of inhaled steroids; Z89.511 Acquired absence of right leg below knee; Z89.512 Acquired absence of left leg below knee; Z99.2 Dependence on renal dialysis; Z86.73 Personal history of transient ischemic attack (TIA), and cerebral infarction without residual deficits; Z88.8 Allergy status to other drugs, medicaments and biological substances; Z88.6 Allergy status to analgesic agent; Z88.1 Allergy status to other antibiotic agents; Z91.012 Allergy to eggs; Z91.013 Allergy to seafood; Z88.0 Allergy status to penicillin; Z89.611 Acquired absence of right leg above knee; Z89.612 Acquired absence of left leg above knee; Z91.15 Patient's noncompliance with renal dialysis; Z91.19 Patient's noncompliance with other medical treatment and regimen; Z79.899 Other long term (current) drug therapy; Z68.27 Body mass index [BMI] 27.0-27.9, adult
CPT/HCPCS: 36415; 36569; 36580; 36600; 37191; 70544; 70553; 71045; 71046; 73718; 74018; 74176; 76881; 76937; 77001; 78580; 78610; 80048; 80051; 80076; 80170; 80202; 80305; 82140; 82270; 82375; 82550; 82784; 82805; 82962; 83036; 83540; 83550; 83605; 83735; 83880; 84100; 84132; 84134; 84145; 84443; 84484; 85014; 85018; 85384; 85576; 86022; 86334; 86705; 86709; 86803; 86850; 86900; 86920; 87015; 87045; 87070; 87077; 87177; 87186; 87209; 87340; 87427; 87449; 87493; 87804; 89055; 92610; 92950; 93005; 93306; 93970; 94002; 94003; 94640; 96374; 96375; 96376; 97163; 97530; 99285; A6261; A9512; C1725; C1752; C1769; C1880; C1893; G0482; J0278; J0461; J0610; J0878; J0885; J1170; J1200; J1265; J1580; J1642; J1644; J1650; J1815; J1953; J2020; J2185; J2270; J2370; J2405; J3370; J3480; J3490; J7030; J7040; J7042; J7050; J7060; J7620; P9016; P9047; Q0163; Q9963; Q9967; A4315